=== PATIENT | female | born 1940 | race African-American/Black ===

== ENCOUNTER → 2016-12-24 | Outpatient (CLI) | payer MEDICARE, MEDICAID ==
--- NOTE | 2016-12-24 16:53 | RADIOLOGY REPORT (SQ) ---
EXAM DESCRIPTION: U/S NON-OB PELVIS W/O DOP COMPLETED DATE/TIME: 12/24/2016 4:41 pm REASON FOR STUDY: BENIGN NEOPLASM OF UTERUS D28.2 BENIGN NEOPLASM OF UTERINE TUBES AND LIGAMENTS Z5 3.8 PROCEDURE AND TREATMENT NOT CARRIED OUT FOR OTHER REAS COMPARISON: None. TECHNIQUE: Dynamic and static grayscale images acquired of the pelvis via transabdominal approach an d recorded on PACS. Additional selected color Doppler and spectral images recorded. LIMITATIONS: None. FINDINGS: UTERUS: Enlarged. Multiple calcified fibroids. ENDOMETRIAL STRIPE: Not visualized. CERVIX: No nabothian cysts. RIGHT OVARY: Not visualized. LEFT OVARY: Not visualized. FREE FLUID: None noted. OTHER: No other significant finding. MEASUREMENTS: UTERUS: 14.2 x 7.2 x 7.4 cm ENDOMETRIAL STRIPE: Not visualized. RIGHT OVARY: Not visualized. LEFT OVARY: Not visualized. IMPRESSION: Multiple calcified uterine fibroids and enlarged uterus. Ovaries not identified. TECHNICAL DOCUMENTATION: JOB ID: [id number]- All Rights Reserved
== END ==
LOC: RAD 12-15 12:52
PROVIDERS: ATTEND Internal Medicine
DX: D28.2 Benign neoplasm of uterine tubes and ligaments (principal); Z53.8 Procedure and treatment not carried out for other reasons
CPT/HCPCS: 76856

== ENCOUNTER 2017-06-12 14:04 | Observation (INO) | payer MEDICARE, MEDICAID ==
--- NOTE | 2017-06-12 14:34 | ER Document Report ---
ED Neuro Symptoms/Deficit - General Mode of Arrival: Wheelchair Information source: Patient, Relative Notes: Patient is a 77 year old female with a history of TIA and extreme anxiety attacks presents to the emergency department accompanied by her daughter complaining of tingling sensation around her mouth onset 10:00 am today. Daughter called the EMS when she noticed the patient was having a tingly sensation in her left hand as well unintelligible speech. EMS confirmed vitals were fine. Daughter states that the patient has the above symptom every 2-3 months accompanied by unintelligible speech. Daughter states that the patient was diagnosed with extreme anxiety attacks which causes the difference in the patients speech. Daughter is unsure if patient was having another stroke or another anxiety attack. Daughter states during the patients last stroke, the patient was only severely dizzy. Daughter also states that the patient has been occasionally sundowning. Patient was a poor historian due to moderate stage dementia. At bedside, patient was able to understand commands well for upper extremities. When asked name, location, and time, patient gave incomprehensible answers. When asked if had any questions, patient stated " I have so many, just glad to be here". Patient currently takes Tramadol and Aggrenox. TRAVEL OUTSIDE OF THE [place] IN LAST 30 DAYS: No - HPI Patient complains to provider of: No: Facial Droop Onset: Just prior to arrival Patient Orientation: No: Person, Place, Time <ELIOT VIRK - Last Filed: 06/12/17 23:17> <LINN COLEMAN - Last Filed: 06/12/17 23:33> - General Chief Complaint: Numbness Stated Complaint: TINGLING SENSATION ON FACE Time Seen by Provider: 06/12/17 14:10 - Related Data Allergies/Adverse Reactions: No Known Allergies Allergy (Verified 09/21/15 23:28) Past Medical History - General Information source: Patient, Relative - Social History Smoking Status: Former Smoker Cigarette use (# per day): No Chew tobacco use (# tins/day): No Frequency of alcohol use: None Family History: Reviewed & Not Pertinent - Past Medical History Cardiac Medical History: Reports: Hx Hypercholesterolemia, Hx Hypertension Neurological Medical History: Reports: Hx Cerebrovascular Accident, Hx Seizures GI Medical History: Reports: Hx Gastroesophageal Reflux Disease Musculoskeltal Medical History: Reports Hx Arthritis, Reports Hx Gout Psychiatric Medical History: Reports: Hx Anxiety, Hx Dementia Past Surgical History: Reports: Hx Abdominal Surgery - hernia repair, Hx Herniorrhaphy, Hx Tubal Ligation - Immunizations Hx Diphtheria, Pertussis, Tetanus Vaccination: Yes Hx Pneumococcal Vaccination: 08/02/13 <ELIOT VIRK - Last Filed: 06/12/17 23:17> Review of Systems - Review of Systems Constitutional: No symptoms reported EENT: No symptoms reported Cardiovascular: No symptoms reported Respiratory: No symptoms reported Gastrointestinal: No symptoms reported Genitourinary: No symptoms reported Female Genitourinary: No symptoms reported Musculoskeletal: No symptoms reported Skin: No symptoms reported Hematologic/Lymphatic: No symptoms reported Neurological/Psychological: See HPI, Dementia, Numbness, Tingling -: Yes All other systems reviewed and negative <ELIOT VIRK - Last Filed: 06/12/17 23:17> Physical Exam - Notes Notes: GENERAL: Alert, intearcts poorly. No acute distress. HEAD: Normocephalic, atraumatic. EYES: Pupils equal, round, and reactive to light. Extraocular movements intact. ENT: Oral mucosa moist, tongue midline. NECK: Full range of motion. Supple. Trachea midline. LUNGS: Clear to auscultation bilaterally, no wheezes, rales or rhonchi. No respiratory distress. HEART: Regular rate and rhythm. No murmurs, gallops, or rubs. ABDOMEN: Soft, non-tender. Non-distended. Bowel sounds present in all 4 quadrants. EXTREMITIES: Moves all 4 extremities spontaneously. Able to follow commands well for UE, difficulty following commands for lower extremities. trace pitting edema, radial and dorsalis pedis pulses 2/4 bilaterally. No cyanosis. NEUROLOGICAL: Alert. Able to answer some questions normally. When asked location , time, and place, patient was unable to answer speech was garbled and slurred. When asked if she had any questions, patient states " I have so many. Just glad to be here". cranial nerves II through XII grossly intact. Biceps and patellar DTRs 2+. Negative pronator drift. Muscle strength 4/5 RUE, 5/5 LUE. PSYCH: Patient has moderate stage dementia. Some confabulation. Normal mood. SKIN: Warm, dry, normal turgor. No rashes or lesions noted. <ELIOT VIRK - Last Filed: 06/12/17 23:17> - Vital signs Vitals: Pulse Resp BP Pulse Ox 58 L 18 157/65 H 100 06/12/17 14:20 06/12/17 14:20 06/12/17 14:20 06/12/17 14:20 <MONICALISALINN - Last Filed: 06/12/17 23:33> Course - Laboratory Result Diagrams: 06/12/17 15:15 06/12/17 15:15 <ELIOT VIRK - Last Filed: 06/12/17 23:17> - Re-evaluation Re-evalutation: 06/12/17 18:27 CBC shows mild anemia, coags normal, CMP grossly unremarkable slightly elevated LFTs but nonspecific, cardiac enzymes negative, CT scan of the head shows chronic small vessel ischemic disease and an old left parietal infarct but nothing acute, no evidence of bleed. Chest x-ray shows no acute process. Patient's presentation is unclear but concerning for possible stroke, patient is apparently had the same presentation multiple times in the past, daughter reports it happens about every 2 months and they have always thought it was just an anxiety attack, the daughter, Dr. Colón and I all agree will be prudent to try and get an MRI while the symptoms are occurring so we can see if there is any evidence of ischemia. Despite 4 mg of Ativan being given over the course of 2 hours the patient is still wide awake and somewhat agitated, unable to lie still for an MRI. At this point I do not feel comfortable giving any more Ativan given her age and the high dose that we have already reached. I discussed this with the daughter and Dr. Colón all of whom are in agreement , patient's symptoms have cleared, when she arrived she was no longer within timeframe for TPA. Patient appears to have had a TIA, discussed with Dr. Colón who will observe her overnight for a TIA. Patient and family members are agreeable to this plan. 06/12/17 23:32 Symptoms did improve significantly prior to transfer to the floor. - Vital Signs Vital signs: Temp Pulse Resp BP Pulse Ox 98.4 F 60 16 157/77 H 100 06/12/17 14:45 06/12/17 17:40 06/12/17 17:40 06/12/17 17:40 06/12/17 17:40 - Laboratory Result Diagrams: 06/12/17 15:15 06/12/17 15:15 Laboratory results interpreted by me: 06/12/17 06/12/17 15:15 15:15 RBC 3.33 L Hgb 11.6 L Hct 33.7 L MCV 101 H MCH 34.7 H Monocytes % 13.9 H Sodium 145.4 H Carbon Dioxide 31 H Est GFR ( Amer) 57 L Est GFR (Non-Af Amer) 47 L AST 46 H ALT 63 H - EKG Interpretation by Me Additional EKG results interpreted by me: 06/12/17 18:32 EKG shows sinus bradycardia at a rate of 52, left axis deviation, normal intervals, LVH, no ST segment elevations or depressions, nonspecific T-wave flattening in lead III per my interpretation. <LINN COLEMAN - Last Filed: 06/12/17 23:33> ED Alteplase Inc/Exc Criteria - Date/Time patient last known well: Date/Time: 06/12/17 10:00 a.m. - Date/Time patient arrived in ED: _: 06/12/17 14:20 - Inclusion Criteria: 1: Patient presented to ED within 3 hours of acute ischemic stroke symptom onset ? -: No 2: Did baseline CT exclude intracranial hemorrhage and/or other risk factors? -: Yes 3: Is the age of the patient 18 years of age or greater? -: No : If any of the above questions are answered "NO" then stop, patient is not a candidate for Alteplase, : If all of the above questions are answered "YES" then continue with Exclusion Criteria. - Exclusion Criteria: 1: Is there evidence of intracranial hemorrhage on baseline CT? -: No 2: Is there suspicion of subarachnoid hemorrhage (even if CT negative)? -: No 3: Is there a history of serious head trauma, recent previous stroke or NM within 3 months? 4: Does the patient have a clinical presentation consistent with NM or post-NM pericarditis? -: No 5: Is there history of intracranial hemorrhage? -: No 6: On repeated measurement is Systolic BP greater than 185mmHg or Diastolic BP greater that 110 mmHg and is aggressive treatment needed to reduce blood pressure to these limits (e.g. constant infusion of an anti-hypertensive)? -: No 7: Did the patient awake with stroke symptoms? -: No 8: Has the patient had a lumbar puncture or an arterial puncture at a non- compressile site within 7 days? -: No 9: With in the last 14 days did the patient have surgery or major trauma? -: No 10: Is the patient or less than 2 weeks? -: No 11: Was there any active bleeding or acute trauma? -: No 12: Does the patient have intracranial neoplasm, arteriovenous malformation or aneurysm? -: No 13: Does the patient have abnormal glucose (less than 50 or greater than 400mg/ dl)? Record glucose in Comment. -: No 14: Patient has rapidly improving symptoms at the time Alteplase is to be Administered. -: Yes 15: Does the patient have any risks for bleeding, including but not limited to: a.: Current use of Coumadin with PT greater than 15 seconds or INR greater than 1.7. b.: Current use of Pradaxa (Dabigatran). c.: Heparin administereed within the past 48 hours and PTT elevated. d.: Platelet count less than 100,000/mm. e.: Major surgery or serious trauma within 14 days. f.: Gastrointestinal or gynecological urinary bleeding within 14 days. g.: Myocardial Infarction (NM) within 3 months. : If the answer to any of the above questions is "YES" then stop, the patient is not a candidate for Alteplase. : If the answer to all of the above questions is "NO" then the patient may be eligible for the Administration of Alteplase. : If the patient is noted to have seizure activity at onset of Stroke symptoms; Consult Neurologist for further evaluation. - The patient is: -: Included and is eligible to receive Alteplase. *Initiate bed placement at higher level of care* --: No Reviewd risks & benefits of thrombolytic therapy: I have reviewed the risks and benefits of thrombolytic therapy with the patient and/or his/her family. -: Excluded and not eligible to receive Alteplase for the above exclusions. --: Yes -: Excluded and not eligible to receive Alteplase for other reasons (specify in comments): - Diagnosis of TIA: -: Patient presented with transient symptoms that are now resolved and no other neurologic findings are currently present. List symptoms in comments. -: Yes -: Patient is NOT a candidate for tPA. -: Yes -: ____(put name in comment) has been consulted for admission and continued evaluation of risk factor assessment. Comment: Lilly <MONICALINN GONZALEZ - Last Filed: 06/12/17 23:33> ED NIH Stroke Scale - NIH Stroke Scale *: 1. NIH scale should be completed with appropriate accompanying assessment tools. *: 2. The NIH should reflect what the patient is capable of doing and should not be coached by the clinician. 1a. Level of Consciousness: 0=Alert;keenly responsive -: 1=Drowsy -: 2=Obtunded -: 3=Coma/unresponsive or reflex to noxious stimuli. 1a. Responses: 0 1b. Orientation Questions: a. What month is it? -: b. How old are you? -: 0=Answers both questions correctly. -: 1=Answers one question correctly or patient is intubated or has orotracheal trauma. -: 2=Answers neither question correctly. 1b. Responses: 2 1c. Response to commands: a. Open and close eyes? -: b. Squeak Rattle And Leak Repairer and release hand? -: Credit is given despite weakness. Demonstration of task is permitted. Substitute command if hands cannot be used. -: 0=Performs both tasks correctly -: 1=Performs one task correctly -: 2=Performs neither task correctly 1c. Responses: 0 2. Gaze: Establish eye contact and instruct patient to "Follow my finger" -: 0=Normal -: 1=Partial gaze palsy. Gaze is abnormal in one or both eyes, but where forced deviation or total gaze paresis is not present. -: 2=Forced deviation or total gaze paresis. 3. Visual Best: Sees fingers in all four quadrants. -: 0=No visual loss. -: 1=Partial hemianopsia. -: 2=Complete hemianopsia. -: 3=Bilateral hemianopsia (including Cortical blindness) 4. Facial Movement: Instruct patient to: -: a. Show me your teeth -: b. Raise your eyebrows -: c. Close your eyes -: d. Smile -: 0=Normal symmetrical movement -: 1=Minor paralysis (flattened nasolabial fold, asymmetry on smiling). -: 2=Partial paralysis (total or near total paralysis of lower face). -: 3=Complete paralysis of upper and lower face 4. Responses: 0 5. Motor functions (left arm): Alternate sides and extend each arm with palms down (90 degrees if sitting or 45 degrees for supine). -: 0=No drift;limb holds for full 10 seconds. -: 1=Drift; limb holds but drifts down before full 10 seconds, but does not hit bed. -: 2=Some effort against gravity; limb cannot get to or maintain position. -: 3=No effort against gravity; limb falls. -: 4=No movement. -: UN=Amputation, joint fusion, explain in comments. 5. Responses (left arm): 0 5. Motor Functions (right arm): Alternate sides and extend each arm with palms down (90 degrees if sitting or 45 degrees for supine). -: 0=No drift;limb holds for full 10 seconds. -: 1=Drift; limb holds but drifts down before full 10 seconds, but does not hit bed. -: 2=Some effort against gravity; limb cannot get to or maintain position. -: 3=No effort against gravity; limb falls. -: 4=No movement. -: UN=Amputation, joint fusion, explain in comments. 5. Responses (right arm): 0 6. Motor Functions (left leg): With patient lying supine, alternate sides and extend each leg (30 degrees always while supine). -: 0=No drift, leg holds position for full 5 seconds -: 1=Drift; leg falls before full 5 seconds but does not hit bed. -: 2=Some effort against gravity, leg falls to bed but some effort against gravity. -: 3=No effort against gravity, leg falls to bed immediately. -: 4=No movement. -: UN=Amputation, joint fusion; explain in comments. 6. Responses (left leg): UN - Does not understand the command, will not follow the command 6. Motor Functions (right leg): With patient lying supine, alternate sides and extend each leg (30 degrees always while supine). -: 0=No drift, leg holds position for full 5 seconds -: 1=Drift; leg falls before full 5 seconds but does not hit bed. -: 2=Some effort against gravity, leg falls to bed but some effort against gravity. -: 3=No effort against gravity, leg falls to bed immediately. -: 4=No movement. -: UN=Amputation, joint fusion; explain in comments. 6. Responses (right leg): UN - Does not understand the command, will not follow the command 7. Limb Ataxia: With eyes open instruct patient to: -: a. "Touch your finger to your nose". -: b. "Touch your heel to your vance" -: 0=Absent -: 1=Present in one limb. -: 2=Present in two limbs. -: UN=Amputation or joint fusion; explain in comments. 7. Responses: UN - Does not understand the command 8. Sensory: Test sensation using pinprick or noxious stimuli. Test as many body parts as possible. -: 0=Normal;no sensory loss -: 1=Mile to moderate sensory loss (patient feels pin prick but is less sharp on affected side). -: 2=Severe or total sensory loss. 9. Best Language: Instruct patient to: -: a. "Describe what you see in this picture." -: b. "Name the items in this picture." -: c. "Read these sentences." -: 0=No aphasia, normal -: 1=Mild to moderate aphasia. -: 2=Severe aphasia -: 3=Mute, global aphasia, no usable speech or auditory comprehension. 9. Responses: 1 10. Articulation, Dysarthia: Instruct patient to: -: "Read these words" or "Repeat these words" -: 0=Normal -: 1=Mild to moderate; patient may slur some words but can be understood without difficulty. -: 2=Severe; patients speech so slurred as to be unintelligible in the absence of dysphasia. -: UN=Intubated or other physical barrier, explain in comments. 10. Responses: UN - Does not cooperate with testing 11. Extinction or inattention: 0=No abnormality -: 1= Visual, tactile, auditory, spatial, or personal inattention or extinction to bilateral simulation in one or the sensory modalities. -: 2=Profound romi-inattention or romi-inattention to more than one modality; does not recognize own hand. Total Score: 3 Notes: Very difficult to perform an NIH on this patient as she either does not understand my commands or refuses to cooperate with the testing on multiple areas. Patient's degree of dementia interferes with my ability to perform these tests. <LINN COLEMAN - Last Filed: 06/12/17 23:33> Discharge <ELIOT VIRK - Last Filed: 06/12/17 23:17> - Discharge Admitting Provider: [facility] Admitted: [facility]IL[facility] Scribe Attestation: 06/12/17 23:33 I personally performed the services described in the documentation, reviewed and edited the documentation which was dictated to the scribe in my presence, and it accurately records my words and actions. <LINN COLEMAN - Last Filed: 06/12/17 23:33> - Discharge Clinical Impression: TIA (transient ischemic attack) Qualifiers: Transient cerebral ischemia type: unspecified Qualified Code(s): G45.9 - Transient cerebral ischemic attack, unspecified Hypertension Qualifiers: Hypertension type: essential hypertension Qualified Code(s): I10 - Essential ( primary) hypertension Condition: Good Disposition: ADMITTED OBSERVATION Scribe Documentation - Scribe Written by Chelibe:: Abdelrahman Gunn, 06/12/2017 15:53 acting as scribe for :: Mahin <ELITO VIRK - Last Filed: 06/12/17 23:17>
--- NOTE | 2017-06-12 15:00 | RADIOLOGY REPORT (SQ) ---
EXAM DESCRIPTION: CT HEAD WITHOUT COMPLETED DATE/TIME: 06/12/2017 2:43 pm REASON FOR STUDY: tingling to face, h/o TIA COMPARISON: None. TECHNIQUE: Axial images acquired through the brain without intravenous contrast. Images reviewed wi th bone, brain and subdural windows. Images stored on PACS. All CT scanners at this facility use dose modulation, iterative reconstruction, and/or weight based d osing when appropriate to reduce radiation dose to as low as reasonably achievable (ALARA). [facility]: Dose Right [facility]: CareDose [facility]: Dose Right [facility]: Teradose 4D [facility]: [employer] RADIATION DOSE: Up-to-date CT equipment and radiation dose reduction techniques were employed. CTDIv ol: 64.6 mGy. DLP: 1034 mGy-cm.mGy. LIMITATIONS: None. FINDINGS: VENTRICLES: Age-appropriate. CEREBRUM: No hemorrhage or mass or shift. Chronic posterior periventricular low density, most pronou nced in the left parietal lobe. Consistent with small vessel disease and old left parietal infarct. Stable appearance. CEREBELLUM: No masses. No hemorrhage. No alteration of density. No evidence for acute infarction. EXTRAAXIAL SPACES: Age-related involutional change. No fluid collections. No masses. ORBITS AND GLOBE: No intra- or extraconal masses. Normal contour of globe without masses. CALVARIUM: No fracture. PARANASAL SINUSES: No fluid or mucosal thickening. SOFT TISSUES: No mass or hematoma. OTHER: No other significant finding. IMPRESSION: 1. Chronic changes including small vessel disease and old left parietal infarct. EVIDENCE OF ACUTE STROKE: NO. TECHNICAL DOCUMENTATION: JOB ID: [id number] Quality ID # [id number]: Final reports with documentation of one or more dose reduction techniques (e.g., Au tomated exposure control, adjustment of the mA and/or kV according to patient size, use of iterative reconstruction technique) 2010 [employer]- All Rights Reserved
--- NOTE | 2017-06-12 15:05 | RADIOLOGY REPORT (SQ) ---
EXAM DESCRIPTION: CHEST SINGLE VIEW COMPLETED DATE/TIME: 06/12/2017 2:52 pm REASON FOR STUDY: tingling to face, h/o TIA COMPARISON: 2015. NUMBER OF VIEWS: One view. TECHNIQUE: Single frontal radiographic view of the chest acquired. LIMITATIONS: None. FINDINGS: LUNGS AND PLEURA: Low lung volumes. No opacities, masses or pneumothorax. No pleural eff usion. MEDIASTINUM AND HILAR STRUCTURES: No masses. No contour abnormality. HEART AND VASCULAR STRUCTURES: Normal size. No evidence for failure. BONES: No acute findings. HARDWARE: None in the chest. OTHER: No other significant finding. IMPRESSION: LOW LUNG VOLUMES. NO SIGNIFICANT RADIOGRAPHIC FINDING IN THE CHEST. TECHNICAL DOCUMENTATION: JOB ID: [id number] [employer]- All Rights Reserved
[2017-06-12] MEDS ORDERED: LORAZEPAM INJ 2 MG/1 ML VIAL IV ONE ×4 (15:25→17:40)
[2017-06-12 15:26] LABS: ABSOLUTE LYMPHOCYTES (AUTO) 1.3 10^3/uL (0.5-4.7); ABSOLUTE MONOCYTES (AUTO) 0.7 10^3/uL (0.1-1.4); ABSOLUTE NEUT (AUTO) 3.3 10^3/uL (1.7-8.2); BASOPHILS % (AUTO) 0.4 % (0-2); EOSINOPHILS % (AUTO) 0.7 % (0-6); HEMATOCRIT 33.7 % (36.0-47.0); HEMOGLOBIN 11.6 g/dL (12.0-15.5); HGB HCT DIFFERENCE 1.1; MEAN CORPUSCULAR HEMOGLOBIN 34.7 pg (27.0-33.4); MEAN CORPUSCULAR HGB CONC 34.3 g/dL (32.0-36.0); MEAN CORPUSCULAR VOLUME 101 fl (80-97); MONOCYTES % (AUTO) 13.9 % (3-13); RED BLOOD COUNT 3.33 10^6/uL (3.72-5.28); RED CELL DISTRIBUTION WIDTH 13.3 % (11.5-14.0); WHITE BLOOD COUNT 5.4 10^3/uL (4.0-10.5)
[2017-06-12 15:31] LABS: PROTHROMBIN TIME 13.4 SEC (11.4-15.4)
[2017-06-12 15:32] LABS: PARTIAL THROMBOPLASTIN TIME 27.2 SEC (23.5-35.8)
[2017-06-12 15:39] LABS: ALANINE AMINOTRANSFERASE 63 U/L (9-52); ALBUMIN 3.5 g/dL (3.5-5.0); ALKALINE PHOSPHATASE 78 U/L (38-126); ANION GAP 9 (5-19); ASPARTATE AMINO TRANSFERASE 46 U/L (14-36); BILIRUBIN,DIRECT 0.4 mg/dL (0.0-0.4); BILIRUBIN,TOTAL 0.6 mg/dL (0.2-1.3); BLOOD UREA NITROGEN 14 mg/dL (7-20); CALCIUM 8.8 mg/dL (8.4-10.2); CARBON DIOXIDE 31 mmol/L (22-30); CHLORIDE 105 mmol/L (98-107); CREATINE KINASE 43 U/L (30-135); CREATININE RESULT 1.12 mg/dL (0.52-1.25); GLUCOSE 87 mg/dL (75-110); POTASSIUM 3.7 mmol/L (3.6-5.0); SODIUM 145.4 mmol/L (137-145); TOTAL PROTEIN 6.8 g/dL (6.3-8.2)
[2017-06-12 15:51] LABS: CREATINE KINASE MB 0.25 ng/mL (<4.55)
[2017-06-12 15:54] LABS: TROPONIN I < 0.012 ng/mL
[2017-06-12] MEDS ORDERED: ASPIRIN 325 MG TABLET, ENT COATED PO ONE (18:29)
--- NOTE | 2017-06-12 21:20 | EKG REPORT ---
SEVERITY:- ABNORMAL ECG - SINUS RHYTHM LEFT AXIS DEVIATION PROBABLE LEFT VENTRICULAR HYPERTROPHY : Confirmed by: Kong Hobson MD 12-Jun-2017 21:20:18
[2017-06-13] MEDS ORDERED: COLCHICINE 0.6 MG TABLET PO PRN (01:48)
[2017-06-13] MEDS ORDERED: LEVETIRACETAM 500 MG TABLET PO ONE ×4 (02:00→06:00)
[2017-06-13] MEDS ORDERED: LORAZEPAM 0.5 MG TABLET PO ONE (02:00)
[2017-06-13] MEDS ORDERED: ASPIRIN/DIPYRIDAMOLE 25-200 MG 1 CAP.SR CPMP.12HR PO ONE ×3 (02:00→06:00)
[2017-06-13] MEDS ORDERED: DONEPEZIL HCL 5 MG TABLET PO ONE ×3 (02:15→06:00)
[2017-06-13] MEDS ORDERED: LORAZEPAM 0.5 MG TABLET PO PRN (03:58)
[2017-06-13] MEDS ORDERED: AMLODIPINE BESYLATE 5 MG TABLET PO SCH (10:00)
[2017-06-13] MEDS ORDERED: FLUTICASONE NASAL SPRAY 50 MCG/SPRY 120 SPRAY/16 GM NASL SCH (10:00)
[2017-06-13] MEDS ORDERED: LORAZEPAM 0.5 MG TABLET PO SCH (10:00)
[2017-06-13] MEDS ORDERED: ASCORBIC ACID 500 MG TABLET PO SCH (10:00)
[2017-06-13] MEDS ORDERED: METOPROLOL TARTRATE 100 MG TABLET PO SCH (10:00)
[2017-06-13] MEDS ORDERED: CHOLECALCIFEROL (D3) 400 UNIT TABLET PO SCH (10:00)
[2017-06-13] MEDS ORDERED: CYANOCOBALAMIN (VITAMIN B-12) 1,000 MCG TABLET PO SCH (10:00)
[2017-06-13 11:37] VITALS: BP 123/58
--- NOTE | 2017-06-13 12:31 | PDOC H&P ---
History of Present Illness Admission Date/PCP: 06/12/17 19:24 MARI ANDERSON MD History of Present Illness: CLAUDIA DUMONT is a 77 year old female, she has a history of vascular dementia , remote history of CVA, she was in the emergency room last night for evaluation of tingling sensation around her mouth, in the emergency room CT head was done it was negative for acute CVA. MRI of the brain was attempted yesterday, but patient was restless despite 4 mg of Ativan IV. Hospital admission was advised for observation because family was concerned about the somnolence after the IV lorazepam, they thought she is sundowning because of her dementia Past Medical History Cardiac Medical History: Reports: Hyperlipidema, Hypertension Neurological Medical History: Reports: Ischemic CVA, Seizures, Other - Vascular dementia GI Medical History: Reports: Gastroesophageal Reflux Disease Musculoskeltal Medical History: Reports: Arthritis, Gout Psychiatric Medical History: Reports: Dementia Hematology: Reports: Anemia Past Surgical History Past Surgical History: Reports: Herniorrhaphy, Tubal Ligation Social History Smoking Status: Former Smoker Frequency of Alcohol Use: None Hx Recreational Drug Use: No Hx Prescription Drug Abuse: No Family History Family History: Reviewed & Not Pertinent Parental Family History Reviewed: Yes Children Family History Reviewed: Yes Sibling(s) Family History Reviewed.: Yes Medication/Allergy Home Medications: RX: Ascorbic Acid [Vitamin C 500 mg Tablet] 500 mg PO DAILY 09/15/14 RX: Aspirin/Dipyridamole [Aggrenox 25 mg-200 mg Capsule] 1 cap PO BID 09/15/14 RX: Donepezil HCl [Aricept 5 mg Tablet] 10 mg PO DAILY 09/15/14 RX: Levetiracetam [Keppra] 1,000 mg PO BID 09/15/14 RX: Memantine HCl [Namenda Xr] 28 mg PO QHS 09/15/14 RX: Cholecalciferol (Vitamin D3) [Vitamin D3 400 Unit Tablet] 400 unit PO DAILY 10/05/15 RX: Cyanocobalamin (Vitamin B-12) [Vitamin B-12] 500 mcg PO DAILY 10/05/15 RX: Latanoprost [Xalatan 0.005% Oph Soln 2.5 ml] 1 drop OP QHS 10/05/15 RX: Lorazepam [Ativan 0.5 mg Tablet] 0.5 mg PO BID 10/05/15 RX: Mometasone Furoate [Nasonex] 1 inh NS DAILY PRN 10/05/15 RX: Vortioxetine Hydrobromide [Trintellix] 5 mg PO BID 10/05/15 RX: Zinc Sulfate [Zinc-220 Capsule] 220 mg PO DAILY PRN 10/05/15 RX: Amlodipine Besylate/Valsartan [Exforge 5-320 mg Tablet] 1 tab PO DAILY 06/13 RX: Fexofenadine HCl [Tressa] 180 mg PO DAILY 06/13/17 RX: Potassium Chloride [Klor-Con M10] 10 meq PO DAILY 06/13/17 Allergies/Adverse Reactions: No Known Allergies Allergy (Verified 09/21/15 23:28) Review of Systems Constitutional: ABSENT: chills, fever(s), headache(s), weight gain, weight loss Eyes: ABSENT: visual disturbances Ears: ABSENT: hearing changes Cardiovascular: ABSENT: chest pain, dyspnea on exertion, edema, orthropnea, palpitations Respiratory: ABSENT: cough, hemoptysis Gastrointestinal: ABSENT: abdominal pain, constipation, diarrhea, hematemesis, hematochezia, nausea, vomiting Genitourinary: ABSENT: dysuria, hematuria Musculoskeletal: ABSENT: joint swelling Integumentary: ABSENT: rash, wounds Neurological: ABSENT: abnormal gait, abnormal speech, confusion, dizziness, focal weakness, syncope Psychiatric: ABSENT: anxiety, depression, homidical ideation, suicidal ideation Endocrine: ABSENT: cold intolerance, heat intolerance, menstrual abnormalities, polydipsia, polyuria Hematologic/Lymphatic: ABSENT: easy bleeding, easy bruising, lymphadenopathy Physical Exam Vital Signs: Temp Pulse Resp BP Pulse Ox 97.4 F 56 L 17 123/58 L 100 06/13/17 11:04 06/13/17 11:04 06/13/17 11:04 06/13/17 11:04 06/13/17 11:04 Intake & Output 06/12/17 06/13/17 06/14/17 06:59 06:59 06:59 Intake Total 160 381 Balance 160 381 Weight 95.9 kg General appearance: PRESENT: no acute distress, well-developed, well-nourished Head exam: PRESENT: atraumatic, normocephalic Eye exam: PRESENT: conjunctiva pink, EOMI, PERRLA Ear exam: PRESENT: normal external ear exam Mouth exam: PRESENT: moist, tongue midline Neck exam: PRESENT: full ROM Respiratory exam: PRESENT: clear to auscultation vanessa Cardiovascular exam: PRESENT: RRR, +S1, +S2 Pulses: PRESENT: normal dorsalis pedis pul, +2 pedal pulses bilateral Vascular exam: PRESENT: normal capillary refill GI/Abdominal exam: PRESENT: normal bowel sounds, soft Rectal exam: PRESENT: deferred Neurological exam: PRESENT: alert, CN II-XII grossly intact Skin exam: PRESENT: dry, intact, warm Results Impressions: Chest X-Ray 06/12/17 14:11 IMPRESSION: LOW LUNG VOLUMES. NO SIGNIFICANT RADIOGRAPHIC FINDING IN THE CHEST. Head CT 06/12/17 14:11 IMPRESSION: 1. Chronic changes including small vessel disease and old left parietal infarct. EVIDENCE OF ACUTE STROKE: NO. Assessment & Plan - Diagnosis (1) Vascular dementia Qualifiers: Dementia behavioral disturbance: without behavioral disturbance Qualified Code(s): F01.50 - Vascular dementia without behavioral disturbance Is this a current diagnosis for this admission?: Yes (2) Hypertension Qualifiers: Hypertension type: essential hypertension Qualified Code(s): I10 - Essential (primary) hypertension Is this a current diagnosis for this admission?: Yes
[2017-06-13] MEDS ORDERED: LEVETIRACETAM 500 MG TABLET PO SCH (18:00)
[2017-06-13] MEDS ORDERED: ASPIRIN/DIPYRIDAMOLE 25-200 MG 1 CAP.SR CPMP.12HR PO SCH (18:00)
[2017-06-13] MEDS ORDERED: LATANOPROST 0.005% OPH SOLN 2.5 ML OU SCH (22:00)
[2017-06-13] MEDS ORDERED: DONEPEZIL HCL 5 MG TABLET PO SCH (22:00)
== END 2017-06-13 13:45 | disposition home health service (06) ==
LOC: ER 14:04 → EH 19:24 → 3W 21:46
PROVIDERS: ADMIT Internal Medicine; ATTEND Internal Medicine
DX: F01.50 Vascular dementia, unspecified severity, without behavioral disturbance, psychotic disturbance, mood disturbance, and anxiety (principal); I10 Essential (primary) hypertension; R20.2 Paresthesia of skin; R45.1 Restlessness and agitation; R40.0 Somnolence; R47.81 Slurred speech; D64.9 Anemia, unspecified; R00.1 Bradycardia, unspecified; Z79.899 Other long term (current) drug therapy; Z79.82 Long term (current) use of aspirin; Z86.73 Personal history of transient ischemic attack (TIA), and cerebral infarction without residual deficits; Z87.891 Personal history of nicotine dependence
CPT/HCPCS: 93005; 96376; 99285; 96374; 36415; 82553; 82550; 85025; 85610; 85730; 80053; 84484; 71010; 70450; 93010; A9270 ×7; J2060; J3490

== ENCOUNTER 2017-09-09 18:58 | Emergency (ER) | payer MEDICARE, OTHER ==
[2017-09-09] MEDS ORDERED: RISPERIDONE 1 MG TABLET PO ONE (20:52)
[2017-09-09] MEDS ORDERED: RISPERIDONE 0.25 MG TABLET PO ONE (21:45)
[2017-09-09] MEDS ORDERED: HALOPERIDOL LACTATE INJ 5 MG/1 ML VIAL IM ONE (22:27)
--- NOTE | 2017-09-09 22:32 | ER Document Report ---
ED General - General Chief Complaint: Anxiety Stated Complaint: PANIC ATTACK Time Seen by Provider: 09/09/17 20:51 Information source: Relative Cannot obtain history due to: Dementia Notes: Patient is a 77-year-old female with a history of vascular dementia who presents with what family describes as a panic attack. Family states that every 1-2 months patient has episodes in which she becomes extremely anxious, begins twitching and moving, and will refuse to walk. Patient has been evaluated on multiple occasions for this complaint by her primary doctor and was hospitalized on one prior occasion and discharge the same day of hospitalization. The patient is unable to provide meaningful history secondary to her degree of dementia. Daughter notes that there has been multiple medication changes recently and she attributes these changes to today's events. TRAVEL OUTSIDE OF THE [place] IN LAST 30 DAYS: No - Related Data Allergies/Adverse Reactions: No Known Allergies Allergy (Verified 09/21/15 23:28) Past Medical History - General Information source: Relative - Social History Smoking Status: Never Smoker Frequency of alcohol use: None Drug Abuse: None Lives with: Family Family History: Reviewed & Not Pertinent Patient has suicidal ideation: No Patient has homicidal ideation: No - Past Medical History Cardiac Medical History: Reports: Hx Hypercholesterolemia, Hx Hypertension Pulmonary Medical History: Denies: Hx Tuberculosis Neurological Medical History: Reports: Hx Cerebrovascular Accident, Hx Seizures Renal/ Medical History: Denies: Hx Peritoneal Dialysis GI Medical History: Reports: Hx Gastroesophageal Reflux Disease Musculoskeltal Medical History: Reports Hx Arthritis, Reports Hx Gout Psychiatric Medical History: Reports: Hx Anxiety, Hx Dementia Denies: Hx Depression Past Surgical History: Reports: Hx Abdominal Surgery - hernia repair, Hx Herniorrhaphy, Hx Tubal Ligation - Immunizations Hx Diphtheria, Pertussis, Tetanus Vaccination: Yes Hx Pneumococcal Vaccination: 08/02/13 Review of Systems - Review of Systems -: Yes ROS unobtainable due to patient's medical condition Physical Exam - Vital signs Vitals: Temp Pulse Resp BP Pulse Ox 98.3 F 58 L 20 182/68 H 98 09/09/17 19:13 09/09/17 19:13 09/09/17 19:13 09/09/17 19:13 09/09/17 19:13 Interpretation: Hypertensive, Bradycardic Notes: PHYSICAL EXAMINATION: GENERAL: Well-appearing, well-nourished and in no acute distress. HEAD: Atraumatic, normocephalic. EYES: Pupils equal round and reactive to light, extraocular movements intact, sclera anicteric, conjunctiva are normal. ENT: nares patent, oropharynx clear without exudates. Moist mucous membranes. NECK: Normal range of motion, supple without lymphadenopathy LUNGS: Breath sounds clear to auscultation bilaterally and equal. No wheezes rales or rhonchi. HEART: Regular bradycardia without murmurs ABDOMEN: Soft, nontender, normoactive bowel sounds. No guarding, no rebound. No masses appreciated. EXTREMITIES: no pitting or edema. No cyanosis. NEUROLOGICAL: No focal neurological deficits. Moves all extremities spontaneously PSYCH: Unintelligible speech SKIN: Warm, Dry, normal turgor, no rashes or lesions noted. Course - Re-evaluation Re-evalutation: 09/09/17 22:32 Patient presents with what family describes as her typical acute panic reaction. She is nonverbal, twitching in the bed, crying out in a uninterpretable noise. Family states that in the past she used to receive lorazepam for this but stopped working and actually worsened her symptoms a proximal 1 week ago. They state that this is the first time she has had a similar episode since that time. 0.5 mg of oral risperidone was administered with no effect. 3 mg of intramuscular haloperidol will be tried. 09/10/17 00:43 Patient has had improvement of her symptoms after receiving intramuscular haloperidol. The daughter did request that I speak to the patient's primary care doctor Dr. Anderson regarding possible hospitalization for observation. I did discuss with Dr. Anderson, emphasized the daughter's concerns about not having any medications available at home. As we have no beds available in the hospital, Dr. Anderson has stated that we cannot hospitalize the patient for this indication tonight and is requested that she follow-up in the office in the morning. 09/10/17 01:02 I have explained the care plan to the family remains displeased with this stating "were just going to come right back". I have again emphasized that we cannot routinely hospitalize her mother for panic attacks. Concerned about her ability to ambulate. Will recheck a set of vitals and and that the patient prior to discharge. Will also dispense with a 3 mg Haldol. - Vital Signs Vital signs: Temp Pulse Resp BP Pulse Ox 98.3 F 71 16 157/87 H 95 09/09/17 19:13 09/10/17 02:26 09/10/17 02:26 09/10/17 02:26 09/10/17 02:26 Discharge - Discharge Clinical Impression: Vascular dementia Qualifiers: Dementia behavioral disturbance: with behavioral disturbance Qualified Code(s) : F01.51 - Vascular dementia with behavioral disturbance Condition: Stable Disposition: HOME, SELF-CARE Instructions: Anxiety ([facility]) Additional Instructions: Unfortunately, we are unable to hospitalize your mother tonight as there are no beds available in the hospital. I discussed with Dr. Anderson and he has emphasized that despite not having medicines at home we are unfortunately unable to do what you requested tonight. Please return for any additional concerns you may have. Referrals: MARI ANDERSON MD [Primary Care Provider] - Follow up tomorrow
[2017-09-10] MEDS ORDERED: HALOPERIDOL 2 MG TABLET PO ONE ×2 (01:02→03:22)
[2017-09-10 08:43] VITALS: BP 155/88
== END 2017-09-10 09:28 | disposition home or self-care (01) ==
LOC: ER 18:58
DX: F01.51 Vascular dementia, unspecified severity, with behavioral disturbance (principal); F41.9 Anxiety disorder, unspecified; F41.0 Panic disorder [episodic paroxysmal anxiety]
CPT/HCPCS: 99284; 96372; A9270 ×2; J1630; J3490

== ENCOUNTER 2017-09-10 11:42 | Inpatient (IN) | payer MEDICARE, MEDICAID ==
[2017-09-10 12:56] LABS: ABSOLUTE LYMPHOCYTES (AUTO) 0.8 10^3/uL (0.5-4.7); ABSOLUTE MONOCYTES (AUTO) 0.7 10^3/uL (0.1-1.4); ABSOLUTE NEUT (AUTO) 9.2 10^3/uL (1.7-8.2); BASOPHILS % (AUTO) 0.4 % (0-2); EOSINOPHILS % (AUTO) 0.1 % (0-6); HEMATOCRIT 37.1 % (36.0-47.0); HEMOGLOBIN 12.6 g/dL (12.0-15.5); LYMPHOCYTES % (AUTO) 7.7 % (13-45); MEAN CORPUSCULAR HEMOGLOBIN 34.2 pg (27.0-33.4); MEAN CORPUSCULAR HGB CONC 34.1 g/dL (32.0-36.0); MEAN CORPUSCULAR VOLUME 100 fl (80-97); MONOCYTES % (AUTO) 6.8 % (3-13); PLATELET COUNT 200 10^3/uL (150-450); RED CELL DISTRIBUTION WIDTH 12.2 % (11.5-14.0); TOTAL CELLS COUNTED % (AUTO) 100 %; WHITE BLOOD COUNT 10.9 10^3/uL (4.0-10.5)
--- NOTE | 2017-09-10 13:06 | RADIOLOGY REPORT (SQ) ---
EXAM DESCRIPTION: CHEST SINGLE VIEW COMPLETED DATE/TIME: 09/10/2017 12:59 pm REASON FOR STUDY: 15 hw Stroke like symptoms COMPARISON: AP chest 06/12/2017, 02/19/2016 EXAM PARAMETERS: NUMBER OF VIEWS: One view. TECHNIQUE: Single frontal radiographic view of the chest acquired. RADIATION DOSE: NA LIMITATIONS: None. FINDINGS: LUNGS AND PLEURA: No opacities, masses or pneumothorax. No pleural effusion. MEDIASTINUM AND HILAR STRUCTURES: No masses. Contour normal. HEART AND VASCULAR STRUCTURES: Heart normal in size. Normal vasculature. BONES: No acute findings. HARDWARE: None in the chest. OTHER: No other significant finding. IMPRESSION: NO ACUTE RADIOGRAPHIC FINDING IN THE CHEST. TECHNICAL DOCUMENTATION: JOB ID: [id number] [employer]- All Rights Reserved
--- NOTE | 2017-09-10 13:10 | RADIOLOGY REPORT (SQ) ---
EXAM DESCRIPTION: CT HEAD WITHOUT COMPLETED DATE/TIME: 09/10/2017 12:55 pm REASON FOR STUDY: stroke like symptoms COMPARISON: MRI brain 04/18/[address] brain exams 04/25/2013, most recently 06/12/2017 TECHNIQUE: Axial images acquired through the brain without intravenous contrast. Images reviewed wi th bone, brain and subdural windows. Images stored on PACS. All CT scanners at this facility use dose modulation, iterative reconstruction, and/or weight based d osing when appropriate to reduce radiation dose to as low as reasonably achievable (ALARA). [facility]: Dose Right [facility]: CareDose [facility]: Dose Right [facility]: Teradose 4D [facility]: Smart [employer] RADIATION DOSE: CT Rad equipment meets quality standard of care and radiation dose reduction techniq ues were employed. CTDIvol: 64.6 mGy. DLP: 3489 mGy-cm. mGy. LIMITATIONS: Motion artifact, patient scanned twice FINDINGS: Motion artifact throughout the study. On images without motion, there is no gross acute intracranial hemorrhage mass effect or midline shif t. Old infarcts are seen in mid edgar, and left frontoparietal cortex and subcortical white matter. No hydrocephalus. IMPRESSION: Limited study. No gross acute findings. Old infarcts in the mid edgar, and left frontop arietal cortex and subcortical white matter EVIDENCE OF ACUTE STROKE: NO. COMMENT: Quality ID # [id number]: Final reports with documentation of one or more dose reduction techniques (e.g., Automated exposure control, adjustment of the mA and/or kV according to patient size, use of iterative reconstruction technique) TECHNICAL DOCUMENTATION: JOB ID: [id number] [employer]- All Rights Reserved
[2017-09-10 13:14] LABS: ALANINE AMINOTRANSFERASE 32 U/L (9-52); ALBUMIN 4.2 g/dL (3.5-5.0); ALKALINE PHOSPHATASE 87 U/L (38-126); ANION GAP 13 (5-19); ASPARTATE AMINO TRANSFERASE 55 U/L (14-36); BILIRUBIN,DIRECT 0.1 mg/dL (0.0-0.4); BILIRUBIN,TOTAL 0.5 mg/dL (0.2-1.3); BLOOD UREA NITROGEN 13 mg/dL (7-20); CALCIUM 9.8 mg/dL (8.4-10.2); CARBON DIOXIDE 27 mmol/L (22-30); CHLORIDE 102 mmol/L (98-107); GLUCOSE 115 mg/dL (75-110); SODIUM 142.3 mmol/L (137-145); TOTAL PROTEIN 7.2 g/dL (6.3-8.2)
[2017-09-10 13:38] LABS: APPEARANCE,URINE CLEAR; BILIRUBIN,URINE NEGATIVE (NEGATIVE); COLOR,URINE YELLOW; GLUCOSE, URINE NEGATIVE (NEGATIVE); KETONES,URINE NEGATIVE (NEGATIVE); LEUKOCYTE ESTERASE,URINE NEGATIVE (NEGATIVE); NITRITE,URINE NEGATIVE (NEGATIVE); PROTEIN,URINE NEGATIVE (NEGATIVE); URINE SPECIFIC GRAVITY 1.011; UROBILINOGEN,URINE NEGATIVE mg/dL (<2.0)
[2017-09-10] MEDS ORDERED: LORAZEPAM INJ 2 MG/1 ML VIAL IV PRN (14:23)
[2017-09-10] MEDS ORDERED: LORAZEPAM INJ 2 MG/1 ML VIAL ONE (14:36)
[2017-09-10] MEDS ORDERED: LORAZEPAM INJ 2 MG/1 ML VIAL IV ONE (15:08)
--- NOTE | 2017-09-10 16:20 | RADIOLOGY REPORT (SQ) ---
EXAM DESCRIPTION: MRI HEAD WITHOUT COMPLETED DATE/TIME: 09/10/2017 4:08 pm REASON FOR STUDY: 15 hw confusion, altered mental status COMPARISON: CT brain 09/10/2017, 06/12/2017 MRI brain 04/18/2013 TECHNIQUE: Multiplanar imaging includes non-contrasted T1, T2, FLAIR, and diffusion with ADC map seq uences. Images stored on PACS. LIMITATIONS: Patient moved throughout the studies. Very limited exam. FINDINGS: Rapid sequences were used. Study is significantly degraded by patient motion artifact. FLAIR and T1 weighted images show old infarcts in the left parieto-occipital and left posterior front al regions, and moderate chronic white matter disease in the by parietal region. No hydrocephalus. No mass effect or midline shift. No gross acute infarct IMPRESSION: Extremely limited study. No acute infarct identified EVIDENCE OF ACUTE STROKE: NO. TECHNICAL DOCUMENTATION: JOB ID: [id number] [employer]- All Rights Reserved
[2017-09-10] MEDS: POTASSIUM CHLORIDE 10 MEQ TABLET.SA PO SCH ×2 (19:00→23:17)
[2017-09-10] MEDS ORDERED: [UNRECOGNIZED DRUG - OTHER] PO SCH (21:30)
[2017-09-10] MEDS ORDERED: (PENDING PHARMACY ID) (Fexofenadine Hcl [Allegra Allergy] 180 MG) PO SCH (21:30)
[2017-09-10] MEDS ORDERED: VALSARTAN PO SCH (21:30)
[2017-09-10] MEDS ORDERED: AMLODIPINE BESYLATE PO SCH (21:30)
--- NOTE | 2017-09-10 22:13 | EKG REPORT ---
SEVERITY:- ABNORMAL ECG - SINUS RHYTHM MULTIPLE ATRIAL PREMATURE COMPLEXES LEFT AXIS DEVIATION LEFT VENTRICULAR HYPERTROPHY : Confirmed by: Ryan Pinedo 10-Sep-2017 22:13:07
[2017-09-10] MEDS: LEVETIRACETAM 500 MG TABLET PO SCH (23:17)
[2017-09-10] MEDS: ASPIRIN/DIPYRIDAMOLE 25-200 MG 1 CAP.SR CPMP.12HR PO SCH (23:17)
[2017-09-10] MEDS: ATORVASTATIN CALCIUM 40 MG TABLET PO SCH (23:17)
[2017-09-10] MEDS: LORAZEPAM 0.5 MG TABLET PO SCH (23:17)
[2017-09-10] MEDS: DONEPEZIL HCL 5 MG TABLET PO SCH (23:17)
[2017-09-10] MEDS: LATANOPROST 0.005% OPH SOLN 2.5 ML OU SCH (23:17)
[2017-09-10] MEDS: BUSPIRONE HCL 10 MG TABLET PO SCH (23:17)
[2017-09-11] MEDS: POTASSI CL 20 MEQ/50 ML RIDER 20 MEQ/50 ML RTUPB IV SCH ×2 (01:32→04:00)
[2017-09-11] MEDS ORDERED: LORAZEPAM INJ 2 MG/1 ML VIAL IV PRN (03:46)
[2017-09-11] MEDS ORDERED: Memantine Hcl [Namenda Xr] 28 MG PO SCH (09:45)
[2017-09-11 09:52] LABS: HEMATOCRIT 35.9 % (36.0-47.0); HEMOGLOBIN 12.1 g/dL (12.0-15.5); MEAN CORPUSCULAR HEMOGLOBIN 34.1 pg (27.0-33.4); MEAN CORPUSCULAR HGB CONC 33.8 g/dL (32.0-36.0); MEAN CORPUSCULAR VOLUME 101 fl (80-97); PLATELET COUNT 189 10^3/uL (150-450); RED BLOOD COUNT 3.56 10^6/uL (3.72-5.28); RED CELL DISTRIBUTION WIDTH 12.3 % (11.5-14.0); WHITE BLOOD COUNT 12.3 10^3/uL (4.0-10.5)
[2017-09-11] MEDS ORDERED: FLUTICASONE NASAL SPRAY 50 MCG/SPRY 120 SPRAY/16 GM NASL SCH (10:00)
[2017-09-11] MEDS ORDERED: LORATADINE 10 MG TABLET PO SCH (10:00)
[2017-09-11 10:16] LABS: ANION GAP 10 (5-19); BLOOD UREA NITROGEN 15 mg/dL (7-20); CALCIUM 9.4 mg/dL (8.4-10.2); CARBON DIOXIDE 29 mmol/L (22-30); CHLORIDE 104 mmol/L (98-107); GLUCOSE 97 mg/dL (75-110); POTASSIUM 3.3 mmol/L (3.6-5.0)
[2017-09-11] MEDS: LORAZEPAM 0.5 MG TABLET PO SCH (11:59)
[2017-09-11] MEDS: POTASSIUM CHLORIDE 10 MEQ TABLET.SA PO SCH (12:00)
[2017-09-11] MEDS: CHOLECALCIFEROL (D3) 400 UNIT TABLET PO SCH (12:00)
[2017-09-11] MEDS: CYANOCOBALAMIN (VITAMIN B-12) 1,000 MCG TABLET PO SCH (12:00)
[2017-09-11] MEDS: ASCORBIC ACID 500 MG TABLET PO SCH (12:01)
[2017-09-11] MEDS: ASPIRIN/DIPYRIDAMOLE 25-200 MG 1 CAP.SR CPMP.12HR PO SCH ×2 (12:01→21:40)
[2017-09-11] MEDS: LEVETIRACETAM 500 MG TABLET PO SCH ×2 (12:01→21:41)
[2017-09-11] MEDS: BUSPIRONE HCL 10 MG TABLET PO SCH ×2 (12:02→21:40)
[2017-09-11] MEDS: METOPROLOL SUCCINATE 50 MG TAB.SR.24H PO SCH (12:02)
[2017-09-11] MEDS: AMLODIPINE BESYLATE 5 MG TABLET PO SCH (12:03)
[2017-09-11] MEDS: VALSARTAN 160 MG TABLET PO SCH (12:03)
[2017-09-11] MEDS: Vortioxetine Hydrobromide [Trintellix] 5 MG PO SCH ×2 (12:04→17:40)
--- NOTE | 2017-09-11 13:10 | PDOC H&P ---
History of Present Illness Admission Date/PCP: 09/10/17 11:54 MARI ANDERSON MD History of Present Illness: CLAUDIA DUMONT is a 77 year old female, she has a history of CVA, vascular dementia she was in the emergency room on 09/09/1903/21/2018 for evaluation of, panic attack according to the ER family stated that record patient has episode of panic attack roughly about every 2 months when she gets extremely anxious with twitching refused to talk the emergency room she was appropriately evaluated, CT head was done without contrast showed old infarct in the mid edgar , left frontoparietal cortex there was no hydrocephalus. I discussed this case with the ED physician last night and the consensus was that she should be discharged home to follow with me in the office the following morning. She came to the office with the ambulance. She was evaluated in the office she was aphasic, she would not answer questions, she was having involuntary contractions of the facial musculature and also upper extremity muscles almost like clonus. MRI of the brain was done, it was a poor study because of extreme motion artifact there is no acute infarct identified the blood work showed hypokalemia Past Medical History Cardiac Medical History: Reports: Hyperlipidema, Hypertension Neurological Medical History: Reports: Ischemic CVA, Seizures GI Medical History: Reports: Gastroesophageal Reflux Disease Musculoskeltal Medical History: Reports: Arthritis, Gout Psychiatric Medical History: Reports: Dementia Hematology: Reports: Anemia Past Surgical History Past Surgical History: Reports: Herniorrhaphy, Tubal Ligation Social History Smoking Status: Former Smoker Last Time Smoked: quit Frequency of Alcohol Use: None Hx Recreational Drug Use: No Drugs: None Hx Prescription Drug Abuse: No Family History Family History: Reviewed & Not Pertinent Parental Family History Reviewed: Yes Children Family History Reviewed: Yes Sibling(s) Family History Reviewed.: Yes Medication/Allergy Home Medications: Amlodipine Besylate/Valsartan [Amlodipine-Valsartan 5-320 mg] 1 each PO DAILY Ascorbic Acid [Vitamin C 500 mg Tablet] 500 mg PO DAILY 09/10/17 Aspirin/Dipyridamole [Aggrenox 25 mg-200 mg Capsule] 1 each PO BID 09/10/17 Buspirone HCl 15 mg PO BID 09/10/17 Cholecalciferol (Vitamin D3) [Vitamin D3] 400 unit PO DAILY 09/10/17 Cyanocobalamin (Vitamin B-12) [Vitamin B-12] 500 mcg PO DAILY 09/10/17 Donepezil HCl 10 mg PO QHS 09/10/17 Fexofenadine HCl [Tressa Allergy] 180 mg PO DAILY 09/10/17 Latanoprost [Xalatan 0.005% Oph Soln 2.5 ml] 1 drop OU QHS 09/10/17 Levetiracetam 1,000 mg PO Q12 09/10/17 Lorazepam [Ativan 0.5 mg Tablet] 0.5 mg PO Q12 09/10/17 Memantine HCl [Namenda Xr] 28 mg PO DAILY 09/10/17 Metoprolol Succinate 100 mg PO DAILY 09/10/17 Mometasone Furoate [Nasonex] 1 spray NASL DAILY 09/10/17 Potassium Chloride 10 meq PO DAILY 09/10/17 Rosuvastatin Calcium [Crestor 20 mg Tablet] 20 mg PO QHS 09/10/17 Vortioxetine Hydrobromide [Brintellix] 5 mg PO BID 09/10/17 Zinc Sulfate [Zinc-220 Capsule] 220 mg PO SUTUTHSA 09/10/17 Allergies/Adverse Reactions: No Known Allergies Allergy (Verified 09/10/17 12:25) Review of Systems ROS unobtainable: Due to mental status Physical Exam Vital Signs: Temp Pulse Resp BP Pulse Ox 99.3 F 73 16 135/59 H 96 09/11/17 11:35 09/11/17 11:35 09/11/17 11:35 09/11/17 11:35 09/11/17 11:35 Intake & Output 09/10/17 09/11/17 09/12/17 06:59 06:59 06:59 Intake Total 657 Output Total 1 Balance 656 Weight 93.7 kg General appearance: PRESENT: no acute distress, well-developed, well-nourished Head exam: PRESENT: atraumatic, normocephalic Eye exam: PRESENT: conjunctiva pink, EOMI, PERRLA. ABSENT: scleral icterus Ear exam: PRESENT: normal external ear exam Mouth exam: PRESENT: moist, tongue midline Neck exam: PRESENT: full ROM. ABSENT: carotid bruit, JVD, lymphadenopathy, thyromegaly Cardiovascular exam: PRESENT: RRR. ABSENT: diastolic murmur, rubs, systolic murmur Pulses: PRESENT: normal dorsalis pedis pul, +2 pedal pulses bilateral Vascular exam: PRESENT: normal capillary refill GI/Abdominal exam: PRESENT: normal bowel sounds, soft. ABSENT: distended, guarding, mass, organolmegaly, rebound, tenderness Rectal exam: PRESENT: deferred Neurological exam: PRESENT: alert, ataxia, aphasic Skin exam: PRESENT: dry, intact, warm Results Laboratory Results: 09/11/17 09:13 09/11/17 09:13 09/10/17 09/10/17 09/10/17 12:43 12:43 13:15 WBC 10.9 H RBC 3.70 L Hgb 12.6 Hct 37.1 MCV 100 H MCH 34.2 H MCHC 34.1 RDW 12.2 Plt Count 200 Seg Neutrophils % 85.0 H Lymphocytes % 7.7 L Monocytes % 6.8 Eosinophils % 0.1 Basophils % 0.4 Absolute Neutrophils 9.2 H Absolute Lymphocytes 0.8 Absolute Monocytes 0.7 Absolute Eosinophils 0.0 Absolute Basophils 0.0 Sodium 142.3 Potassium 3.0 L* Chloride 102 Carbon Dioxide 27 Anion Gap 13 BUN 13 Creatinine 0.96 Est GFR ( Amer) > 60 Est GFR (Non-Af Amer) 56 L Glucose 115 H Calcium 9.8 Magnesium Total Bilirubin 0.5 AST 55 H ALT 32 Alkaline Phosphatase 87 Total Protein 7.2 Albumin 4.2 Urine Color YELLOW Urine Appearance CLEAR Urine pH 5.0 Ur Specific [place] 1.011 Urine Protein NEGATIVE Urine Glucose (UA) NEGATIVE Urine Ketones NEGATIVE Urine Blood SMALL H Urine Nitrite NEGATIVE Ur Leukocyte Esterase NEGATIVE Urine WBC (Auto) 2 Urine RBC (Auto) 0 09/11/17 09/11/17 09:13 09:13 WBC 12.3 H RBC 3.56 L Hgb 12.1 Hct 35.9 L MCV 101 H MCH 34.1 H MCHC 33.8 RDW 12.3 Plt Count 189 Seg Neutrophils % Lymphocytes % Monocytes % Eosinophils % Basophils % Absolute Neutrophils Absolute Lymphocytes Absolute Monocytes Absolute Eosinophils Absolute Basophils Sodium 143.0 Potassium 3.3 L Chloride 104 Carbon Dioxide 29 Anion Gap 10 BUN 15 Creatinine 1.00 Est GFR ( Amer) > 60 Est GFR (Non-Af Amer) 54 L Glucose 97 Calcium 9.4 Magnesium 1.8 Total Bilirubin AST ALT Alkaline Phosphatase Total Protein Albumin Urine Color Urine Appearance Urine pH Ur Specific [place] Urine Protein Urine Glucose (UA) Urine Ketones Urine Blood Urine Nitrite Ur Leukocyte Esterase Urine WBC (Auto) Urine RBC (Auto) Impressions: Chest X-Ray 09/10/17 00:00 IMPRESSION: NO ACUTE RADIOGRAPHIC FINDING IN THE CHEST. Head CT 09/10/17 00:00 IMPRESSION: Limited study. No gross acute findings. 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 Head MRI 09/10/17 12:14 IMPRESSION: Extremely limited study. No acute infarct identified EVIDENCE OF ACUTE STROKE: NO. Assessment & Plan - Diagnosis (1) Expressive aphasia Is this a current diagnosis for this admission?: Yes Plan: The differential diagnosis includes TIA, CVA, active seizure. The MRI of the brain did not show any acute CVA, this could be TIA, history of CVA in the past with vascular dementia, she be admitted and manage according to stroke protocol (2) Epilepsy Qualifiers: Epilepsy type: unspecified Intractability: not intractable Status epilepticus: without status epilepticus Qualified Code(s): G40.909 - Epilepsy , unspecified, not intractable, without status epilepticus Is this a current diagnosis for this admission?: Yes (3) Vascular dementia Qualifiers: Dementia behavioral disturbance: without behavioral disturbance Qualified Code(s): F01.51 - Vascular dementia with behavioral disturbance Is this a current diagnosis for this admission?: Yes
--- NOTE | 2017-09-11 17:35 | PDOC PROGRESS REPORT ---
Subjective Progress Note for:: 09/11/17 Subjective:: She was seen by the bedside still have expressive dysphasia, she was admitted yesterday because of concern for transient ischemic attack versus seizure versus CVA MRI brain was negative for any acute ischemia, symptoms probably represent TIA versus seizure disorder, EEG is pending, will managed per stroke protocol. Reason For Visit: CVA Physical Exam Vital Signs: Temp Pulse Resp BP Pulse Ox 99.3 F 73 16 135/59 H 96 09/11/17 11:35 09/11/17 11:35 09/11/17 11:35 09/11/17 11:35 09/11/17 11:35 Intake & Output 09/10/17 09/11/17 09/12/17 06:59 06:59 06:59 Intake Total 657 Output Total 1 Balance 656 Weight 93.7 kg General appearance: PRESENT: no acute distress Eye exam: PRESENT: PERRLA Respiratory exam: PRESENT: clear to auscultation vanessa Cardiovascular exam: PRESENT: +S1, +S2 Neurological exam: PRESENT: alert, abnormal gait, aphasic Results Laboratory Results: 09/11/17 09:13 09/11/17 09:13 09/11/17 09/11/17 09:13 09:13 WBC 12.3 H RBC 3.56 L Hgb 12.1 Hct 35.9 L MCV 101 H MCH 34.1 H MCHC 33.8 RDW 12.3 Plt Count 189 Sodium 143.0 Potassium 3.3 L Chloride 104 Carbon Dioxide 29 Anion Gap 10 BUN 15 Creatinine 1.00 Est GFR ( Amer) > 60 Est GFR (Non-Af Amer) 54 L Glucose 97 Calcium 9.4 Magnesium 1.8 Impressions: Chest X-Ray 09/10/17 00:00 IMPRESSION: NO ACUTE RADIOGRAPHIC FINDING IN THE CHEST. Head CT 09/10/17 00:00 IMPRESSION: Limited study. No gross acute findings. 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 Head MRI 09/10/17 12:14 IMPRESSION: Extremely limited study. No acute infarct identified EVIDENCE OF ACUTE STROKE: NO. Assessment & Plan - Diagnosis (1) Expressive aphasia Is this a current diagnosis for this admission?: Yes (2) Epilepsy Qualifiers: Epilepsy type: unspecified Intractability: not intractable Status epilepticus: without status epilepticus Qualified Code(s): G40.909 - Epilepsy , unspecified, not intractable, without status epilepticus Is this a current diagnosis for this admission?: Yes (3) Vascular dementia Qualifiers: Dementia behavioral disturbance: without behavioral disturbance Qualified Code(s): F01.51 - Vascular dementia with behavioral disturbance Is this a current diagnosis for this admission?: Yes - Plan Summary Plan Summary: She will continue present line of management
[2017-09-11] MEDS ORDERED: ZINC SULFATE 220 MG CAPSULE PO SCH (21:26)
[2017-09-11] MEDS: DONEPEZIL HCL 5 MG TABLET PO SCH (21:40)
[2017-09-11] MEDS: ATORVASTATIN CALCIUM 40 MG TABLET PO SCH (21:41)
[2017-09-11] MEDS: Memantine Hcl [Namenda Xr] 28 MG PO SCH (21:43)
[2017-09-11] MEDS: LATANOPROST 0.005% OPH SOLN 2.5 ML OU SCH (21:46)
[2017-09-12] MEDS: CHOLECALCIFEROL (D3) 400 UNIT TABLET PO SCH (10:51)
[2017-09-12] MEDS: Vortioxetine Hydrobromide [Trintellix] 5 MG PO SCH ×2 (10:53→17:54)
[2017-09-12] MEDS: METOPROLOL SUCCINATE 50 MG TAB.SR.24H PO SCH (10:53)
[2017-09-12] MEDS: LEVETIRACETAM 500 MG TABLET PO SCH ×2 (10:53→21:59)
[2017-09-12] MEDS: CYANOCOBALAMIN (VITAMIN B-12) 1,000 MCG TABLET PO SCH (10:53)
[2017-09-12] MEDS: ASPIRIN/DIPYRIDAMOLE 25-200 MG 1 CAP.SR CPMP.12HR PO SCH ×2 (10:54→21:59)
[2017-09-12] MEDS: BUSPIRONE HCL 10 MG TABLET PO SCH ×2 (10:54→22:00)
[2017-09-12] MEDS: POTASSIUM CHLORIDE 10 MEQ TABLET.SA PO SCH (10:55)
[2017-09-12] MEDS: ASCORBIC ACID 500 MG TABLET PO SCH (10:55)
[2017-09-12] MEDS: AMLODIPINE BESYLATE 5 MG TABLET PO SCH (10:55)
[2017-09-12] MEDS: VALSARTAN 160 MG TABLET PO SCH (10:55)
[2017-09-12 11:05] LABS: HEMOGLOBIN 12.2 g/dL (12.0-15.5)
[2017-09-12 11:10] LABS: HEMATOCRIT 35.9 % (36.0-47.0); MEAN CORPUSCULAR HEMOGLOBIN 34.2 pg (27.0-33.4); MEAN CORPUSCULAR VOLUME 101 fl (80-97); PLATELET COUNT 164 10^3/uL (150-450); RED BLOOD COUNT 3.56 10^6/uL (3.72-5.28); RED CELL DISTRIBUTION WIDTH 12.2 % (11.5-14.0); WHITE BLOOD COUNT 14.1 10^3/uL (4.0-10.5)
[2017-09-12 11:19] LABS: ALANINE AMINOTRANSFERASE 28 U/L (9-52); ALBUMIN 3.2 g/dL (3.5-5.0); ALKALINE PHOSPHATASE 69 U/L (38-126); ANION GAP 8 (5-19); ASPARTATE AMINO TRANSFERASE 42 U/L (14-36); BILIRUBIN,DIRECT 0.2 mg/dL (0.0-0.4); BILIRUBIN,TOTAL 0.7 mg/dL (0.2-1.3); BLOOD UREA NITROGEN 15 mg/dL (7-20); CALCIUM 8.9 mg/dL (8.4-10.2); CARBON DIOXIDE 30 mmol/L (22-30); CHLORIDE 101 mmol/L (98-107); GLUCOSE 111 mg/dL (75-110); POTASSIUM 3.1 mmol/L (3.6-5.0); TOTAL PROTEIN 6.2 g/dL (6.3-8.2)
[2017-09-12 11:25] LABS: ABSOLUTE LYMPHOCYTES# (MANUAL) 1.7 10^3/uL (0.5-4.7); ABSOLUTE MONOCYTES # (MANUAL) 1.7 10^3/uL (0.1-1.4); ABSOLUTE NEUTROPHILS# (MANUAL) 10.6 10^3/uL (1.7-8.2); BASOPHILS % (MANUAL) 0 % (0-2); EOSINOPHILS % (MANUAL) 1 % (0-6); LYMPHOCYTES % (MANUAL) 12 % (13-45); MONOCYTES % (MANUAL) 12 % (3-13); SEGMENTED NEUTROPHILS % (MAN) 75 % (42-78); TOTAL CELLS COUNTED 100
[2017-09-12 11:26] LABS: PLATELET COMMENT ADEQUATE
--- NOTE | 2017-09-12 16:38 | PDOC PROGRESS REPORT ---
Subjective Progress Note for:: 09/12/17 Subjective:: She was seen by the bedside, she has gait abnormality with risk of fall, she was seen by physical therapy, rehabilitation was recommended. The potassium was low today. Reason For Visit: TIA VERSUS SEIZURE Physical Exam Vital Signs: Temp Pulse Resp BP Pulse Ox 99.2 F 67 16 155/64 H 98 09/12/17 11:40 09/12/17 14:00 09/12/17 11:40 09/12/17 11:40 09/12/17 11:40 Intake & Output 09/11/17 09/12/17 09/13/17 06:59 06:59 06:59 Intake Total 657 345 350 Output Total 1 Balance 656 345 350 Weight 93.7 kg 93.9 kg Head exam: PRESENT: atraumatic, normocephalic Eye exam: PRESENT: PERRLA. ABSENT: scleral icterus Mouth exam: PRESENT: moist, tongue midline Neck exam: PRESENT: full ROM Respiratory exam: PRESENT: clear to auscultation vanessa Cardiovascular exam: PRESENT: RRR, +S1, +S2 Pulses: PRESENT: normal dorsalis pedis pul, +2 pedal pulses bilateral Vascular exam: PRESENT: normal capillary refill GI/Abdominal exam: PRESENT: normal bowel sounds, soft Rectal exam: PRESENT: deferred Neurological exam: PRESENT: alert Psychiatric exam: PRESENT: appropriate affect, normal mood Skin exam: PRESENT: dry, intact, warm Results Laboratory Results: 09/12/17 06:14 09/12/17 06:14 09/12/17 09/12/17 06:14 06:14 WBC 14.1 H RBC 3.56 L Hgb 12.2 Hct 35.9 L MCV 101 H MCH 34.2 H MCHC 34.0 RDW 12.2 Plt Count 164 Seg Neutrophils % Not Reportable Lymphocytes % Not Reportable Monocytes % Not Reportable Eosinophils % Not Reportable Basophils % Not Reportable Absolute Neutrophils Not Reportable Absolute Lymphocytes Not Reportable Absolute Monocytes Not Reportable Absolute Eosinophils Not Reportable Absolute Basophils Not Reportable Sodium 139.0 Potassium 3.1 L Chloride 101 Carbon Dioxide 30 Anion Gap 8 BUN 15 Creatinine 0.92 Est GFR ( Amer) > 60 Est GFR (Non-Af Amer) 59 L Glucose 111 H Calcium 8.9 Total Bilirubin 0.7 AST 42 H ALT 28 Alkaline Phosphatase 69 Total Protein 6.2 L Albumin 3.2 L 02/10/18 02/11/18 02/11/18 17:45 00:19 06:14 Troponin I < 0.012 < 0.012 < 0.012 Impressions: Chest X-Ray 09/10/17 00:00 IMPRESSION: NO ACUTE RADIOGRAPHIC FINDING IN THE CHEST. Head CT 09/10/17 00:00 IMPRESSION: Limited study. No gross acute findings. 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 Head MRI 09/10/17 12:14 IMPRESSION: Extremely limited study. No acute infarct identified EVIDENCE OF ACUTE STROKE: NO. Assessment & Plan - Diagnosis (1) Expressive aphasia Is this a current diagnosis for this admission?: Yes (2) Epilepsy Qualifiers: Epilepsy type: unspecified Intractability: not intractable Status epilepticus: without status epilepticus Qualified Code(s): G40.909 - Epilepsy , unspecified, not intractable, without status epilepticus Is this a current diagnosis for this admission?: Yes (3) Vascular dementia Qualifiers: Dementia behavioral disturbance: without behavioral disturbance Qualified Code(s): F01.51 - Vascular dementia with behavioral disturbance Is this a current diagnosis for this admission?: Yes (4) Hypokalemia Is this a current diagnosis for this admission?: Yes Plan: Replace potassium
[2017-09-12] MEDS: NASONEX NASAL SPRAY NASL SCH (16:55)
[2017-09-12] MEDS: FEXOFENADINE 180 MG PO SCH (16:55)
[2017-09-12] MEDS: POTASSI CL 20 MEQ/50 ML RIDER 20 MEQ/50 ML RTUPB IV SCH ×2 (17:54→20:03)
[2017-09-12] MEDS: ATORVASTATIN CALCIUM 40 MG TABLET PO SCH (22:00)
[2017-09-12] MEDS: DONEPEZIL HCL 5 MG TABLET PO SCH (22:00)
[2017-09-12] MEDS: Memantine Hcl [Namenda Xr] 28 MG PO SCH (22:00)
[2017-09-12] MEDS: LATANOPROST 0.005% OPH SOLN 2.5 ML OU SCH (22:27)
[2017-09-13] MEDS: POTASSIUM CHLORIDE 10 MEQ TABLET.SA PO SCH (10:06)
[2017-09-13] MEDS: ASPIRIN/DIPYRIDAMOLE 25-200 MG 1 CAP.SR CPMP.12HR PO SCH ×2 (10:06→22:35)
[2017-09-13] MEDS: CYANOCOBALAMIN (VITAMIN B-12) 1,000 MCG TABLET PO SCH (10:06)
[2017-09-13] MEDS: ASCORBIC ACID 500 MG TABLET PO SCH (10:07)
[2017-09-13] MEDS: AMLODIPINE BESYLATE 5 MG TABLET PO SCH (10:07)
[2017-09-13] MEDS: BUSPIRONE HCL 10 MG TABLET PO SCH ×2 (10:07→22:35)
[2017-09-13] MEDS: LEVETIRACETAM 500 MG TABLET PO SCH ×2 (10:07→22:36)
[2017-09-13] MEDS: VALSARTAN 160 MG TABLET PO SCH (10:11)
[2017-09-13] MEDS: METOPROLOL SUCCINATE 50 MG TAB.SR.24H PO SCH (10:12)
[2017-09-13] MEDS: CHOLECALCIFEROL (D3) 400 UNIT TABLET PO SCH (10:14)
[2017-09-13] MEDS: FEXOFENADINE 180 MG PO SCH (10:15)
[2017-09-13] MEDS: Vortioxetine Hydrobromide [Trintellix] 5 MG PO SCH ×2 (10:15→17:15)
[2017-09-13] MEDS: NASONEX NASAL SPRAY NASL SCH (10:16)
[2017-09-13 18:54] LABS: ABSOLUTE BASOPHILS # (AUTO) 0.1 10^3/uL (0.0-0.2); ABSOLUTE MONOCYTES (AUTO) 1.8 10^3/uL (0.1-1.4); ABSOLUTE NEUT (AUTO) 10.4 10^3/uL (1.7-8.2); BASOPHILS % (AUTO) 0.4 % (0-2); EOSINOPHILS % (AUTO) 0.2 % (0-6); HEMATOCRIT 35.7 % (36.0-47.0); HEMOGLOBIN 12.3 g/dL (12.0-15.5); LYMPHOCYTES % (AUTO) 7.5 % (13-45); MEAN CORPUSCULAR HEMOGLOBIN 34.4 pg (27.0-33.4); MEAN CORPUSCULAR HGB CONC 34.4 g/dL (32.0-36.0); MEAN CORPUSCULAR VOLUME 100 fl (80-97); MONOCYTES % (AUTO) 13.6 % (3-13); PLATELET COUNT 180 10^3/uL (150-450); RED BLOOD COUNT 3.57 10^6/uL (3.72-5.28); RED CELL DISTRIBUTION WIDTH 12.1 % (11.5-14.0); SEGMENTED NEUTROPHILS % (AUTO) 78.3 % (42-78); TOTAL CELLS COUNTED % (AUTO) 100 %; WHITE BLOOD COUNT 13.3 10^3/uL (4.0-10.5)
[2017-09-13 19:06] LABS: ALANINE AMINOTRANSFERASE 29 U/L (9-52); ALBUMIN 3.2 g/dL (3.5-5.0); ALKALINE PHOSPHATASE 69 U/L (38-126); ANION GAP 8 (5-19); ASPARTATE AMINO TRANSFERASE 29 U/L (14-36); BILIRUBIN,DIRECT 0.4 mg/dL (0.0-0.4); BILIRUBIN,TOTAL 0.9 mg/dL (0.2-1.3); BLOOD UREA NITROGEN 16 mg/dL (7-20); CALCIUM 9.2 mg/dL (8.4-10.2); CARBON DIOXIDE 29 mmol/L (22-30); CHLORIDE 100 mmol/L (98-107); GLUCOSE 112 mg/dL (75-110); POTASSIUM 3.3 mmol/L (3.6-5.0); SODIUM 137.2 mmol/L (137-145); TOTAL PROTEIN 6.4 g/dL (6.3-8.2)
--- NOTE | 2017-09-13 21:05 | PDOC PROGRESS REPORT ---
Subjective Progress Note for:: 09/13/17 Subjective:: Patient was admitted for evaluation of symptoms that suggest TIA or seizure. The EEG that was done was normal. The EEG by itself does not rule out a seizure but is a good tool when there is active seizure that could be captured with the device. Patient unable to walk, she was seen by physical therapy, recommend rehabilitation in the skilled nursing. discharge planning to be consulted for placement in skilled nursing for rehab. Reason For Visit: TIA VERSUS SEIZURE Physical Exam Vital Signs: Temp Pulse Resp BP Pulse Ox 99.2 F 65 16 154/58 H 100 09/13/17 16:30 09/13/17 16:30 09/13/17 16:30 09/13/17 16:30 09/13/17 16:30 Intake & Output 09/12/17 09/13/17 09/14/17 06:59 06:59 06:59 Intake Total 345 1494 200 Balance 345 1494 200 Weight 93.9 kg 96.4 kg General appearance: PRESENT: no acute distress Head exam: PRESENT: atraumatic, normocephalic Eye exam: PRESENT: PERRLA Ear exam: PRESENT: normal external ear exam Mouth exam: PRESENT: moist, tongue midline Neck exam: PRESENT: full ROM Respiratory exam: PRESENT: clear to auscultation vanessa Cardiovascular exam: PRESENT: +S1, +S2 Vascular exam: PRESENT: normal capillary refill GI/Abdominal exam: PRESENT: soft Rectal exam: PRESENT: deferred Neurological exam: PRESENT: alert Results Laboratory Results: 09/13/17 18:34 09/13/17 18:34 09/13/17 09/13/17 18:34 18:34 WBC 13.3 H RBC 3.57 L Hgb 12.3 Hct 35.7 L MCV 100 H MCH 34.4 H MCHC 34.4 RDW 12.1 Plt Count 180 Seg Neutrophils % 78.3 H Lymphocytes % 7.5 L Monocytes % 13.6 H Eosinophils % 0.2 Basophils % 0.4 Absolute Neutrophils 10.4 H Absolute Lymphocytes 1.0 Absolute Monocytes 1.8 H Absolute Eosinophils 0.0 Absolute Basophils 0.1 Sodium 137.2 Potassium 3.3 L Chloride 100 Carbon Dioxide 29 Anion Gap 8 BUN 16 Creatinine 0.91 Est GFR ( Amer) > 60 Est GFR (Non-Af Amer) > 60 Glucose 112 H Calcium 9.2 Total Bilirubin 0.9 AST 29 ALT 29 Alkaline Phosphatase 69 Total Protein 6.4 Albumin 3.2 L 09/11/17 09/12/17 09/12/17 17:45 00:19 06:14 Troponin I < 0.012 < 0.012 < 0.012 Impressions: Chest X-Ray 09/10/17 00:00 IMPRESSION: NO ACUTE RADIOGRAPHIC FINDING IN THE CHEST. Head CT 09/10/17 00:00 IMPRESSION: Limited study. No gross acute findings. 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 Head MRI 09/10/17 12:14 IMPRESSION: Extremely limited study. No acute infarct identified EVIDENCE OF ACUTE STROKE: NO. Assessment & Plan - Diagnosis (1) Expressive aphasia Is this a current diagnosis for this admission?: Yes (2) Epilepsy Qualifiers: Epilepsy type: unspecified Intractability: not intractable Status epilepticus: without status epilepticus Qualified Code(s): G40.909 - Epilepsy , unspecified, not intractable, without status epilepticus Is this a current diagnosis for this admission?: Yes (3) Vascular dementia Qualifiers: Dementia behavioral disturbance: without behavioral disturbance Qualified Code(s): F01.50 - Vascular dementia without behavioral disturbance Is this a current diagnosis for this admission?: Yes (4) Hypokalemia Is this a current diagnosis for this admission?: Yes
[2017-09-13] MEDS: DONEPEZIL HCL 5 MG TABLET PO SCH (22:35)
[2017-09-13] MEDS: ATORVASTATIN CALCIUM 40 MG TABLET PO SCH (22:35)
[2017-09-13] MEDS: Memantine Hcl [Namenda Xr] 28 MG PO SCH (22:35)
[2017-09-13] MEDS: LATANOPROST 0.005% OPH SOLN 2.5 ML OU SCH (22:37)
[2017-09-14 06:59] LABS: ABSOLUTE EOSINOPHILS # (AUTO) 0.1 10^3/uL (0.0-0.6); ABSOLUTE LYMPHOCYTES (AUTO) 1.3 10^3/uL (0.5-4.7); ABSOLUTE MONOCYTES (AUTO) 1.9 10^3/uL (0.1-1.4); ABSOLUTE NEUT (AUTO) 9.1 10^3/uL (1.7-8.2); BASOPHILS % (AUTO) 0.2 % (0-2); EOSINOPHILS % (AUTO) 0.6 % (0-6); HEMATOCRIT 34.4 % (36.0-47.0); HEMOGLOBIN 11.8 g/dL (12.0-15.5); LYMPHOCYTES % (AUTO) 10.4 % (13-45); MEAN CORPUSCULAR HEMOGLOBIN 34.1 pg (27.0-33.4); MEAN CORPUSCULAR HGB CONC 34.3 g/dL (32.0-36.0); MEAN CORPUSCULAR VOLUME 100 fl (80-97); PLATELET COUNT 184 10^3/uL (150-450); RED BLOOD COUNT 3.46 10^6/uL (3.72-5.28); RED CELL DISTRIBUTION WIDTH 11.9 % (11.5-14.0); SEGMENTED NEUTROPHILS % (AUTO) 73.8 % (42-78); TOTAL CELLS COUNTED % (AUTO) 100 %; WHITE BLOOD COUNT 12.4 10^3/uL (4.0-10.5)
[2017-09-14 07:24] LABS: ALANINE AMINOTRANSFERASE 29 U/L (9-52); ALBUMIN 2.9 g/dL (3.5-5.0); ALKALINE PHOSPHATASE 64 U/L (38-126); ANION GAP 8 (5-19); ASPARTATE AMINO TRANSFERASE 31 U/L (14-36); BILIRUBIN,DIRECT 0.4 mg/dL (0.0-0.4); BILIRUBIN,TOTAL 0.9 mg/dL (0.2-1.3); BLOOD UREA NITROGEN 18 mg/dL (7-20); CALCIUM 8.9 mg/dL (8.4-10.2); CARBON DIOXIDE 30 mmol/L (22-30); CHLORIDE 100 mmol/L (98-107); GLUCOSE 98 mg/dL (75-110); POTASSIUM 3.2 mmol/L (3.6-5.0); SODIUM 138.4 mmol/L (137-145); TOTAL PROTEIN 6.1 g/dL (6.3-8.2)
--- NOTE | 2017-09-14 07:54 | EEG PRO FEE REPORT ---
EEG INTERPRETATION PATIENT NAME: CLAUDIA DUMONT ROOM#: [id number] ORDER#: [id number] DATE OF STUDY: 09/13/2017 : 1940 REFERRING MD: MARI ANDERSON M.D. DIAGNOSIS: Seizures REPORT This is a 77 year old female presenting for routine EEG. During the tracing video is observed and no seizure or other abnormal activity is noted. The background is 8-9 Hz alpha throughout with superimposed motion artifact. No clear focal slowing amplitude asymmetry or epileptiform discharges are identified during the entire tracing. FINAL IMPRESSION: Normal EEG for age. INTERPRETING PHYSICIAN: RADHA JHAVERI M.D. /: MTEFFT TT: [id number] ID: [id number] /: [id number] TD: [id number] JOB: [id number] cc:Cheryl MARTINEZ M.D. >
[2017-09-14] MEDS ORDERED: POTASSI CL 20 MEQ/50 ML RIDER 20 MEQ/50 ML RTUPB IV SCH (09:30)
[2017-09-14] MEDS: NASONEX NASAL SPRAY NASL SCH (11:57)
[2017-09-14] MEDS: FEXOFENADINE 180 MG PO SCH (11:57)
[2017-09-14] MEDS: Vortioxetine Hydrobromide [Trintellix] 5 MG PO SCH ×2 (11:57→17:37)
[2017-09-14] MEDS: LEVETIRACETAM 500 MG TABLET PO SCH ×2 (11:58→22:52)
[2017-09-14] MEDS: METOPROLOL SUCCINATE 50 MG TAB.SR.24H PO SCH (11:58)
[2017-09-14] MEDS: CHOLECALCIFEROL (D3) 400 UNIT TABLET PO SCH (11:58)
[2017-09-14] MEDS: VALSARTAN 160 MG TABLET PO SCH (11:58)
[2017-09-14] MEDS: CYANOCOBALAMIN (VITAMIN B-12) 1,000 MCG TABLET PO SCH (11:58)
[2017-09-14] MEDS: BUSPIRONE HCL 10 MG TABLET PO SCH ×2 (11:59→22:53)
[2017-09-14] MEDS: AMLODIPINE BESYLATE 5 MG TABLET PO SCH (11:59)
[2017-09-14] MEDS: ASCORBIC ACID 500 MG TABLET PO SCH (11:59)
[2017-09-14] MEDS: ASPIRIN/DIPYRIDAMOLE 25-200 MG 1 CAP.SR CPMP.12HR PO SCH ×2 (12:00→22:53)
[2017-09-14] MEDS: POTASSIUM CHLORIDE 10 MEQ TABLET.SA PO SCH (12:00)
--- NOTE | 2017-09-14 14:28 | XCELERA REPORT ---
[address] [address] Transthoracic Echocardiogram Report Name: CLAUDIA DUMONT Age: 77 yrs Gender: Female : 1940 Patient Status: Inpatient Patient Location: [address] [place] [address] Study Date: 09/14/2017 10:44 AM Height: 61 in Weight: 206 lb BSA: 1.9 m2 Procedure: A complete two-dimensional transthoracic echocardiogram was performed (2D, M-mode, spectral and color flow Doppler). The study was technically adequate with some images being suboptimal in quality. Reason For Study: tia Ordering Physician: MARI ANDERSON Performed By: Lisa Yao Interpretation Summary The left ventricular ejection fraction is normal. Doppler measurements suggest impaired left ventricular relaxation, which is associated with grade I/IV or mild diastolic dysfunction There is mild concentric left ventricular hypertrophy. The left ventricle is grossly normal size. Wall motion cannot be accurately commented on, but no definite regional wall motion abnormalities noted. The right ventricular systolic function is normal. The right atrium is normal in size The left atrial size is normal. There is a trace amount of mitral regurgitation There is no mitral valve stenosis. No aortic regurgitation is present. There is no aortic valve stenosis There is a trace or physiologic amount of tricuspid regurgitation Tricuspid regurgitation jet envelope not well defined to measure RV systolic pressure accurately. The aortic root is not well visualized but is probably normal size. The inferior vena cava was not well visualized There is no pericardial effusion. MMode/2D Measurements & Calculations RVDd: 3.0 cm LVIDd: 4.5 cm FS: 38.0 % Ao root diam: 2.3 cm IVSd: 1.0 cm LVIDs: 2.8 cm EDV(Teich): 94.4 ml LVPWd: 0.95 cm ESV(Teich): 30.0 ml Ao root area: 4.0 cm2 EF(Teich): 68.2 % LA dimension: 3.0 cm Doppler Measurements & Calculations MV E max rhiannon: MV P1/2t max rhiannon: Ao V2 max: LV V1 max P.8 cm/sec 92.3 cm/sec 183.3 cm/sec 10.2 mmHg MV A max rhiannon: MV P1/2t: 102.9 msec Ao max PG: LV V1 max: 111.6 cm/sec 13.4 mmHg 159.9 cm/sec MV E/A: 0.81 MVA(P1/2t): 2.1 cm2 MV dec slope: 262.8 cm/sec2 MV dec time: 0.32 sec PA V2 max: TR max rhiannon: 103.7 cm/sec 235.6 cm/sec PA max P.3 mmHgTR max P.2 mmHg Left Ventricle The left ventricle is grossly normal size. There is mild concentric left ventricular hypertrophy. The left ventricular ejection fraction is normal. Doppler measurements suggest impaired left ventricular relaxation, which is associated with grade I/IV or mild diastolic dysfunction. Wall motion cannot be accurately commented on, but no definite regional wall motion abnormalities noted. Right Ventricle The right ventricle is grossly normal size. There is normal right ventricular wall thickness. The right ventricular systolic function is normal. Atria The right atrium is normal in size. The left atrial size is normal. Interarterial septum not well visualized and not well dopplered. Cannot comment on ASD/PFO presence. Mitral Valve The mitral valve is grossly normal. There is no mitral valve stenosis. There is a trace amount of mitral regurgitation. Aortic Valve The aortic valve is grossly normal. There is no aortic valve stenosis. No aortic regurgitation is present. Tricuspid Valve The tricuspid valve is not well visualized, but is grossly normal. There is no tricuspid stenosis. There is a trace or physiologic amount of tricuspid regurgitation. Tricuspid regurgitation jet envelope not well defined to measure RV systolic pressure accurately. Pulmonic Valve The pulmonic valve is not well visualized. Great Vessels The aortic root is not well visualized but is probably normal size. The inferior vena cava was not well visualized. Effusions There is no pericardial effusion. Incidental Findings No definite cardiac source of CVA/TIA noted on this particular trans- thoracic study. Consider ELO if clinically indicated. May consider mobile cardiac telemetry monitoring (MCT) for ruling out transient AFIB. : MARI ANDERSON > Ryan Pinedo
--- NOTE | 2017-09-14 15:40 | RADIOLOGY REPORT (SQ) ---
EXAM DESCRIPTION: CAROTID DOPPLER COMPLETED DATE/TIME: 09/14/2017 3:32 pm REASON FOR STUDY: TIA D46.0 REFRACTORY ANEMIA WITHOUT RING SIDEROBLASTS, SO STATED D46.1 REFRACTOR Y ANEMIA WITH RING SIDEROBLASTS COMPARISON: 02/20/2016. TECHNIQUE: Grayscale ultrasound, Doppler velocity and spectra, and color Doppler images acquired of the extra-cranial carotid and vertebral arteries. Images stored on PACS. LIMITATIONS: None. FINDINGS: RIGHT CAROTID CCA Velocities: Within normal limits. ICA Velocities Peak systolic 1.12 m/s. End diastolic 0.33 m/s. Proximal ICA/CCA peak systolic ratio 1.9. Heterogenous shadowing plaque in the carotid bulb and proximal internal carotid artery. LEFT CAROTID CCA Velocities: Within normal limits. ICA Velocities Peak systolic 1.03 m/s. End diastolic 0.23 m/s. Proximal ICA/CCA peak systolic ratio 1.1. Spectra normal. No significant plaque. VERTEBRAL ARTERIES: Antegrade flow. Normal waveforms. SUBCLAVIAN ARTERIES: No finding. OTHER: No other significant finding. IMPRESSION: HETEROGENOUS PLAQUE ON THE RIGHT SIDE. NO HEMODYNAMICALLY SIGNIFICANT STENOSIS. COMMENT: Quality ID #[id number]: Velocity criteria are extrapolated from the diameter data as defined by t he Society of Radiologists in Ultrasound Consensus Conference. Radiology 2003: 229; 340-346. TECHNICAL DOCUMENTATION: JOB ID: [id number] [employer]- All Rights Reserved
[2017-09-14] MEDS: POTASSIUM CHLORIDE 20 MEQ/15 ML UDCUP PO SCH ×2 (17:37→22:53)
[2017-09-14] MEDS ORDERED: POTASSIUM CHLORIDE 10 MEQ TABLET.SA PO SCH (18:00)
--- NOTE | 2017-09-14 21:12 | PDOC PROGRESS REPORT ---
Subjective Progress Note for:: 09/14/17 Subjective:: Patient was admitted initially for observation, status post was transitioned to inpatient care today she continues to be unsteady in her gait, weak, fatigue, expressive dysphasia. She was seen by physical therapy the recommendation was for her undergo rehabilitation Reason For Visit: TIA VERSUS SEIZURE Physical Exam Vital Signs: Temp Pulse Resp BP Pulse Ox 99.4 F 64 16 114/56 L 100 09/14/17 16:47 09/14/17 16:47 09/14/17 16:47 09/14/17 16:47 09/14/17 16:47 Intake & Output 09/13/17 09/14/17 09/15/17 06:59 06:59 06:59 Intake Total 1494 200 950 Balance 1494 200 950 Weight 96.4 kg 97.7 kg General appearance: PRESENT: mild distress Head exam: PRESENT: atraumatic, normocephalic Eye exam: PRESENT: conjunctiva pink, EOMI, PERRLA Ear exam: PRESENT: normal external ear exam Mouth exam: PRESENT: moist, tongue midline Neck exam: PRESENT: full ROM Respiratory exam: PRESENT: clear to auscultation vanessa Cardiovascular exam: PRESENT: RRR, +S1, +S2 Pulses: PRESENT: normal dorsalis pedis pul, +2 pedal pulses bilateral Vascular exam: PRESENT: normal capillary refill GI/Abdominal exam: PRESENT: normal bowel sounds, soft Rectal exam: PRESENT: deferred Neurological exam: PRESENT: alert. ABSENT: motor sensory deficit Psychiatric exam: PRESENT: appropriate affect, normal mood. ABSENT: homicidal ideation, suicidal ideation Skin exam: PRESENT: dry, intact, warm. ABSENT: cyanosis, rash Results Laboratory Results: 09/14/17 06:35 09/14/17 06:35 09/14/17 09/14/17 06:35 06:35 WBC 12.4 H RBC 3.46 L Hgb 11.8 L Hct 34.4 L MCV 100 H MCH 34.1 H MCHC 34.3 RDW 11.9 Plt Count 184 Seg Neutrophils % 73.8 Lymphocytes % 10.4 L Monocytes % 15.0 H Eosinophils % 0.6 Basophils % 0.2 Absolute Neutrophils 9.1 H Absolute Lymphocytes 1.3 Absolute Monocytes 1.9 H Absolute Eosinophils 0.1 Absolute Basophils 0.0 Sodium 138.4 Potassium 3.2 L Chloride 100 Carbon Dioxide 30 Anion Gap 8 BUN 18 Creatinine 0.88 Est GFR ( Amer) > 60 Est GFR (Non-Af Amer) > 60 Glucose 98 Calcium 8.9 Total Bilirubin 0.9 AST 31 ALT 29 Alkaline Phosphatase 64 Total Protein 6.1 L Albumin 2.9 L 09/11/17 09/12/17 09/12/17 17:45 00:19 06:14 Troponin I < 0.012 < 0.012 < 0.012 Impressions: Chest X-Ray 09/10/17 00:00 IMPRESSION: NO ACUTE RADIOGRAPHIC FINDING IN THE CHEST. Head CT 09/10/17 00:00 IMPRESSION: Limited study. No gross acute findings. 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 Head MRI 09/10/17 12:14 IMPRESSION: Extremely limited study. No acute infarct identified EVIDENCE OF ACUTE STROKE: NO. Carotid Doppler Study 09/14/17 00:00 IMPRESSION: HETEROGENOUS PLAQUE ON THE RIGHT SIDE. NO HEMODYNAMICALLY SIGNIFICANT STENOSIS. Assessment & Plan - Diagnosis (1) Expressive aphasia Is this a current diagnosis for this admission?: Yes (2) Epilepsy Qualifiers: Epilepsy type: unspecified Intractability: not intractable Status epilepticus: without status epilepticus Qualified Code(s): G40.909 - Epilepsy , unspecified, not intractable, without status epilepticus Is this a current diagnosis for this admission?: Yes (3) Vascular dementia Qualifiers: Dementia behavioral disturbance: without behavioral disturbance Qualified Code(s): F01.50 - Vascular dementia without behavioral disturbance Is this a current diagnosis for this admission?: Yes (4) Hypokalemia Is this a current diagnosis for this admission?: Yes
[2017-09-14] MEDS: DONEPEZIL HCL 5 MG TABLET PO SCH (22:52)
[2017-09-14] MEDS: Memantine Hcl [Namenda Xr] 28 MG PO SCH (22:53)
[2017-09-14] MEDS: ATORVASTATIN CALCIUM 40 MG TABLET PO SCH (22:53)
[2017-09-14] MEDS: LATANOPROST 0.005% OPH SOLN 2.5 ML OU SCH (22:55)
[2017-09-15] MEDS ORDERED: LORAZEPAM 0.5 MG TABLET ONE (00:54)
[2017-09-15] MEDS ORDERED: LORAZEPAM 0.5 MG TABLET PO PRN (00:55)
[2017-09-15] MEDS: POTASSIUM CHLORIDE 20 MEQ/15 ML UDCUP PO SCH ×2 (01:12→10:18)
[2017-09-15] MEDS ORDERED: POTASSIUM CHLORIDE 10 MEQ TABLET.SA PO SCH (10:00)
[2017-09-15] MEDS: Vortioxetine Hydrobromide [Trintellix] 5 MG PO SCH ×2 (10:15→17:50)
[2017-09-15] MEDS: BUSPIRONE HCL 10 MG TABLET PO SCH ×2 (10:15→21:43)
[2017-09-15] MEDS: VALSARTAN 160 MG TABLET PO SCH (10:15)
[2017-09-15] MEDS: FEXOFENADINE 180 MG PO SCH (10:15)
[2017-09-15] MEDS: ASCORBIC ACID 500 MG TABLET PO SCH (10:15)
[2017-09-15] MEDS: CHOLECALCIFEROL (D3) 400 UNIT TABLET PO SCH (10:15)
[2017-09-15] MEDS: AMLODIPINE BESYLATE 5 MG TABLET PO SCH (10:15)
[2017-09-15] MEDS: CYANOCOBALAMIN (VITAMIN B-12) 1,000 MCG TABLET PO SCH (10:16)
[2017-09-15] MEDS: ASPIRIN/DIPYRIDAMOLE 25-200 MG 1 CAP.SR CPMP.12HR PO SCH ×2 (10:16→21:43)
[2017-09-15] MEDS: METOPROLOL SUCCINATE 50 MG TAB.SR.24H PO SCH (10:17)
[2017-09-15] MEDS: LEVETIRACETAM 500 MG TABLET PO SCH ×2 (10:17→21:44)
[2017-09-15] MEDS: NASONEX NASAL SPRAY NASL SCH (10:18)
--- NOTE | 2017-09-15 17:47 | PDOC PROGRESS REPORT ---
Subjective Progress Note for:: 09/15/17 Subjective:: There is no new complaint today Reason For Visit: TIA VERSUS SEIZURE Physical Exam Vital Signs: Temp Pulse Resp BP Pulse Ox 99.1 F 66 16 115/50 L 99 09/15/17 12:53 09/15/17 14:00 09/15/17 12:53 09/15/17 12:53 09/15/17 12:53 General appearance: PRESENT: no acute distress Eye exam: PRESENT: PERRLA Respiratory exam: PRESENT: clear to auscultation vanessa Cardiovascular exam: PRESENT: +S1, +S2 GI/Abdominal exam: PRESENT: soft Neurological exam: PRESENT: alert Results Impressions: Chest X-Ray 09/10/17 00:00 IMPRESSION: NO ACUTE RADIOGRAPHIC FINDING IN THE CHEST. Head CT 09/10/17 00:00 IMPRESSION: Limited study. No gross acute findings. 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 Head MRI 09/10/17 12:14 IMPRESSION: Extremely limited study. No acute infarct identified EVIDENCE OF ACUTE STROKE: NO. Carotid Doppler Study 09/14/17 00:00 IMPRESSION: HETEROGENOUS PLAQUE ON THE RIGHT SIDE. NO HEMODYNAMICALLY SIGNIFICANT STENOSIS. Assessment & Plan - Diagnosis (1) Expressive aphasia Is this a current diagnosis for this admission?: Yes (2) Epilepsy Qualifiers: Epilepsy type: unspecified Intractability: not intractable Status epilepticus: without status epilepticus Qualified Code(s): G40.909 - Epilepsy , unspecified, not intractable, without status epilepticus Is this a current diagnosis for this admission?: Yes (3) Vascular dementia Qualifiers: Dementia behavioral disturbance: without behavioral disturbance Qualified Code(s): F01.50 - Vascular dementia without behavioral disturbance Is this a current diagnosis for this admission?: Yes (4) Hypokalemia Is this a current diagnosis for this admission?: Yes
[2017-09-15 18:15] LABS: ABSOLUTE EOSINOPHILS # (AUTO) 0.1 10^3/uL (0.0-0.6); ABSOLUTE MONOCYTES (AUTO) 1.5 10^3/uL (0.1-1.4); ABSOLUTE NEUT (AUTO) 4.9 10^3/uL (1.7-8.2); BASOPHILS % (AUTO) 0.4 % (0-2); EOSINOPHILS % (AUTO) 1.7 % (0-6); HEMATOCRIT 34.4 % (36.0-47.0); HEMOGLOBIN 11.6 g/dL (12.0-15.5); LYMPHOCYTES % (AUTO) 13.4 % (13-45); MEAN CORPUSCULAR HEMOGLOBIN 33.9 pg (27.0-33.4); MEAN CORPUSCULAR HGB CONC 33.8 g/dL (32.0-36.0); MEAN CORPUSCULAR VOLUME 100 fl (80-97); MONOCYTES % (AUTO) 19.9 % (3-13); PLATELET COUNT 206 10^3/uL (150-450); RED BLOOD COUNT 3.42 10^6/uL (3.72-5.28); RED CELL DISTRIBUTION WIDTH 12.1 % (11.5-14.0); SEGMENTED NEUTROPHILS % (AUTO) 64.6 % (42-78); TOTAL CELLS COUNTED % (AUTO) 100 %; WHITE BLOOD COUNT 7.6 10^3/uL (4.0-10.5)
[2017-09-15 18:33] LABS: ALANINE AMINOTRANSFERASE 62 U/L (9-52); ALBUMIN 2.9 g/dL (3.5-5.0); ALKALINE PHOSPHATASE 70 U/L (38-126); ANION GAP 5 (5-19); ASPARTATE AMINO TRANSFERASE 83 U/L (14-36); BILIRUBIN,DIRECT 0.4 mg/dL (0.0-0.4); BILIRUBIN,TOTAL 0.5 mg/dL (0.2-1.3); BLOOD UREA NITROGEN 17 mg/dL (7-20); CALCIUM 9.2 mg/dL (8.4-10.2); CARBON DIOXIDE 29 mmol/L (22-30); CHLORIDE 104 mmol/L (98-107); GLUCOSE 95 mg/dL (75-110); POTASSIUM 4.3 mmol/L (3.6-5.0); SODIUM 138.2 mmol/L (137-145); TOTAL PROTEIN 6.1 g/dL (6.3-8.2)
[2017-09-15] MEDS: DONEPEZIL HCL 5 MG TABLET PO SCH (21:41)
[2017-09-15] MEDS: Memantine Hcl [Namenda Xr] 28 MG PO SCH (21:41)
[2017-09-15] MEDS: ATORVASTATIN CALCIUM 40 MG TABLET PO SCH (21:45)
[2017-09-15] MEDS: LATANOPROST 0.005% OPH SOLN 2.5 ML OU SCH (21:45)
[2017-09-16] MEDS: ASCORBIC ACID 500 MG TABLET PO SCH (10:49)
[2017-09-16] MEDS: AMLODIPINE BESYLATE 5 MG TABLET PO SCH (10:49)
[2017-09-16] MEDS: BUSPIRONE HCL 10 MG TABLET PO SCH ×2 (10:49→22:08)
[2017-09-16] MEDS: VALSARTAN 160 MG TABLET PO SCH (10:49)
[2017-09-16] MEDS: LEVETIRACETAM 500 MG TABLET PO SCH ×2 (10:49→22:08)
[2017-09-16] MEDS: CYANOCOBALAMIN (VITAMIN B-12) 1,000 MCG TABLET PO SCH (10:49)
[2017-09-16] MEDS: ASPIRIN/DIPYRIDAMOLE 25-200 MG 1 CAP.SR CPMP.12HR PO SCH ×2 (10:49→22:08)
[2017-09-16] MEDS: METOPROLOL SUCCINATE 50 MG TAB.SR.24H PO SCH (10:49)
[2017-09-16] MEDS: POTASSIUM CHLORIDE 20 MEQ/15 ML UDCUP PO SCH (10:50)
[2017-09-16] MEDS: Vortioxetine Hydrobromide [Trintellix] 5 MG PO SCH ×2 (11:16→18:02)
[2017-09-16] MEDS: CHOLECALCIFEROL (D3) 400 UNIT TABLET PO SCH (11:16)
[2017-09-16] MEDS: NASONEX NASAL SPRAY NASL SCH (11:16)
[2017-09-16] MEDS: FEXOFENADINE 180 MG PO SCH (11:16)
--- NOTE | 2017-09-16 20:25 | PDOC TRANSFER SUMMARY ---
General - Admit/Disc Date/PCP Admission Date/Primary Care Provider: 09/14/17 10:16 MARI ANDERSON MD Discharge Date: 09/24/17 - Discharge Diagnosis (1) Expressive aphasia Is this a current diagnosis for this admission?: Yes (2) Epilepsy Is this a current diagnosis for this admission?: Yes (3) Vascular dementia Is this a current diagnosis for this admission?: Yes (4) Hypokalemia Is this a current diagnosis for this admission?: Yes (5) Chronic sinusitis Is this a current diagnosis for this admission?: Yes (6) Personal history of cerebrovascular accident with residual effects Is this a current diagnosis for this admission?: Yes (7) Essential (primary) hypertension Is this a current diagnosis for this admission?: Yes - Additional Information Discharge Diet: Regular Home Medications: Amlodipine Besylate/Valsartan [Amlodipine-Valsartan 5-320 mg] 1 each PO DAILY Ascorbic Acid [Vitamin C 500 mg Tablet] 500 mg PO DAILY 09/10/17 Aspirin/Dipyridamole [Aggrenox 25 mg-200 mg Capsule] 1 each PO BID 09/10/17 Buspirone HCl 15 mg PO BID 09/10/17 Cholecalciferol (Vitamin D3) [Vitamin D3] 400 unit PO DAILY 09/10/17 Cyanocobalamin (Vitamin B-12) [Vitamin B-12] 500 mcg PO DAILY 09/10/17 Donepezil HCl 10 mg PO QHS 09/10/17 Fexofenadine HCl [Tressa Allergy] 180 mg PO DAILY 09/10/17 Latanoprost [Xalatan 0.005% Oph Soln 2.5 ml] 1 drop OU QHS 09/10/17 Levetiracetam 1,000 mg PO Q12 09/10/17 Memantine HCl [Namenda Xr] 28 mg PO DAILY 09/10/17 Metoprolol Succinate 100 mg PO DAILY 09/10/17 Mometasone Furoate [Nasonex] 1 spray NASL DAILY 09/10/17 Potassium Chloride 10 meq PO DAILY 09/10/17 Rosuvastatin Calcium [Crestor 20 mg Tablet] 20 mg PO QHS 09/10/17 Vortioxetine Hydrobromide [Trintellix] 5 mg PO BID 09/10/17 Zinc Sulfate [Zinc-220 Capsule] 220 mg PO SUTUTHSA 09/10/17 History of Present Illness Admission Date/PCP: 09/14/17 10:16 MARI ANDERSON MD History of Present Illness: CLAUDIA DUMONT is a 77 year old female, she has a history of CVA, vascular dementia she was in the emergency room on 09/09/1903/21/2018 for evaluation of, panic attack according to the ER family stated that record patient has episode of panic attack roughly about every 2 months when she gets extremely anxious with twitching refused to talk the emergency room she was appropriately evaluated, CT head was done without contrast showed old infarct in the mid edgar , left frontoparietal cortex there was no hydrocephalus. I discussed this case with the ED physician last night and the consensus was that she should be discharged home to follow with me in the office the following morning. She came to the office with the ambulance. She was evaluated in the office she was aphasic, she would not answer questions, she was having involuntary contractions of the facial musculature and also upper extremity muscles almost like clonus. MRI of the brain was done, it was a poor study because of extreme motion artifact there is no acute infarct identified the blood work showed hypokalemia Hospital Course Hospital Course: Patient was admitted for evaluation of expressive dysphasia, gait abnormality there is a concern that she may have a stroke, she has history of stroke MRI brain was done it was negative for acute CVA. There was a concern she may have a seizure EEG was done it was negative for seizure activity. She also had hypokalemia this was corrected. She was seen by physical therapy, rehabilitation in the longterm was recommended Physical Exam Vital Signs: Temp Pulse Resp BP Pulse Ox 97.6 F 59 L 16 123/55 L 100 09/16/17 19:47 09/16/17 19:47 09/16/17 19:47 09/16/17 19:47 09/16/17 19:47 Intake & Output 09/15/17 09/16/17 09/17/17 06:59 06:59 06:59 Intake Total 1310 537 387 Balance 1310 537 387 Weight 98.6 kg 98.5 kg General appearance: PRESENT: no acute distress Eye exam: PRESENT: PERRLA Respiratory exam: PRESENT: clear to auscultation vanessa Cardiovascular exam: PRESENT: +S1, +S2 GI/Abdominal exam: PRESENT: soft Neurological exam: PRESENT: alert Results Laboratory Results: 09/15/17 18:05 09/15/17 18:05 Impressions: Chest X-Ray 09/10/17 00:00 IMPRESSION: NO ACUTE RADIOGRAPHIC FINDING IN THE CHEST. Head CT 09/10/17 00:00 IMPRESSION: Limited study. No gross acute findings. 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 Head MRI 09/10/17 12:14 IMPRESSION: Extremely limited study. No acute infarct identified EVIDENCE OF ACUTE STROKE: NO. Carotid Doppler Study 09/14/17 00:00 IMPRESSION: HETEROGENOUS PLAQUE ON THE RIGHT SIDE. NO HEMODYNAMICALLY SIGNIFICANT STENOSIS.
--- NOTE | 2017-09-16 20:27 | PDOC PROGRESS REPORT ---
Subjective Progress Note for:: 09/16/17 Subjective:: She was seen by the bedside, there is no new complaints Reason For Visit: TIA VERSUS SEIZURE Physical Exam Vital Signs: Temp Pulse Resp BP Pulse Ox 97.6 F 59 L 16 123/55 L 100 09/16/17 19:47 09/16/17 19:47 09/16/17 19:47 09/16/17 19:47 09/16/17 19:47 Intake & Output 09/15/17 09/16/17 09/17/17 06:59 06:59 06:59 Intake Total 1310 537 387 Balance 1310 537 387 Weight 98.6 kg 98.5 kg General appearance: PRESENT: no acute distress Eye exam: PRESENT: PERRLA Respiratory exam: PRESENT: clear to auscultation vanessa Cardiovascular exam: PRESENT: +S1, +S2 GI/Abdominal exam: PRESENT: soft Neurological exam: PRESENT: alert Results Laboratory Results: 09/15/17 18:05 09/15/17 18:05 Impressions: Chest X-Ray 09/10/17 00:00 IMPRESSION: NO ACUTE RADIOGRAPHIC FINDING IN THE CHEST. Head CT 09/10/17 00:00 IMPRESSION: Limited study. No gross acute findings. 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 Head MRI 09/10/17 12:14 IMPRESSION: Extremely limited study. No acute infarct identified EVIDENCE OF ACUTE STROKE: NO. Carotid Doppler Study 09/14/17 00:00 IMPRESSION: HETEROGENOUS PLAQUE ON THE RIGHT SIDE. NO HEMODYNAMICALLY SIGNIFICANT STENOSIS. Assessment & Plan - Diagnosis (1) Expressive aphasia Is this a current diagnosis for this admission?: Yes (2) Epilepsy Qualifiers: Epilepsy type: unspecified Intractability: not intractable Status epilepticus: without status epilepticus Qualified Code(s): G40.909 - Epilepsy , unspecified, not intractable, without status epilepticus Is this a current diagnosis for this admission?: Yes (3) Vascular dementia Qualifiers: Dementia behavioral disturbance: without behavioral disturbance Qualified Code(s): F01.50 - Vascular dementia without behavioral disturbance Is this a current diagnosis for this admission?: Yes (4) Hypokalemia Is this a current diagnosis for this admission?: Yes (5) Chronic sinusitis Is this a current diagnosis for this admission?: Yes (6) Personal history of cerebrovascular accident with residual effects Is this a current diagnosis for this admission?: Yes (7) Essential (primary) hypertension Is this a current diagnosis for this admission?: Yes
[2017-09-16] MEDS: ATORVASTATIN CALCIUM 40 MG TABLET PO SCH (22:07)
[2017-09-16] MEDS: Memantine Hcl [Namenda Xr] 28 MG PO SCH (22:08)
[2017-09-16] MEDS: DONEPEZIL HCL 5 MG TABLET PO SCH (22:08)
[2017-09-16] MEDS: LATANOPROST 0.005% OPH SOLN 2.5 ML OU SCH (22:09)
[2017-09-17 08:05] VITALS: BP 143/59
[2017-09-17] MEDS: Vortioxetine Hydrobromide [Trintellix] 5 MG PO SCH (12:16)
[2017-09-17] MEDS: FEXOFENADINE 180 MG PO SCH (12:17)
[2017-09-17] MEDS: NASONEX NASAL SPRAY NASL SCH (12:18)
[2017-09-17] MEDS: METOPROLOL SUCCINATE 50 MG TAB.SR.24H PO SCH (12:19)
[2017-09-17] MEDS: LEVETIRACETAM 500 MG TABLET PO SCH (12:20)
[2017-09-17] MEDS: ASCORBIC ACID 500 MG TABLET PO SCH (12:21)
[2017-09-17] MEDS: VALSARTAN 160 MG TABLET PO SCH (12:21)
[2017-09-17] MEDS: AMLODIPINE BESYLATE 5 MG TABLET PO SCH (12:21)
[2017-09-17] MEDS: CHOLECALCIFEROL (D3) 400 UNIT TABLET PO SCH (12:22)
[2017-09-17] MEDS: BUSPIRONE HCL 10 MG TABLET PO SCH (12:22)
[2017-09-17] MEDS: ASPIRIN/DIPYRIDAMOLE 25-200 MG 1 CAP.SR CPMP.12HR PO SCH (12:22)
[2017-09-17] MEDS: CYANOCOBALAMIN (VITAMIN B-12) 1,000 MCG TABLET PO SCH (12:24)
[2017-09-17] MEDS: POTASSIUM CHLORIDE 20 MEQ/15 ML UDCUP PO SCH (12:24)
== END 2017-09-17 13:00 | DRG 93 ==
LOC: ER 11:42 → UNDOADMOB 11:54 → INTOOBSV 11:54 → EH 11:54 → 3N 09-11 00:05 → EH 09-11 00:05 → OBSVTOIN 09-14 10:16 → INTOOBSV 09-15 10:16 → OBSVTOIN 09-15 10:16
PROVIDERS: ADMIT Internal Medicine; ATTEND Internal Medicine
DX: R47.01 Aphasia (principal); G40.909 Epilepsy, unspecified, not intractable, without status epilepticus; E87.6 Hypokalemia; R26.9 Unspecified abnormalities of gait and mobility; F01.50 Vascular dementia, unspecified severity, without behavioral disturbance, psychotic disturbance, mood disturbance, and anxiety; J32.9 Chronic sinusitis, unspecified; D64.9 Anemia, unspecified; I10 Essential (primary) hypertension; E78.5 Hyperlipidemia, unspecified; K21.9 Gastro-esophageal reflux disease without esophagitis; Z87.891 Personal history of nicotine dependence; Z86.73 Personal history of transient ischemic attack (TIA), and cerebral infarction without residual deficits; Z79.899 Other long term (current) drug therapy
CPT/HCPCS: 36415; 70450; 70551; 71045; 80048; 80053; 80076; 81001; 83735; 84484; 85025; 85027; 87040; 87077; 87186; 93005; 93010; 93306; 93880; 95819; G0378; G8978-GP; G8979-GP; G8987-GO; G8988-GO; J2060; J3480; J3490

== ENCOUNTER → 2018-08-30 | Outpatient (CLI) | payer MEDICARE, MEDICAID ==
--- NOTE | 2018-08-30 14:44 | RADIOLOGY REPORT (SQ) ---
EXAM DESCRIPTION: U/S RETROPERITON (RENAL/AORTA) COMPLETED DATE/TIME: 08/30/2018 2:30 pm REASON FOR STUDY: R94.4 ABNORMAL RESULTS OF KIDNEY FUNCTION STUDIES R94.4 ABNORMAL RESULTS OF KIDNE Y FUNCTION STUDIES COMPARISON: None. TECHNIQUE: Dynamic and static grayscale images acquired of the kidneys and bladder and recorded on P ACS. Additional selected color Doppler and spectral images recorded. LIMITATIONS: None. FINDINGS: RIGHT KIDNEY: The right kidney measures 9.5 cm in length, normal size. Normal echogenici ty. A 1.2 x 1.0 x 1.1 cm cyst in the lower pole of the kidney, findings correlate to the CT examinat ion dated 11/02/2013. No hydronephrosis. No calcifications. LEFT KIDNEY: The left kidney measures 9.6 cm in length, normal size. Normal echogenicity. No solid o r suspicious masses. No hydronephrosis. No calcifications. BLADDER: No masses. Prevoid volume 99.5 cc. OTHER FINDINGS: No other significant finding. IMPRESSION: 1. No evidence of hydronephrosis involving either kidney. 2. Small right renal cyst. This finding likely correlates to the CT examination dated 11/02/2013. TECHNICAL DOCUMENTATION: JOB ID: [id number] [employer]- All Rights Reserved Reading location - IP/workstation name: [email or web address]
== END ==
LOC: RAD 13:56
PROVIDERS: ATTEND Internal Medicine
DX: R94.4 Abnormal results of kidney function studies (principal)
CPT/HCPCS: 76770

== ENCOUNTER 2018-10-22 05:46 | Inpatient (IN) | payer MEDICARE, MEDICAID ==
[2018-10-22] MEDS ORDERED: ACETAMINOPHEN 325 MG TABLET PO ONE (05:54)
[2018-10-22 06:30] LABS: ABSOLUTE LYMPHOCYTES (AUTO) 0.6 10^3/uL (0.5-4.7); ABSOLUTE MONOCYTES (AUTO) 0.8 10^3/uL (0.1-1.4); ABSOLUTE NEUT (AUTO) 7.8 10^3/uL (1.7-8.2); BASOPHILS % (AUTO) 0.3 % (0-2); HEMATOCRIT 30.6 % (36.0-47.0); HEMOGLOBIN 10.6 g/dL (12.0-15.5); LYMPHOCYTES % (AUTO) 6.2 % (13-45); MEAN CORPUSCULAR HEMOGLOBIN 33.8 pg (27.0-33.4); MEAN CORPUSCULAR HGB CONC 34.7 g/dL (32.0-36.0); MEAN CORPUSCULAR VOLUME 97 fl (80-97); MONOCYTES % (AUTO) 8.8 % (3-13); PLATELET COUNT 204 10^3/uL (150-450); RED BLOOD COUNT 3.15 10^6/uL (3.72-5.28); RED CELL DISTRIBUTION WIDTH 12.3 % (11.5-14.0); SEGMENTED NEUTROPHILS % (AUTO) 84.7 % (42-78); TOTAL CELLS COUNTED % (AUTO) 100 %; WHITE BLOOD COUNT 9.2 10^3/uL (4.0-10.5)
[2018-10-22 06:36] LABS: INTERNATIONAL RATION (INR) 1.11; PROTHROMBIN TIME 14.9 SEC (11.4-15.4)
--- NOTE | 2018-10-22 06:38 | ER Document Report ---
ED General - General Stated Complaint: GENERAL SICKNESS Time Seen by Provider: 10/22/18 06:08 Primary Care Provider: MARI ANDERSON MD [Primary Care Provider] - Follow up as needed TRAVEL OUTSIDE OF THE [place] IN LAST 30 DAYS: No - HPI Notes: Patient is a 78-year-old female with vascular dementia that presents to the emergency department for chief complaint of fever. Patient lives at home with family. Family noticed that she was having more frequent panic attacks last night. They states she gets anxious very often. Patient did appear anxious last night and was tremulous. The family then noted that her skin felt very warm to touch. After checking a temperature she was 101.5, this prompted them to call EMS to transport her to the hospital. They deny any other symptoms and states she appeared normal yesterday. She does get urinary tract infections occasionally. Family denies any cough or congestion. Patient has been eating and drinking normally. Past Medical History: Vascular dementia, stroke, anxiety, hypertension Past Surgical History: Tubal ligation Social History: Former smoker. Denies alcohol Family History: Reviewed and noncontributory for presenting illness Allergies: Reviewed, see documented allergy list. REVIEW OF SYSTEMS: CONSTITUTIONAL : fever No chills No diaphoresis No recent illness EENT: No vision changes No congestion No sore throat CARDIOVASCULAR: No chest pain No palpitations RESPIRATORY: No shortness of breath No cough No difficulty breathing GASTROINTESTINAL: No abdominal pain No nausea No vomiting No diarrhea GENITOURINARY: No dysuria No hematuria No difficulty urinating MUSCULOSKELETAL: No back pain No leg pain No arm pain SKIN: No rashes No lesions LYMPHATIC: No swollen, enlarged glands. NEUROLOGICAL: No lightheadedness No headache No weakness No paresthesias PSYCHIATRIC: anxiety No depression PHYSICAL EXAMINATION: Vital signs reviewed, nursing noted reviewed. GENERAL: Well-appearing, well-nourished and in no acute distress. HEAD: Atraumatic, normocephalic. EYES: Eyes appear normal, extraocular movements intact, sclera anicteric, conjunctiva are normal. ENT: nares patent, oropharynx clear without exudates. Moist mucous membranes. NECK: Normal range of motion, supple without lymphadenopathy LUNGS: Breath sounds clear to auscultation bilaterally and equal. No wheezes rales or rhonchi. HEART: Regular rate and rhythm without murmurs ABDOMEN: Soft, nontender, normoactive bowel sounds. No rebound, guarding, or rigidity. No masses appreciated. EXTREMITIES: Nontender, good range of motion, trace pretibial edema NEUROLOGICAL: Oriented to person and place. No focal neurological deficits. Moves all extremities spontaneously Motor and sensory grossly intact on exam. PSYCH: Normal mood, normal affect. SKIN: Warm, Dry, normal turgor, no rashes or lesions noted on exposed skin - Related Data Allergies/Adverse Reactions: shellfish derived Allergy (Verified 10/22/18 07:10) Past Medical History - Social History Smoking Status: Former Smoker Family History: Reviewed & Not Pertinent Patient has suicidal ideation: No Patient has homicidal ideation: No - Past Medical History Cardiac Medical History: Reports: Hx Hypercholesterolemia, Hx Hypertension Pulmonary Medical History: Denies: Hx Tuberculosis Neurological Medical History: Reports: Hx Cerebrovascular Accident, Hx Seizures Renal/ Medical History: Denies: Hx Peritoneal Dialysis GI Medical History: Reports: Hx Gastroesophageal Reflux Disease Musculoskeletal Medical History: Reports Hx Arthritis, Reports Hx Gout Psychiatric Medical History: Reports: Hx Anxiety, Hx Dementia Denies: Hx Depression Past Surgical History: Reports: Hx Abdominal Surgery - hernia repair, Hx Herniorrhaphy, Hx Tubal Ligation - Immunizations Hx Diphtheria, Pertussis, Tetanus Vaccination: Yes Hx Pneumococcal Vaccination: 08/02/13 Physical Exam - Vital signs Vitals: Pulse Ox 98 10/22/18 05:51 Course - Re-evaluation Re-evalutation: 10/22/18 06:37 Vitals reviewed. Nursing notes reviewed. Patient received Tylenol for fever. She is resting comfortably and in no acute distress. Currently patient has no complaints. 10/22/18 08:06 Patient's lab work shows dehydration with acute kidney injury. She also has a lactic acidosis and is meeting sepsis criteria. Patient did receive Rocephin for acute urinary tract infection. She has received IV fluids. Patient's troponin is also indeterminate at 0.049. She has not had any complaint of chest pain or dyspnea and the elevated troponin is likely related to her acute renal insufficiency however she was given a dose of aspirin until further trending of her troponins can be obtained. Patient will be admitted to the hospital for further care. Her case was discussed with Dr. Anderson who accepted admission. Patient and family in agreement, she is stable at admission. Laboratory 10/22/18 10/22/18 10/22/18 06:07 06:07 06:07 WBC 9.2 RBC 3.15 L Hgb 10.6 L Hct 30.6 L MCV 97 MCH 33.8 H MCHC 34.7 RDW 12.3 Plt Count 204 Seg Neutrophils % 84.7 H Lymphocytes % 6.2 L Monocytes % 8.8 Eosinophils % 0.0 Basophils % 0.3 Absolute Neutrophils 7.8 Absolute Lymphocytes 0.6 Absolute Monocytes 0.8 Absolute Eosinophils 0.0 Absolute Basophils 0.0 PT 14.9 INR 1.11 VBG pH VBG pCO2 VBG HCO3 VBG Base Excess Sodium 133.8 L Potassium 3.7 Chloride 95 L Carbon Dioxide 28 Anion Gap 11 BUN 23 H Creatinine 1.43 H Est GFR ( Amer) 43 L Est GFR (Non-Af Amer) 35 L Glucose 132 H Lactic Acid Calcium 9.2 Total Bilirubin 0.4 Direct Bilirubin 0.2 Neonat Total Bilirubin Not Reportable Neonat Direct Bilirubin Not Reportable Neonat Indirect Bili Not Reportable AST 32 ALT 10 Alkaline Phosphatase 68 Troponin I Total Protein 7.6 Albumin 3.8 Urine Color Urine Appearance Urine pH Ur Specific [place] Urine Protein Urine Glucose (UA) Urine Ketones Urine Blood Urine Nitrite Urine Bilirubin Urine Urobilinogen Ur Leukocyte Esterase Urine WBC (Auto) Urine RBC (Auto) Urine Bacteria (Auto) Urine Mucus (Auto) Urine Ascorbic Acid 10/22/18 10/22/18 10/22/18 06:07 06:48 07:00 WBC RBC Hgb Hct MCV MCH MCHC RDW Plt Count Seg Neutrophils % Lymphocytes % Monocytes % Eosinophils % Basophils % Absolute Neutrophils Absolute Lymphocytes Absolute Monocytes Absolute Eosinophils Absolute Basophils PT INR VBG pH VBG pCO2 VBG HCO3 VBG Base Excess Sodium Potassium Chloride Carbon Dioxide Anion Gap BUN Creatinine Est GFR ( Amer) Est GFR (Non-Af Amer) Glucose Lactic Acid 2.2 H Calcium Total Bilirubin Direct Bilirubin Neonat Total Bilirubin Neonat Direct Bilirubin Neonat Indirect Bili AST ALT Alkaline Phosphatase Troponin I 0.049 Total Protein Albumin Urine Color YELLOW Urine Appearance SLIGHTLY-CLOUDY Urine pH 6.0 Ur Specific [place] 1.013 Urine Protein NEGATIVE Urine Glucose (UA) NEGATIVE Urine Ketones NEGATIVE Urine Blood LARGE H Urine Nitrite NEGATIVE Urine Bilirubin NEGATIVE Urine Urobilinogen NEGATIVE Ur Leukocyte Esterase MODERATE H Urine WBC (Auto) 21 Urine RBC (Auto) 48 Urine Bacteria (Auto) 3+ Urine Mucus (Auto) RARE Urine Ascorbic Acid 40 H 10/22/18 07:40 WBC RBC Hgb Hct MCV MCH MCHC RDW Plt Count Seg Neutrophils % Lymphocytes % Monocytes % Eosinophils % Basophils % Absolute Neutrophils Absolute Lymphocytes Absolute Monocytes Absolute Eosinophils Absolute Basophils PT INR VBG pH 7.38 VBG pCO2 49.6 VBG HCO3 28.9 VBG Base Excess 2.9 Sodium Potassium Chloride Carbon Dioxide Anion Gap BUN Creatinine Est GFR ( Amer) Est GFR (Non-Af Amer) Glucose Lactic Acid Calcium Total Bilirubin Direct Bilirubin Neonat Total Bilirubin Neonat Direct Bilirubin Neonat Indirect Bili AST ALT Alkaline Phosphatase Troponin I Total Protein Albumin Urine Color Urine Appearance Urine pH Ur Specific [place] Urine Protein Urine Glucose (UA) Urine Ketones Urine Blood Urine Nitrite Urine Bilirubin Urine Urobilinogen Ur Leukocyte Esterase Urine WBC (Auto) Urine RBC (Auto) Urine Bacteria (Auto) Urine Mucus (Auto) Urine Ascorbic Acid Chest X-Ray 10/22/18 05:55 IMPRESSION: No acute cardiopulmonary process copyright 2011 [employer]- All Rights Reserved - Vital Signs Vital signs: Temp Pulse Resp BP Pulse Ox 99.4 F 15 123/61 98 10/22/18 06:21 10/22/18 07:01 10/22/18 07:01 10/22/18 07:01 - Laboratory Result Diagrams: 10/22/18 06:07 10/22/18 06:07 Laboratory results interpreted by me: 10/22/18 10/22/18 10/22/18 06:07 06:07 06:48 RBC 3.15 L Hgb 10.6 L Hct 30.6 L MCH 33.8 H Seg Neutrophils % 84.7 H Lymphocytes % 6.2 L Sodium 133.8 L Chloride 95 L BUN 23 H Creatinine 1.43 H Est GFR ( Amer) 43 L Est GFR (Non-Af Amer) 35 L Glucose 132 H Lactic Acid 2.2 H Urine Blood Ur Leukocyte Esterase Urine Ascorbic Acid 10/22/18 07:00 RBC Hgb Hct MCH Seg Neutrophils % Lymphocytes % Sodium Chloride BUN Creatinine Est GFR ( Amer) Est GFR (Non-Af Amer) Glucose Lactic Acid Urine Blood LARGE H Ur Leukocyte Esterase MODERATE H Urine Ascorbic Acid 40 H - EKG Interpretation by Me Additional EKG results interpreted by me: 10/22/18 06:37 Interpreted by myself [id number]: Normal sinus rhythm, rate 64, normal axis, no ectopy, no ST elevation, diffuse T wave flattening Discharge - Discharge Clinical Impression: Severe sepsis, Acute kidney injury, Acute urinary tract infection, Elevated troponin Condition: Stable Disposition: ADMITTED INPATIENT Admitting Provider: Katarzyna Unit Admitted: Telemetry Referrals: MARI ANDERSON MD [Primary Care Provider] - Follow up as needed
--- NOTE | 2018-10-22 06:43 | RADIOLOGY REPORT (SQ) ---
EXAM DESCRIPTION: XR CHEST 1 VIEW COMPLETED DATE/TME: 10/22/2018 05:55 CLINICAL HISTORY: 78 years, Female, fever COMPARISON: 02/18/2015 chest NUMBER OF VIEWS: 1 TECHNIQUE: Portable chest LIMITATIONS: None. FINDINGS: Heart size is normal. Atheromatous change thoracic aorta. Lungs clear. No pneumothorax IMPRESSION: No acute cardiopulmonary process copyright 2010 [employer] ([employer]) [employer]- All Rights Reserved
[2018-10-22 06:45] LABS: ALANINE AMINOTRANSFERASE 10 U/L (9-52); ALBUMIN 3.8 g/dL (3.5-5.0); ALKALINE PHOSPHATASE 68 U/L (38-126); ANION GAP 11 (5-19); ASPARTATE AMINO TRANSFERASE 32 U/L (14-36); BILIRUBIN,DIRECT 0.2 mg/dL (0.0-0.4); BILIRUBIN,TOTAL 0.4 mg/dL (0.2-1.3); BLOOD UREA NITROGEN 23 mg/dL (7-20); CALCIUM 9.2 mg/dL (8.4-10.2); CARBON DIOXIDE 28 mmol/L (22-30); CHLORIDE 95 mmol/L (98-107); GLUCOSE 132 mg/dL (75-110); POTASSIUM 3.7 mmol/L (3.6-5.0); SODIUM 133.8 mmol/L (137-145); TOTAL PROTEIN 7.6 g/dL (6.3-8.2)
[2018-10-22] MEDS ORDERED: NORMAL SALINE 1000 ML 1,000 ML IV ONE ×2 (07:14→08:06)
[2018-10-22] MEDS ORDERED: ASPIRIN 81 MG TABLET, CHEWABLE PO ONE (07:14)
[2018-10-22 07:52] LABS: APPEARANCE,URINE SLIGHTLY-CLOUDY; BILIRUBIN,URINE NEGATIVE (NEGATIVE); COLOR,URINE YELLOW; GLUCOSE, URINE NEGATIVE (NEGATIVE); KETONES,URINE NEGATIVE (NEGATIVE); LEUKOCYTE ESTERASE,URINE MODERATE (NEGATIVE); NITRITE,URINE NEGATIVE (NEGATIVE); PROTEIN,URINE NEGATIVE (NEGATIVE); URINE SPECIFIC GRAVITY 1.013; UROBILINOGEN,URINE NEGATIVE mg/dL (<2.0)
[2018-10-22 07:58] LABS: VENOUS BLOOD BASE EXCESS 2.9 mmol/L; VENOUS BLOOD HCO3 28.9 mmol/L (20-32); VENOUS BLOOD PCO2 49.6 mmHg (35-63); VENOUS BLOOD PH 7.38 (7.30-7.42)
[2018-10-22] MEDS ORDERED: CEFTRIAXONE INJ 1000 MG VIAL IV ONE (08:03)
--- NOTE | 2018-10-22 12:35 | EKG REPORT ---
SEVERITY:- BORDERLINE ECG - SINUS RHYTHM BORDERLINE LEFT AXIS DEVIATION BORDERLINE T WAVE ABNORMALITIES : Confirmed by: Ryan Pinedo 22-Oct-2018 12:34:22
[2018-10-22] MEDS ORDERED: (PENDING PHARMACY ID) (Acetaminophen [Tylenol Extra Strength 500 Mg Tablet] 500 MG) PO PRN (13:22)
[2018-10-22] MEDS ORDERED: CLONAZEPAM 1 MG TABLET PO PRN (13:22)
[2018-10-22] MEDS ORDERED: MAGNESIUM HYDROXIDE SUSP 30 ML UDCUP PO PRN (13:22)
[2018-10-22] MEDS ORDERED: SIMETHICONE 180 MG PO PRN (13:22)
[2018-10-22] MEDS ORDERED: SIMETHICONE PO PRN (13:22)
[2018-10-22] MEDS ORDERED: LOPERAMIDE HCL PO PRN (13:22)
[2018-10-22] MEDS ORDERED: (PENDING PHARMACY ID) (Cyanocobalamin (Vitamin B-12) [Vitamin B-12 500 Mcg Tablet] 500 MCG PO SCH (13:30)
[2018-10-22] MEDS ORDERED: (PENDING PHARMACY ID) (Vortioxetine Hydrobromide [Trintellix] 10 MG) PO SCH (13:30)
[2018-10-22] MEDS ORDERED: HYDROCHLOROTHIAZIDE PO SCH (13:30)
[2018-10-22] MEDS ORDERED: (PENDING PHARMACY ID) (Levetiracetam [Keppra] 1,000 MG) PO SCH (13:30)
[2018-10-22] MEDS ORDERED: METOPROLOL PO SCH (13:30)
[2018-10-22] MEDS ORDERED: (PENDING PHARMACY ID) (Potassium Chloride [Klor-Con M10] 10 MEQ) PO SCH (13:30)
[2018-10-22] MEDS ORDERED: [UNRECOGNIZED DRUG - OTHER] PO SCH (13:30)
[2018-10-22 14:06] LABS: LIPASE 62.9 U/L (23-300); PHOSPHORUS 2.9 mg/dL (2.5-4.5)
[2018-10-22 14:24] LABS: FREE T4 (FREE THYROXINE) 0.97 ng/dL (0.78-2.19)
[2018-10-22] MEDS ORDERED: SIMETHICONE 80 MG TAB.CHEW PO PRN (14:32)
[2018-10-22] MEDS ORDERED: ACETAMINOPHEN 325 MG TABLET PO PRN (14:34)
[2018-10-22 14:38] LABS: THYROID STIMULATING HORMONE 1.09 uIU/mL (0.47-4.68)
[2018-10-22 14:44] LABS: INTERNATIONAL RATION (INR) 1.07; PROTHROMBIN TIME 14.5 SEC (11.4-15.4)
[2018-10-22 14:45] LABS: PARTIAL THROMBOPLASTIN TIME 29.4 SEC (23.5-35.8)
[2018-10-22] MEDS: NORMAL SALINE 1000 ML 1,000 ML IV PRN (15:37)
[2018-10-22] MEDS: ENOXAPARIN SODIUM INJ 40 MG/0.4 ML DISP.SYRIN SUBCUT SCH (15:37)
[2018-10-22] MEDS: METOPROLOL TARTRATE 100 MG TABLET PO SCH (15:38)
[2018-10-22] MEDS: LEVETIRACETAM 500 MG TABLET PO SCH ×2 (15:38→21:39)
[2018-10-22] MEDS: CYANOCOBALAMIN (VITAMIN B-12) 1,000 MCG TABLET PO SCH (15:38)
[2018-10-22] MEDS: CLOPIDOGREL BISULFATE 75 MG TABLET PO SCH (15:39)
[2018-10-22] MEDS: CHOLECALCIFEROL (D3) 400 UNIT TABLET PO SCH (15:39)
[2018-10-22] MEDS: POTASSIUM CHLORIDE 10 MEQ CAPSULE.ER PO SCH (15:39)
[2018-10-22] MEDS: ASCORBIC ACID 500 MG TABLET PO SCH (15:39)
[2018-10-22] MEDS: LORATADINE 10 MG TABLET PO SCH (15:39)
[2018-10-22] MEDS: FLUTICASONE NASAL SPRAY 50 MCG/SPRY 120 SPRAY/16 GM NASL SCH (16:06)
[2018-10-22] MEDS ORDERED: LORAZEPAM 1 MG TABLET ONE (16:51)
--- NOTE | 2018-10-22 17:41 | PDOC H&P ---
History of Present Illness Admission Date/PCP: 10/22/18 08:41 MARI ANDERSON MD History of Present Illness: CLAUDIA DUMONT is a 78 year old female She has a history of vascular dementia, CVA, she was brought to the emergency room for evaluation of fever with a temperature 102 there was associated chills there was no cough there was no apparent cause of the fever by the family so she was brought to the ER for evaluation. In the emergency room she was evaluated the dipstick urinalysis was grossly abnormal with positive leukocyte esterase, nitrite the urine microscopy demonstrated significant bacteriuria, pyuria suggesting that she has a UTI. The serum creatinine was 1.43 she has a history of background chronic kidney disease stage III with a baseline creatinine of 1.3 she also has lactic acidosis suggesting end organ injury, history taking was a challenge partly from danis keith and from the infection. Past Medical History Cardiac Medical History: Reports: Hyperlipidema, Hypertension Neurological Medical History: Reports: Seizures Renal/ Medical History: Reports: Chronic Kidney Disease, Other - Chronic kidney disease stage III GI Medical History: Reports: Gastroesophageal Reflux Disease Musculoskeltal Medical History: Reports: Arthritis, Gout Psychiatric Medical History: Reports: Dementia Hematology: Reports: Anemia Past Surgical History Past Surgical History: Reports: Herniorrhaphy, Tubal Ligation Social History Smoking Status: Former Smoker Last Time Smoked: 1990 Frequency of Alcohol Use: None Hx Recreational Drug Use: No Drugs: None Hx Prescription Drug Abuse: No Family History Family History: Reviewed & Not Pertinent Parental Family History Reviewed: Yes Children Family History Reviewed: Yes Sibling(s) Family History Reviewed.: Yes Medication/Allergy Home Medications: Acetaminophen [Tylenol Extra Strength 500 mg Tablet] 500 mg PO Q12HP PRN 10/22/18 Ascorbic Acid [Vitamin C 500 mg Tablet] 500 mg PO DAILY 10/22/18 Buspirone HCl [Buspar 15 mg Tablet] 15 mg PO Q12 10/22/18 Cholecalciferol (Vitamin D3) [Vitamin D3 400 Unit Tablet] 400 mg PO DAILY 10/22/18 Clonazepam [Klonopin 1 mg Tablet] 1 mg PO DAILYP PRN 10/22/18 Clopidogrel Bisulfate [Plavix 75 mg Tablet] 75 mg PO DAILY 10/22/18 Cyanocobalamin (Vitamin B-12) [Vitamin B-12 500 mcg Tablet] 500 mcg PO DAILY 10/22/18 Donepezil HCl [Aricept] 10 mg PO QPM 10/22/18 Fexofenadine HCl [Tressa] 180 mg PO DAILY 10/22/18 Fluticasone Propionate [Flonase Nasal [place] 50 Mcg/[place] 16 gm] 1 spray NASL DAILY 10/22/18 Latanoprost [Xalatan 0.005% Oph Soln 2.5 ml] 1 drop OU QHS 10/22/18 Levetiracetam [Keppra] 1,000 mg PO Q12 10/22/18 Loperamide HCl/Simethicone [Anti-Diarrheal+Anti-Gas Cplt] 1 tab PO BIDP PRN 10/22/18 Magnesium Hydroxide [Milk of Magnesia 30 ml Udcup] 30 ml PO DAILYP PRN 10/22/18 Memantine HCl [Namenda Xr] 28 mg PO QPM 10/22/18 Metoprolol/Hydrochlorothiazide [Lopressor HCT 100-25 Tablet] 1 tab PO DAILY 10/22/18 Potassium Chloride [Klor-Con M10] 10 meq PO DAILY 10/22/18 Simethicone [Gas Relief] 180 mg PO DAILYP PRN 10/22/18 Vortioxetine Hydrobromide [Trintellix] 10 mg PO DAILY 10/22/18 Zinc Sulfate [Zinc-220 Capsule] 220 mg PO MOTUWETH@1000 10/22/18 Allergies/Adverse Reactions: shellfish derived Allergy (Verified 10/22/18 07:10) Review of Systems Constitutional: PRESENT: chills, fever(s) Eyes: ABSENT: visual disturbances Ears: ABSENT: hearing changes Cardiovascular: ABSENT: chest pain, dyspnea on exertion, edema, orthropnea, palpitations Respiratory: ABSENT: cough, hemoptysis Gastrointestinal: ABSENT: abdominal pain, constipation, diarrhea, hematemesis, hematochezia, nausea, vomiting Genitourinary: ABSENT: dysuria, hematuria Musculoskeletal: ABSENT: joint swelling Integumentary: ABSENT: rash, wounds Neurological: ABSENT: abnormal gait, abnormal speech, confusion, dizziness, focal weakness, syncope Psychiatric: ABSENT: anxiety, depression, homidical ideation, suicidal ideation Endocrine: ABSENT: cold intolerance, heat intolerance, menstrual abnormalities, polydipsia, polyuria Hematologic/Lymphatic: ABSENT: easy bleeding, easy bruising, lymphadenopathy Physical Exam Vital Signs: Temp Pulse Resp BP Pulse Ox 100.5 F H 73 22 H 108/90 H 96 10/22/18 13:50 10/22/18 13:50 10/22/18 13:50 10/22/18 13:50 10/22/18 13:50 Intake & Output 10/21/18 10/22/18 10/23/18 06:59 06:59 06:59 Intake Total 1999 Balance 2000 Weight 93.2 kg Head exam: PRESENT: atraumatic, normocephalic Eye exam: PRESENT: PERRLA Mouth exam: PRESENT: moist, tongue midline Neck exam: PRESENT: full ROM Respiratory exam: PRESENT: clear to auscultation vanessa Cardiovascular exam: PRESENT: RRR, +S1, +S2 Vascular exam: PRESENT: normal capillary refill GI/Abdominal exam: PRESENT: normal bowel sounds, soft Rectal exam: PRESENT: deferred Neurological exam: PRESENT: alert, CN II-XII grossly intact Results Laboratory Results: 10/22/18 06:07 10/22/18 06:07 10/22/18 10/22/18 10/22/18 06:07 06:07 06:07 WBC 9.2 RBC 3.15 L Hgb 10.6 L Hct 30.6 L MCV 97 MCH 33.8 H MCHC 34.7 RDW 12.3 Plt Count 204 Seg Neutrophils % 84.7 H Lymphocytes % 6.2 L Monocytes % 8.8 Eosinophils % 0.0 Basophils % 0.3 Absolute Neutrophils 7.8 Absolute Lymphocytes 0.6 Absolute Monocytes 0.8 Absolute Eosinophils 0.0 Absolute Basophils 0.0 VBG pH VBG pCO2 VBG HCO3 VBG Base Excess Sodium 133.8 L Potassium 3.7 Chloride 95 L Carbon Dioxide 28 Anion Gap 11 BUN 23 H Creatinine 1.43 H Est GFR ( Amer) 43 L Est GFR (Non-Af Amer) 35 L Glucose 132 H Lactic Acid Calcium 9.2 Phosphorus 2.9 Magnesium 1.5 L Total Bilirubin 0.4 AST 32 ALT 10 Alkaline Phosphatase 68 Ammonia Total Protein 7.6 Albumin 3.8 Amylase 63 Lipase 62.9 TSH Free T4 Urine Color Urine Appearance Urine pH Ur Specific [place] Urine Protein Urine Glucose (UA) Urine Ketones Urine Blood Urine Nitrite Ur Leukocyte Esterase Urine WBC (Auto) Urine RBC (Auto) 10/22/18 10/22/18 10/22/18 06:07 06:48 07:00 WBC RBC Hgb Hct MCV MCH MCHC RDW Plt Count Seg Neutrophils % Lymphocytes % Monocytes % Eosinophils % Basophils % Absolute Neutrophils Absolute Lymphocytes Absolute Monocytes Absolute Eosinophils Absolute Basophils VBG pH VBG pCO2 VBG HCO3 VBG Base Excess Sodium Potassium Chloride Carbon Dioxide Anion Gap BUN Creatinine Est GFR ( Amer) Est GFR (Non-Af Amer) Glucose Lactic Acid 2.2 H Calcium Phosphorus Magnesium Total Bilirubin AST ALT Alkaline Phosphatase Ammonia Total Protein Albumin Amylase Lipase TSH 1.09 Free T4 0.97 Urine Color YELLOW Urine Appearance SLIGHTLY-CLOUDY Urine pH 6.0 Ur Specific [place] 1.013 Urine Protein NEGATIVE Urine Glucose (UA) NEGATIVE Urine Ketones NEGATIVE Urine Blood LARGE H Urine Nitrite NEGATIVE Ur Leukocyte Esterase MODERATE H Urine WBC (Auto) 21 Urine RBC (Auto) 48 10/22/18 10/22/18 10/22/18 07:40 10:08 14:26 WBC RBC Hgb Hct MCV MCH MCHC RDW Plt Count Seg Neutrophils % Lymphocytes % Monocytes % Eosinophils % Basophils % Absolute Neutrophils Absolute Lymphocytes Absolute Monocytes Absolute Eosinophils Absolute Basophils VBG pH 7.38 VBG pCO2 49.6 VBG HCO3 28.9 VBG Base Excess 2.9 Sodium Potassium Chloride Carbon Dioxide Anion Gap BUN Creatinine Est GFR ( Amer) Est GFR (Non-Af Amer) Glucose Lactic Acid 1.1 Calcium Phosphorus Magnesium Total Bilirubin AST ALT Alkaline Phosphatase Ammonia < 8.7 L Total Protein Albumin Amylase Lipase TSH Free T4 Urine Color Urine Appearance Urine pH Ur Specific [place] Urine Protein Urine Glucose (UA) Urine Ketones Urine Blood Urine Nitrite Ur Leukocyte Esterase Urine WBC (Auto) Urine RBC (Auto) 10/22/18 10/22/18 10/22/18 06:07 10:08 10:08 Creatine Kinase CK-MB (CK-2) Troponin I 0.049 0.036 NT-Pro-B Natriuret Pep 1290 H 10/22/18 10/22/18 10/22/18 10:08 10:08 16:15 Creatine Kinase 46 51 CK-MB (CK-2) < 0.22 Troponin I NT-Pro-B Natriuret Pep 10/22/18 16:15 Creatine Kinase CK-MB (CK-2) 0.37 Troponin I NT-Pro-B Natriuret Pep Impressions: Chest X-Ray 10/22/18 05:55 IMPRESSION: No acute cardiopulmonary process copyright 2011 [employer]- All Rights Reserved Assessment & Plan - Diagnosis (1) Urinary tract infection Qualifiers: Urinary tract infection type: acute cystitis Hematuria presence: with hematuria Qualified Code(s): N30.01 - Acute cystitis with hematuria Is this a current diagnosis for this admission?: Yes Plan: Patient is admitted for the management of UTI, start IV Rocephin (2) Acute kidney injury Is this a current diagnosis for this admission?: Yes Plan: She has acute kidney injury with background of chronic kidney disease stage III, This is most likely prerenal (3) Vascular dementia Qualifiers: Dementia behavioral disturbance: with behavioral disturbance Qualified Code(s): F01.51 - Vascular dementia with behavioral disturbance Is this a current diagnosis for this admission?: Yes
[2018-10-22] MEDS ORDERED: (PENDING PHARMACY ID) (Memantine Hcl [Namenda Xr] 28 MG) PO SCH (18:00)
[2018-10-22] MEDS ORDERED: (PENDING PHARMACY ID) (Donepezil Hcl [Aricept] 10 MG) PO SCH (18:00)
[2018-10-22] MEDS: LORAZEPAM 0.5 MG TABLET PO PRN (18:04)
[2018-10-22] MEDS: DONEPEZIL HCL 5 MG TABLET PO SCH ×2 (19:17→19:30)
[2018-10-22] MEDS ORDERED: HALOPERIDOL LACTATE INJ 5 MG/1 ML VIAL IM ONE (21:30)
[2018-10-22] MEDS: BUSPIRONE HCL 10 MG TABLET PO SCH (21:39)
[2018-10-22] MEDS: LATANOPROST 0.005% OPH SOLN 2.5 ML OU SCH (22:20)
[2018-10-23 06:29] LABS: ABSOLUTE MONOCYTES (AUTO) 1.3 10^3/uL (0.1-1.4); RED CELL DISTRIBUTION WIDTH 12.6 % (11.5-14.0); TOTAL CELLS COUNTED % (AUTO) 100 %
[2018-10-23 06:35] LABS: ALANINE AMINOTRANSFERASE 12 U/L (9-52); ALKALINE PHOSPHATASE 62 U/L (38-126); ANION GAP 12 (5-19); ASPARTATE AMINO TRANSFERASE 18 U/L (14-36); BILIRUBIN,DIRECT 0.3 mg/dL (0.0-0.4); BILIRUBIN,TOTAL 0.6 mg/dL (0.2-1.3); BLOOD UREA NITROGEN 15 mg/dL (7-20); CALCIUM 8.7 mg/dL (8.4-10.2); CARBON DIOXIDE 24 mmol/L (22-30); CHLORIDE 101 mmol/L (98-107); CHOLESTEROL 203.57 mg/dL (0-200); GLUCOSE 85 mg/dL (75-110); POTASSIUM 3.7 mmol/L (3.6-5.0); SODIUM 137.4 mmol/L (137-145); TOTAL PROTEIN 6.2 g/dL (6.3-8.2); TRIGLYCERIDES 77 mg/dL (<150)
[2018-10-23 06:42] LABS: ABSOLUTE NEUT (AUTO) 10.2 10^3/uL (1.7-8.2); BASOPHILS % (AUTO) 0.1 % (0-2); EOSINOPHILS % (AUTO) 0.1 % (0-6); HEMOGLOBIN 9.7 g/dL (12.0-15.5); MEAN CORPUSCULAR HEMOGLOBIN 33.8 pg (27.0-33.4); MEAN CORPUSCULAR HGB CONC 34.7 g/dL (32.0-36.0); MEAN CORPUSCULAR VOLUME 97 fl (80-97); MONOCYTES % (AUTO) 10.6 % (3-13); PLATELET COUNT 157 10^3/uL (150-450); RED BLOOD COUNT 2.87 10^6/uL (3.72-5.28); SEGMENTED NEUTROPHILS % (AUTO) 81.2 % (42-78); WHITE BLOOD COUNT 12.6 10^3/uL (4.0-10.5)
[2018-10-23 06:46] LABS: DIRECT LDL 130 mg/dL (<100)
[2018-10-23] MEDS: NORMAL SALINE 1000 ML 1,000 ML IV PRN (07:24)
[2018-10-23] MEDS: FLUTICASONE NASAL SPRAY 50 MCG/SPRY 120 SPRAY/16 GM NASL SCH (09:45)
[2018-10-23] MEDS: ENOXAPARIN SODIUM INJ 40 MG/0.4 ML DISP.SYRIN SUBCUT SCH (09:48)
[2018-10-23] MEDS: CEFTRIAXONE 1 GM/D5W RTU 1 GM/50 ML RTUPB IV SCH (09:50)
[2018-10-23] MEDS: BUSPIRONE HCL 10 MG TABLET PO SCH ×2 (09:51→21:33)
[2018-10-23] MEDS: LORATADINE 10 MG TABLET PO SCH (09:52)
[2018-10-23] MEDS: METOPROLOL TARTRATE 100 MG TABLET PO SCH (09:52)
[2018-10-23] MEDS: CYANOCOBALAMIN (VITAMIN B-12) 1,000 MCG TABLET PO SCH (09:52)
[2018-10-23] MEDS: CLOPIDOGREL BISULFATE 75 MG TABLET PO SCH (09:52)
[2018-10-23] MEDS: POTASSIUM CHLORIDE 10 MEQ CAPSULE.ER PO SCH (09:52)
[2018-10-23] MEDS: LEVETIRACETAM 500 MG TABLET PO SCH ×2 (09:52→21:24)
[2018-10-23] MEDS: CHOLECALCIFEROL (D3) 400 UNIT TABLET PO SCH (09:53)
[2018-10-23] MEDS: ASCORBIC ACID 500 MG TABLET PO SCH (09:53)
[2018-10-23] MEDS: ACETAMINOPHEN 325 MG TABLET PO PRN (10:33)
--- NOTE | 2018-10-23 15:11 | PDOC PROGRESS REPORT ---
Subjective Progress Note for:: 10/23/18 Subjective:: Patient was seen by the bedside last night she was agitated she required a dose of Haldol, that seems to help control agitation Reason For Visit: URINARY TRACT INFECTION,LACTIC ACIDOSIS Physical Exam Vital Signs: Temp Pulse Resp BP Pulse Ox 98.6 F 56 L 18 130/39 H 99 10/23/18 11:37 10/23/18 14:00 10/23/18 11:37 10/23/18 11:37 10/23/18 11:37 Intake & Output 10/22/18 10/23/18 10/24/18 06:59 06:59 06:59 Intake Total 3000 250 Balance 3000 250 Weight 92.3 kg General appearance: PRESENT: no acute distress Eye exam: PRESENT: PERRLA Respiratory exam: PRESENT: clear to auscultation vanessa Cardiovascular exam: PRESENT: +S1, +S2 GI/Abdominal exam: PRESENT: soft Neurological exam: PRESENT: alert Results Laboratory Results: 10/23/18 05:09 10/23/18 05:09 10/23/18 10/23/18 05:09 05:09 WBC 12.6 H RBC 2.87 L Hgb 9.7 L Hct 28.0 L MCV 97 MCH 33.8 H MCHC 34.7 RDW 12.6 Plt Count 157 Seg Neutrophils % 81.2 H Lymphocytes % 8.0 L Monocytes % 10.6 Eosinophils % 0.1 Basophils % 0.1 Absolute Neutrophils 10.2 H Absolute Lymphocytes 1.0 Absolute Monocytes 1.3 Absolute Eosinophils 0.0 Absolute Basophils 0.0 Sodium 137.4 Potassium 3.7 Chloride 101 Carbon Dioxide 24 Anion Gap 12 BUN 15 Creatinine 1.22 Est GFR ( Amer) 51 L Est GFR (Non-Af Amer) 43 L Glucose 85 Calcium 8.7 Total Bilirubin 0.6 AST 18 ALT 12 Alkaline Phosphatase 62 Total Protein 6.2 L Albumin 3.0 L Triglycerides 77 Cholesterol 203.57 H LDL Cholesterol Direct 130 H VLDL Cholesterol 15.0 HDL Cholesterol 37 L 10/22/18 10/22/18 10/22/18 06:07 10:08 10:08 Creatine Kinase CK-MB (CK-2) Troponin I 0.049 0.036 NT-Pro-B Natriuret Pep 1290 H 10/22/18 10/22/18 10/22/18 10:08 10:08 16:15 Creatine Kinase 46 51 CK-MB (CK-2) < 0.22 Troponin I NT-Pro-B Natriuret Pep 10/22/18 10/23/18 10/23/18 16:15 01:29 01:29 Creatine Kinase 163 H CK-MB (CK-2) 0.37 0.84 Troponin I NT-Pro-B Natriuret Pep Impressions: Chest X-Ray 10/22/18 05:55 IMPRESSION: No acute cardiopulmonary process copyright [address]- All Rights Reserved Assessment & Plan - Diagnosis (1) Urinary tract infection Qualifiers: Urinary tract infection type: acute cystitis Hematuria presence: with hematuria Qualified Code(s): N30.01 - Acute cystitis with hematuria Is this a current diagnosis for this admission?: Yes Plan: Urine culture is growing gram-negative rods, patient presently empirically on IV Rocephin (2) Acute kidney injury Is this a current diagnosis for this admission?: Yes Plan: There is normalization of serum creatinine suggesting that the azotemia is probably prerenal (3) Vascular dementia Qualifiers: Dementia behavioral disturbance: with behavioral disturbance Qualified Code(s): F01.51 - Vascular dementia with behavioral disturbance Is this a current diagnosis for this admission?: Yes
[2018-10-23] MEDS: HYDROCHLOROTHIAZIDE 25 MG TABLET PO SCH (17:56)
[2018-10-23] MEDS: LORAZEPAM 0.5 MG TABLET PO PRN (20:20)
[2018-10-23] MEDS: LATANOPROST 0.005% OPH SOLN 2.5 ML OU SCH (21:35)
[2018-10-24 05:36] LABS: HEMATOCRIT 26.8 % (36.0-47.0); HEMOGLOBIN 9.4 g/dL (12.0-15.5); MEAN CORPUSCULAR HEMOGLOBIN 34.3 pg (27.0-33.4); MEAN CORPUSCULAR HGB CONC 35.1 g/dL (32.0-36.0); MEAN CORPUSCULAR VOLUME 98 fl (80-97); PLATELET COUNT 129 10^3/uL (150-450); RED BLOOD COUNT 2.74 10^6/uL (3.72-5.28); RED CELL DISTRIBUTION WIDTH 12.4 % (11.5-14.0); WHITE BLOOD COUNT 9.5 10^3/uL (4.0-10.5)
[2018-10-24 05:52] LABS: ALANINE AMINOTRANSFERASE 11 U/L (9-52); ALBUMIN 2.9 g/dL (3.5-5.0); ALKALINE PHOSPHATASE 61 U/L (38-126); ANION GAP 9 (5-19); ASPARTATE AMINO TRANSFERASE 17 U/L (14-36); BILIRUBIN,DIRECT 0.3 mg/dL (0.0-0.4); BILIRUBIN,TOTAL 0.4 mg/dL (0.2-1.3); BLOOD UREA NITROGEN 16 mg/dL (7-20); CALCIUM 8.6 mg/dL (8.4-10.2); CARBON DIOXIDE 26 mmol/L (22-30); CHLORIDE 103 mmol/L (98-107); GLUCOSE 88 mg/dL (75-110); POTASSIUM 3.8 mmol/L (3.6-5.0); SODIUM 137.8 mmol/L (137-145)
[2018-10-24] MEDS: ACETAMINOPHEN 325 MG TABLET PO PRN (06:38)
[2018-10-24 06:53] LABS: ABSOLUTE LYMPHOCYTES# (MANUAL) 1.2 10^3/uL (0.5-4.7); BASOPHILS % (MANUAL) 0 % (0-2); EOSINOPHILS % (MANUAL) 2 % (0-6); LYMPHOCYTES % (MANUAL) 13 % (13-45); MONOCYTES % (MANUAL) 11 % (3-13); SEGMENTED NEUTROPHILS % (MAN) 74 % (42-78); TOTAL CELLS COUNTED 100
[2018-10-24 07:07] LABS: PLATELET COMMENT DECREASED
[2018-10-24 07:08] LABS: RBC MORPHOLOGY COMMENT NORMO-CYTIC/CHROMIC
[2018-10-24] MEDS: CEFTRIAXONE 1 GM/D5W RTU 1 GM/50 ML RTUPB IV SCH (08:45)
[2018-10-24] MEDS ORDERED: ZINC SULFATE 220 MG CAPSULE PO SCH (10:00)
[2018-10-24] MEDS: ENOXAPARIN SODIUM INJ 40 MG/0.4 ML DISP.SYRIN SUBCUT SCH (10:56)
[2018-10-24] MEDS: BUSPIRONE HCL 10 MG TABLET PO SCH (11:01)
[2018-10-24] MEDS: HYDROCHLOROTHIAZIDE 25 MG TABLET PO SCH (11:02)
[2018-10-24] MEDS: LEVETIRACETAM 500 MG TABLET PO SCH (11:02)
[2018-10-24] MEDS: LORATADINE 10 MG TABLET PO SCH (11:02)
[2018-10-24] MEDS: METOPROLOL TARTRATE 100 MG TABLET PO SCH (11:03)
[2018-10-24] MEDS: POTASSIUM CHLORIDE 10 MEQ CAPSULE.ER PO SCH (11:03)
[2018-10-24] MEDS: CLOPIDOGREL BISULFATE 75 MG TABLET PO SCH (11:04)
[2018-10-24] MEDS: ASCORBIC ACID 500 MG TABLET PO SCH (11:04)
[2018-10-24] MEDS: CHOLECALCIFEROL (D3) 400 UNIT TABLET PO SCH (11:04)
[2018-10-24] MEDS: CYANOCOBALAMIN (VITAMIN B-12) 1,000 MCG TABLET PO SCH (11:05)
[2018-10-24] MEDS: FLUTICASONE NASAL SPRAY 50 MCG/SPRY 120 SPRAY/16 GM NASL SCH (11:06)
[2018-10-24] MEDS ORDERED: HALOPERIDOL LACTATE INJ 5 MG/1 ML VIAL ONE (15:46)
[2018-10-24] MEDS ORDERED: HALOPERIDOL LACTATE INJ 5 MG/1 ML VIAL IM ONE (16:15)
[2018-10-24] MEDS: DONEPEZIL HCL 5 MG TABLET PO SCH (17:04)
[2018-10-24 17:54] VITALS: BP 108/90
--- NOTE | 2018-10-24 18:21 | PDOC DISCHARGE SUMMARY ---
General - Admit/Disc Date/PCP Admission Date/Primary Care Provider: 10/22/18 08:41 MARI ANDERSON MD Discharge Date: 10/24/18 - Discharge Diagnosis (1) Urinary tract infection due to Klebsiella species Is this a current diagnosis for this admission?: Yes (2) Acute kidney injury Is this a current diagnosis for this admission?: Yes (3) Vascular dementia Is this a current diagnosis for this admission?: Yes - Additional Information Prescriptions: Ciprofloxacin HCl [Cipro 500 mg Tablet] 500 mg PO BID #10 tablet Home Medications: Acetaminophen [Tylenol Extra Strength 500 mg Tablet] 500 mg PO Q12HP PRN 10/22/18 Ascorbic Acid [Vitamin C 500 mg Tablet] 500 mg PO DAILY 10/22/18 Buspirone HCl [Buspar 15 mg Tablet] 15 mg PO Q12 10/22/18 Cholecalciferol (Vitamin D3) [Vitamin D3 400 Unit Tablet] 400 mg PO DAILY 10/22/18 Clonazepam [Klonopin 1 mg Tablet] 1 mg PO DAILYP PRN 10/22/18 Clopidogrel Bisulfate [Plavix 75 mg Tablet] 75 mg PO DAILY 10/22/18 Cyanocobalamin (Vitamin B-12) [Vitamin B-12 500 mcg Tablet] 500 mcg PO DAILY 10/22/18 Donepezil HCl [Aricept] 10 mg PO QPM 10/22/18 Fexofenadine HCl [Tressa] 180 mg PO DAILY 10/22/18 Fluticasone Propionate [Flonase Nasal [place] 50 Mcg/[place] 16 gm] 1 spray NASL DAILY 10/22/18 Latanoprost [Xalatan 0.005% Oph Soln 2.5 ml] 1 drop OU QHS 10/22/18 Levetiracetam [Keppra] 1,000 mg PO Q12 10/22/18 Loperamide HCl/Simethicone [Anti-Diarrheal+Anti-Gas Cplt] 1 tab PO BIDP PRN 10/22/18 Magnesium Hydroxide [Milk of Magnesia 30 ml Udcup] 30 ml PO DAILYP PRN 10/22/18 Memantine HCl [Namenda Xr] 28 mg PO QPM 10/22/18 Metoprolol/Hydrochlorothiazide [Lopressor HCT 100-25 Tablet] 1 tab PO DAILY 10/22/18 Potassium Chloride [Klor-Con M10] 10 meq PO DAILY 10/22/18 Simethicone [Gas Relief] 180 mg PO DAILYP PRN 10/22/18 Vortioxetine Hydrobromide [Trintellix] 10 mg PO DAILY 10/22/18 Zinc Sulfate [Zinc-220 Capsule] 220 mg PO MOTUWETH@1000 10/22/18 Ciprofloxacin HCl [Cipro 500 mg Tablet] 500 mg PO BID #10 tablet 10/24/18 History of Present Illness History of Present Illness: CLAUDIA DUMONT is a 78 year old female She has a history of vascular dementia, CVA, she was brought to the emergency room for evaluation of fever with a temperature 102 there was associated chills there was no cough there was no apparent cause of the fever by the family so she was brought to the ER for evaluation. In the emergency room she was evaluated the dipstick urinalysis was grossly abnormal with positive leukocyte esterase, nitrite the urine microscopy demonstrated significant bacteriuria, pyuria suggesting that she has a UTI. The serum creatinine was 1.43 she has a history of background chronic kidney disease stage III with a baseline creatinine of 1.3 she also has lactic acidosis suggesting end organ injury, history taking was a challenge partly from dem entia and from the infection. Hospital Course Hospital Course: She has background vascular dementia she was admitted for the management of Klebsiella UTI with acute kidney injury. She was initially treated with intravenous ceftriaxone, the kidney function normalizes with IV fluid therapy suggesting a prerenal component on a pre-existing chronic kidney disease. The Klebsiella is sensitive to all antibiotic including ciprofloxacin. She has dementia there was episode of agitation and confusion she required intermittent Haldol that was given intramuscularly with good results Physical Exam Vital Signs: Temp Pulse Resp BP Pulse Ox 97.4 F 67 18 108/90 H 99 10/24/18 17:53 10/24/18 17:53 10/24/18 17:53 10/24/18 17:53 10/24/18 17:53 Intake & Output 10/23/18 10/24/18 10/25/18 06:59 06:59 06:59 Intake Total 3000 1038 200 Balance 3000 1038 200 Weight 92.3 kg 91.2 kg General appearance: PRESENT: no acute distress Head exam: PRESENT: atraumatic, normocephalic Eye exam: PRESENT: PERRLA Neck exam: PRESENT: full ROM Respiratory exam: PRESENT: clear to auscultation vanessa Cardiovascular exam: PRESENT: RRR, +S1, +S2 Pulses: PRESENT: normal dorsalis pedis pul, +2 pedal pulses bilateral Vascular exam: PRESENT: normal capillary refill GI/Abdominal exam: PRESENT: normal bowel sounds, soft Rectal exam: PRESENT: deferred Neurological exam: PRESENT: alert Skin exam: PRESENT: dry, intact, warm Results Laboratory Results: 10/24/18 04:25 10/24/18 04:25 10/24/18 10/24/18 04:25 04:25 WBC 9.5 RBC 2.74 L Hgb 9.4 L Hct 26.8 L MCV 98 H MCH 34.3 H MCHC 35.1 RDW 12.4 Plt Count 129 L Seg Neutrophils % Not Reportable Lymphocytes % Not Reportable Monocytes % Not Reportable Eosinophils % Not Reportable Basophils % Not Reportable Absolute Neutrophils Not Reportable Absolute Lymphocytes Not Reportable Absolute Monocytes Not Reportable Absolute Eosinophils Not Reportable Absolute Basophils Not Reportable Sodium 137.8 Potassium 3.8 Chloride 103 Carbon Dioxide 26 Anion Gap 9 BUN 16 Creatinine 1.04 Est GFR ( Amer) > 60 Est GFR (Non-Af Amer) 51 L Glucose 88 Calcium 8.6 Total Bilirubin 0.4 AST 17 ALT 11 Alkaline Phosphatase 61 Total Protein 6.0 L Albumin 2.9 L 10/22/18 07:00 Catheterized Urine Urine Culture - Final Klebsiella Pneumoniae 10/22/18 10/22/18 10/22/18 06:07 10:08 10:08 Creatine Kinase CK-MB (CK-2) Troponin I 0.049 0.036 NT-Pro-B Natriuret Pep 1290 H 10/22/18 10/22/18 10/22/18 10:08 10:08 16:15 Creatine Kinase 46 51 CK-MB (CK-2) < 0.22 Troponin I NT-Pro-B Natriuret Pep 10/22/18 10/23/18 10/23/18 16:15 01:29 01:29 Creatine Kinase 163 H CK-MB (CK-2) 0.37 0.84 Troponin I NT-Pro-B Natriuret Pep Impressions: Chest X-Ray 10/22/18 05:55 IMPRESSION: No acute cardiopulmonary process copyright 2011 [employer]- All Rights Reserved Qualifiers - * PATIENT BEING DISCHARGED WITH ANY OF THE FOLLOWING DIAGNOSIS: No
== END 2018-10-24 19:24 | disposition home or self-care (01) | DRG 690 ==
LOC: ER 05:46 → UNDOADMIN 08:41 → EH 08:41 → 3W 13:19
PROVIDERS: ADMIT Internal Medicine; ATTEND Internal Medicine
DX: N39.0 Urinary tract infection, site not specified (principal); N17.9 Acute kidney failure, unspecified; E78.00 Pure hypercholesterolemia, unspecified; K21.9 Gastro-esophageal reflux disease without esophagitis; E86.0 Dehydration; B96.1 Klebsiella pneumoniae [K. pneumoniae] as the cause of diseases classified elsewhere; I12.9 Hypertensive chronic kidney disease with stage 1 through stage 4 chronic kidney disease, or unspecified chronic kidney disease; N18.3 Chronic kidney disease, stage 3 (moderate); F01.50 Vascular dementia, unspecified severity, without behavioral disturbance, psychotic disturbance, mood disturbance, and anxiety; F41.9 Anxiety disorder, unspecified; Z87.891 Personal history of nicotine dependence; Z79.01 Long term (current) use of anticoagulants; Z79.899 Other long term (current) drug therapy
CPT/HCPCS: 36415; 71045; 80048; 80053; 80061; 80076; 81001; 82140; 82150; 82550; 82553; 82803; 83036; 83605; 83690; 83735; 83880; 84100; 84439; 84443; 84484; 85025; 85610; 85730; 87040; 87086; 87088; 87186; 93005; 93010; 96365; 99285; J0696; J1630; J1650; J3490; J7030

== ENCOUNTER 2018-12-04 02:01 | Emergency (ER) | payer MEDICARE, MEDICAID ==
[2018-12-04 02:44] LABS: ABSOLUTE EOSINOPHILS # (AUTO) 0.1 10^3/uL (0.0-0.6); ABSOLUTE LYMPHOCYTES (AUTO) 1.7 10^3/uL (0.5-4.7); ABSOLUTE MONOCYTES (AUTO) 0.5 10^3/uL (0.1-1.4); ABSOLUTE NEUT (AUTO) 2.5 10^3/uL (1.7-8.2); BASOPHILS % (AUTO) 0.6 % (0-2); EOSINOPHILS % (AUTO) 1.5 % (0-6); HEMATOCRIT 33.7 % (36.0-47.0); HEMOGLOBIN 11.4 g/dL (12.0-15.5); MEAN CORPUSCULAR HEMOGLOBIN 33.5 pg (27.0-33.4); MEAN CORPUSCULAR HGB CONC 33.9 g/dL (32.0-36.0); MEAN CORPUSCULAR VOLUME 99 fl (80-97); PLATELET COUNT 221 10^3/uL (150-450); RED CELL DISTRIBUTION WIDTH 13.7 % (11.5-14.0); SEGMENTED NEUTROPHILS % (AUTO) 52.9 % (42-78); TOTAL CELLS COUNTED % (AUTO) 100 %; WHITE BLOOD COUNT 4.7 10^3/uL (4.0-10.5)
[2018-12-04 03:05] LABS: ALANINE AMINOTRANSFERASE 16 U/L (9-52); ALBUMIN 3.8 g/dL (3.5-5.0); ALKALINE PHOSPHATASE 76 U/L (38-126); ANION GAP 11 (5-19); ASPARTATE AMINO TRANSFERASE 20 U/L (14-36); BILIRUBIN,DIRECT 0.3 mg/dL (0.0-0.4); BILIRUBIN,TOTAL 0.6 mg/dL (0.2-1.3); BLOOD UREA NITROGEN 11 mg/dL (7-20); CALCIUM 9.3 mg/dL (8.4-10.2); CARBON DIOXIDE 28 mmol/L (22-30); CHLORIDE 102 mmol/L (98-107); GLUCOSE 96 mg/dL (75-110); POTASSIUM 3.8 mmol/L (3.6-5.0); SODIUM 141.1 mmol/L (137-145); TOTAL PROTEIN 7.4 g/dL (6.3-8.2)
[2018-12-04 03:30] LABS: APPEARANCE,URINE SLIGHTLY-CLOUDY; BILIRUBIN,URINE NEGATIVE (NEGATIVE); COLOR,URINE YELLOW; GLUCOSE, URINE NEGATIVE (NEGATIVE); KETONES,URINE NEGATIVE (NEGATIVE); LEUKOCYTE ESTERASE,URINE TRACE (NEGATIVE); NITRITE,URINE NEGATIVE (NEGATIVE); PROTEIN,URINE NEGATIVE (NEGATIVE); URINE SPECIFIC GRAVITY 1.005; UROBILINOGEN,URINE NEGATIVE mg/dL (<2.0)
--- NOTE | 2018-12-04 04:05 | RADIOLOGY REPORT (SQ) ---
EXAM DESCRIPTION: CT HEAD WITHOUT IV CONTRAST COMPLETED DATE/TME: 12/04/2018 02:16 CLINICAL HISTORY: 78 years, Female, dizzy.HTN COMPARISON: 09/10/2017 CT TECHNIQUE: 193 Images stored on PACS. All CT scanners at this facility use dose modulation, iterative reconstruction, and/or weight based dosing when appropriate to reduce radiation dose to as low as reasonably achievable (ALARA). [facility]: Dose Right [facility]: CareDose [facility]: Dose Right [facility]: Teradose 4D [facility]: [employer] LIMITATIONS: None. FINDINGS: Globes intact. Paranasal sinuses and mastoid air cells are unremarkable. No displaced or depressed skull fracture. No intra or extra-axial hemorrhage. CT is limited for evaluation of acute infarct. No CT evidence for large or territorial acute infarct. Old infarct in the left parieto-occipital region. Atrophy with small vessel ischemic change. No mass or midline shift IMPRESSION: 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 Atrophy. Small vessel ischemic change TECHNICAL DOCUMENTATION: Quality ID # [id number]: Final reports with documentation of one or more dose reduction techniques (e.g., Automated exposure control, adjustment of the mA and/or kV according to patient size, use of iterative reconstruction technique) copyright 2010 [facility]- All Rights Reserved
--- NOTE | 2018-12-04 04:06 | RADIOLOGY REPORT (SQ) ---
EXAM DESCRIPTION: XR CHEST 1 VIEW COMPLETED DATE/TME: 12/04/2018 02:16 CLINICAL HISTORY: 78 years, Female, HTN COMPARISON: 10/22/2018 chest NUMBER OF VIEWS: 1 TECHNIQUE: Portable chest LIMITATIONS: None. FINDINGS: Heart size is stable. Atheromatous change thoracic aorta. Lungs clear. No pneumothorax IMPRESSION: No acute cardiopulmonary process copyright 2010 [employer]- All Rights Reserved
--- NOTE | 2018-12-04 05:28 | ER Document Report ---
ED Blood Pressure Problem - General Chief Complaint: High Blood Pressure Stated Complaint: HIGH BLOOD PRESSURE Time Seen by Provider: 12/04/18 02:07 Primary Care Provider: MARI ANDERSON MD [Primary Care Provider] - Follow up as needed Notes: Labs and CT imaging entered in patient's HPI inadvertently. Patient is a 78-year-old female presents to the emergency department via EMS for increased anxiousness and elevated blood pressure. Patient's daughter is at bedside with patient. States recently the patient was placed on clindamycin for a sinus infection. States ever since then she feels as though her mother is "more anxious." States patient was also complaining of generalized dizziness and they noted her blood pressure was 170 systolic. Patient's daughter states Dr. Anderson recently change the patient's blood pressure medication but she is unsure of the name of the medication that was added to her regimen. Patient's daughter states patient does have a history of dementia and gets very anxious easily. States has had to be sedated multiple times in the emergency department and at Her assisted care living facility. Daughter states the patient was not complaining of anything else. She denies any complaints of chest pain, shortness of breath, headache. Daughter states the last time the patient was diagnosed with a urinary tract infection she was "very anxious." Daughter was concerned that the patient may have a repeat urinary tract infection. Laboratory 12/04/18 12/04/18 12/04/18 02:30 02:30 02:30 WBC 4.7 RBC 3.40 L Hgb 11.4 L Hct 33.7 L MCV 99 H MCH 33.5 H MCHC 33.9 RDW 13.7 Plt Count 221 Seg Neutrophils % 52.9 Lymphocytes % 35.0 Monocytes % 10.0 Eosinophils % 1.5 Basophils % 0.6 Absolute Neutrophils 2.5 Absolute Lymphocytes 1.7 Absolute Monocytes 0.5 Absolute Eosinophils 0.1 Absolute Basophils 0.0 Sodium 141.1 Potassium 3.8 Chloride 102 Carbon Dioxide 28 Anion Gap 11 BUN 11 Creatinine 1.15 Est GFR ( Amer) 55 L Est GFR (Non-Af Amer) 46 L Glucose 96 Calcium 9.3 Total Bilirubin 0.6 Direct Bilirubin 0.3 Neonat Total Bilirubin Not Reportable Neonat Direct Bilirubin Not Reportable Neonat Indirect Bili Not Reportable AST 20 ALT 16 Alkaline Phosphatase 76 Troponin I < 0.012 Total Protein 7.4 Albumin 3.8 Urine Color Urine Appearance Urine pH Ur Specific [place] Urine Protein Urine Glucose (UA) Urine Ketones Urine Blood Urine Nitrite Urine Bilirubin Urine Urobilinogen Ur Leukocyte Esterase Urine WBC (Auto) Urine RBC (Auto) Urine Bacteria (Auto) Squamous Epi Cells Auto Urine Ascorbic Acid 12/04/18 03:04 WBC RBC Hgb Hct MCV MCH MCHC RDW Plt Count Seg Neutrophils % Lymphocytes % Monocytes % Eosinophils % Basophils % Absolute Neutrophils Absolute Lymphocytes Absolute Monocytes Absolute Eosinophils Absolute Basophils Sodium Potassium Chloride Carbon Dioxide Anion Gap BUN Creatinine Est GFR ( Amer) Est GFR (Non-Af Amer) Glucose Calcium Total Bilirubin Direct Bilirubin Neonat Total Bilirubin Neonat Direct Bilirubin Neonat Indirect Bili AST ALT Alkaline Phosphatase Troponin I Total Protein Albumin Urine Color YELLOW Urine Appearance SLIGHTLY-CLOUDY Urine pH 5.0 Ur Specific [place] 1.005 Urine Protein NEGATIVE Urine Glucose (UA) NEGATIVE Urine Ketones NEGATIVE Urine Blood NEGATIVE Urine Nitrite NEGATIVE Urine Bilirubin NEGATIVE Urine Urobilinogen NEGATIVE Ur Leukocyte Esterase TRACE H Urine WBC (Auto) 2 Urine RBC (Auto) 1 Urine Bacteria (Auto) 1+ Squamous Epi Cells Auto 8 Urine Ascorbic Acid 20 H Chest X-Ray 12/04/18 02:16 IMPRESSION: No acute cardiopulmonary process copyright 2010 [employer]- All Rights Reserved Head CT 12/04/18 02:16 IMPRESSION: 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 Atrophy. Small vessel ischemic change TECHNICAL DOCUMENTATION: Quality ID # 436: Final reports with documentation of one or more dose reduction techniques (e.g., Automated exposure control, adjustment of the mA and/or kV according to patient size, use of iterative reconstruction technique) copyright 2011 [employer]- All Rights Reserved TRAVEL OUTSIDE OF THE [place] IN LAST 30 DAYS: No - Related Data Allergies/Adverse Reactions: shellfish derived Allergy (Verified 10/22/18 07:10) Past Medical History - General Information source: Relative, Emergency Med Personnel - Social History Smoking Status: Former Smoker Family History: Reviewed & Not Pertinent Patient has suicidal ideation: No Patient has homicidal ideation: No - Past Medical History Cardiac Medical History: Reports: Hx Hypercholesterolemia, Hx Hypertension Pulmonary Medical History: Denies: Hx Tuberculosis Neurological Medical History: Reports: Hx Cerebrovascular Accident, Hx Seizures Renal/ Medical History: Denies: Hx Peritoneal Dialysis GI Medical History: Reports: Hx Gastroesophageal Reflux Disease Musculoskeletal Medical History: Reports Hx Arthritis, Reports Hx Gout Psychiatric Medical History: Reports: Hx Anxiety, Hx Dementia Denies: Hx Depression Past Surgical History: Reports: Hx Abdominal Surgery - hernia repair, Hx Herniorrhaphy, Hx Tubal Ligation - Immunizations Hx Diphtheria, Pertussis, Tetanus Vaccination: Yes Hx Pneumococcal Vaccination: 08/02/13 Review of Systems - Review of Systems Constitutional: No symptoms reported EENT: No symptoms reported Cardiovascular: See HPI Respiratory: No symptoms reported Gastrointestinal: No symptoms reported Genitourinary: No symptoms reported Female Genitourinary: No symptoms reported Musculoskeletal: No symptoms reported Skin: No symptoms reported Hematologic/Lymphatic: No symptoms reported Neurological/Psychological: See HPI Physical Exam - Vital signs Vitals: Temp Resp BP Pulse Ox 98.3 F 16 194/66 H 100 12/04/18 02:24 12/04/18 02:24 12/04/18 02:24 12/04/18 02:24 - Notes Notes: GENERAL: Alert, No acute distress. Continues to tell myself and staff that we are beautiful. Smiling, interacting well. HEAD: Normocephalic, atraumatic. EYES: Pupils equal, round, and reactive to light. Extraocular movements intact. ENT: Oral mucosa moist, tongue midline. NECK: Full range of motion. Supple. Trachea midline. LUNGS: Clear to auscultation bilaterally, no wheezes, rales, or rhonchi. No respiratory distress. HEART: Regular rate and rhythm. No murmur ABDOMEN: Soft, non-tender. Non-distended. Bowel sounds present in all 4 quadrants. EXTREMITIES: Moves all 4 extremities spontaneously. No edema, normal radial and dorsalis pedis pulses bilaterally. No cyanosis. BACK: no cervical, thoracic, lumbar midline tenderness. No saddle anesthesia, normal distal neurovascular exam. NEUROLOGICAL: Alert to self, patient's baseline per daughter. Normal speech. PSYCH: Normal affect, normal mood. SKIN: Warm, dry, normal turgor. No rashes or lesions noted. Course - Re-evaluation Re-evalutation: Laboratory 12/04/18 12/04/18 12/04/18 02:30 02:30 02:30 WBC 4.7 RBC 3.40 L Hgb 11.4 L Hct 33.7 L MCV 99 H MCH 33.5 H MCHC 33.9 RDW 13.7 Plt Count 221 Seg Neutrophils % 52.9 Lymphocytes % 35.0 Monocytes % 10.0 Eosinophils % 1.5 Basophils % 0.6 Absolute Neutrophils 2.5 Absolute Lymphocytes 1.7 Absolute Monocytes 0.5 Absolute Eosinophils 0.1 Absolute Basophils 0.0 Sodium 141.1 Potassium 3.8 Chloride 102 Carbon Dioxide 28 Anion Gap 11 BUN 11 Creatinine 1.15 Est GFR ( Amer) 55 L Est GFR (Non-Af Amer) 46 L Glucose 96 Calcium 9.3 Total Bilirubin 0.6 Direct Bilirubin 0.3 Neonat Total Bilirubin Not Reportable Neonat Direct Bilirubin Not Reportable Neonat Indirect Bili Not Reportable AST 20 ALT 16 Alkaline Phosphatase 76 Troponin I < 0.012 Total Protein 7.4 Albumin 3.8 Urine Color Urine Appearance Urine pH Ur Specific [place] Urine Protein Urine Glucose (UA) Urine Ketones Urine Blood Urine Nitrite Urine Bilirubin Urine Urobilinogen Ur Leukocyte Esterase Urine WBC (Auto) Urine RBC (Auto) Urine Bacteria (Auto) Squamous Epi Cells Auto Urine Ascorbic Acid 12/04/18 03:04 WBC RBC Hgb Hct MCV MCH MCHC RDW Plt Count Seg Neutrophils % Lymphocytes % Monocytes % Eosinophils % Basophils % Absolute Neutrophils Absolute Lymphocytes Absolute Monocytes Absolute Eosinophils Absolute Basophils Sodium Potassium Chloride Carbon Dioxide Anion Gap BUN Creatinine Est GFR ( Amer) Est GFR (Non-Af Amer) Glucose Calcium Total Bilirubin Direct Bilirubin Neonat Total Bilirubin Neonat Direct Bilirubin Neonat Indirect Bili AST ALT Alkaline Phosphatase Troponin I Total Protein Albumin Urine Color YELLOW Urine Appearance SLIGHTLY-CLOUDY Urine pH 5.0 Ur Specific [place] 1.005 Urine Protein NEGATIVE Urine Glucose (UA) NEGATIVE Urine Ketones NEGATIVE Urine Blood NEGATIVE Urine Nitrite NEGATIVE Urine Bilirubin NEGATIVE Urine Urobilinogen NEGATIVE Ur Leukocyte Esterase TRACE H Urine WBC (Auto) 2 Urine RBC (Auto) 1 Urine Bacteria (Auto) 1+ Squamous Epi Cells Auto 8 Urine Ascorbic Acid 20 H Chest X-Ray 12/04/18 02:16 IMPRESSION: No acute cardiopulmonary process copyright 2010 [employer]- All Rights Reserved Head CT 12/04/18 02:16 IMPRESSION: 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 Atrophy. Small vessel ischemic change TECHNICAL DOCUMENTATION: Quality ID # 436: Final reports with documentation of one or more dose reduction techniques (e.g., Automated exposure control, adjustment of the mA and/or kV according to patient size, use of iterative reconstruction technique) copyright 2011 [employer]- All Rights Reserved Patient's current blood pressure in the emergency department is 131/55. She continues without complaint. Patient's daughter is at bedside states that she is a lot more calm now. Patient was not given any medications to calm her down, staff just sat in the room and spoke with the patient calmly. Patient's labs sh ow no signs of leukocytosis, no urinary tract infection. Discussed with patient's daughter she should continue to follow-up with patient's primary care provider. Also discussed continuing antibiotic regimen as prescribed by patient's primary care provider. Daughter feels comfortable with patient discharge with close follow-up - Vital Signs Vital signs: Temp Pulse Resp BP Pulse Ox 97.9 F 12 131/55 H 100 12/04/18 05:02 12/04/18 05:02 12/04/18 05:02 12/04/18 05:02 - Laboratory Result Diagrams: 12/04/18 02:30 12/04/18 02:30 Laboratory results interpreted by me: 12/04/18 12/04/18 12/04/18 02:30 02:30 03:04 RBC 3.40 L Hgb 11.4 L Hct 33.7 L MCV 99 H MCH 33.5 H Est GFR ( Amer) 55 L Est GFR (Non-Af Amer) 46 L Ur Leukocyte Esterase TRACE H Urine Ascorbic Acid 20 H Discharge - Discharge Clinical Impression: Anxiety High blood pressure Qualifiers: Hypertension type: unspecified Qualified Code(s): I10 - Essential (primary) hypertension Condition: Stable Disposition: HOME, SELF-CARE Instructions: Anxiety ([facility]), High Blood Pressure ([facility]) Additional Instructions: As we discussed your mother has been seen in the emergency department for her high blood pressure and anxiety. Her labs revealed no signs of overwhelming infection. Her urine ultrasounds no sign of infection. Her blood pressure has come down within normal limits. I do not feel as though we need to change her current medication regimen as prescribed by her primary care doctor. Please make sure you continue taking her antibiotics also as prescribed by her primary care provider. Please also make sure he follow-up with her primary care provider in the next 24 to 48 hours. Please immediately return to the emergency room should you have any other concerning. Referrals: MARI ANDERSON MD [Primary Care Provider] - Follow up as needed
[2018-12-04 06:10] VITALS: BP 131/55
--- NOTE | 2018-12-04 23:09 | EKG REPORT ---
SEVERITY:- BORDERLINE ECG - SINUS RHYTHM BORDERLINE LEFT AXIS DEVIATION BORDERLINE T ABNORMALITIES, ANT-LAT LEADS : Confirmed by: Ryan Pinedo 04-Dec-2018 23:08:24
== END 2018-12-04 06:15 | disposition home or self-care (01) ==
LOC: ER 02:01
DX: I10 Essential (primary) hypertension (principal); F41.9 Anxiety disorder, unspecified; R42 Dizziness and giddiness; Z87.891 Personal history of nicotine dependence
CPT/HCPCS: 36415; 70450; 71045; 80053; 81001; 84484; 85025; 87086; 93005; 93010; 99284

== ENCOUNTER 2018-12-23 18:23 | Emergency (ER) | payer MEDICARE, MEDICAID ==
[2018-12-23 18:54] LABS: APPEARANCE,URINE CLEAR; BILIRUBIN,URINE NEGATIVE (NEGATIVE); COLOR,URINE STRAW; GLUCOSE, URINE NEGATIVE (NEGATIVE); KETONES,URINE NEGATIVE (NEGATIVE); LEUKOCYTE ESTERASE,URINE NEGATIVE (NEGATIVE); NITRITE,URINE NEGATIVE (NEGATIVE); PROTEIN,URINE NEGATIVE (NEGATIVE); URINE SPECIFIC GRAVITY 1.005; UROBILINOGEN,URINE NEGATIVE mg/dL (<2.0)
[2018-12-23 18:55] VITALS: BP 174/48
== END 2018-12-23 20:06 | disposition left against medical advice (07) ==
LOC: ER 18:23
DX: Z53.21 Procedure and treatment not carried out due to patient leaving prior to being seen by health care provider (principal)
CPT/HCPCS: 81001

== ENCOUNTER 2019-03-10 21:22 | Emergency (ER) | payer MEDICARE, MEDICAID ==
--- NOTE | 2019-03-10 21:49 | ER Document Report ---
ED General - General Chief Complaint: Urinary Problem Stated Complaint: POSSIBLE UTI Time Seen by Provider: 03/10/19 21:47 Primary Care Provider: MARI ANDERSON MD [Primary Care Provider] - Follow up as needed Notes: 79-year-old female patient, history of significant Alzheimer's with dementia to the emergency department for increased confusion. Family member states that she defecated on herself earlier today. Had a hard time figuring out how to put her pants down. She was concerned that maybe she had a urinary tract infection because the last time she was like this she had a UTI. No other major issues. TRAVEL OUTSIDE OF THE [place] IN LAST 30 DAYS: No - HPI Onset: This evening Onset/Duration: Gradual Quality of pain: No pain Severity: Mild Pain Level: Denies Associated symptoms: Other - Confusion - Related Data Allergies/Adverse Reactions: shellfish derived Allergy (Verified 10/22/18 07:10) Past Medical History - General Information source: Patient - Social History Smoking Status: Never Smoker Frequency of alcohol use: None Drug Abuse: None Family History: Reviewed & Not Pertinent Patient has suicidal ideation: No Patient has homicidal ideation: No - Past Medical History Cardiac Medical History: Reports: Hx Hypercholesterolemia, Hx Hypertension Pulmonary Medical History: Denies: Hx Tuberculosis Neurological Medical History: Reports: Hx Cerebrovascular Accident, Hx Seizures Renal/ Medical History: Denies: Hx Peritoneal Dialysis GI Medical History: Reports: Hx Gastroesophageal Reflux Disease Musculoskeletal Medical History: Reports Hx Arthritis, Reports Hx Gout Psychiatric Medical History: Reports: Hx Anxiety, Hx Dementia Denies: Hx Depression Past Surgical History: Reports: Hx Abdominal Surgery - hernia repair, Hx Herniorrhaphy, Hx Tubal Ligation - Immunizations Hx Diphtheria, Pertussis, Tetanus Vaccination: Yes Hx Pneumococcal Vaccination: 08/02/13 Review of Systems - Review of Systems Notes: Constitutional: denies: Chills, Diaphoresis, Fever, Malaise, Weakness EENT: denies: Eye discharge, Blurred vision, Tearing, Double vision, Nose congestion, Nose discharge, Throat swelling, Mouth pain Cardiovascular: denies: Palpitations, Heart racing, Orthopnea, Dyspnea, Chest pain Respiratory: denies: Cough, Hurts to breathe, Wheezing, Shortness of breath Gastrointestinal: denies: Abdominal pain, Diarrhea, Nausea, Vomiting, Black stools, bright red blood in stool Genitourinary: denies: Burning, Dysuria, Discharge, Frequency, Flank pain, Hematuria Musculoskeletal: denies: Joint pain, Joint swelling, Muscle pain, Muscle stiffness, back pain Hematologic/Lymphatic: denies: Anemia, Easy bleeding, Easy bruising, Blood clots Neurological/Psychological: Per family + Confusion, +Dementia, -Depression, - Loss of consciousness Skin: No lesions, no masses, no skin breakdown, no abscesses Physical Exam - Vital signs Vitals: BP Pulse Ox 129/81 H 99 03/10/19 21:43 03/10/19 21:43 Interpretation: Normal - General General appearance: Appears well, Alert - HEENT Head: Normocephalic, Atraumatic Eyes: Normal Pupils: PERRL - Respiratory Respiratory status: No respiratory distress Chest status: Nontender Breath sounds: Normal Chest palpation: Normal - Cardiovascular Rhythm: Regular Heart sounds: Normal auscultation Murmur: No - Abdominal Inspection: Normal Distension: No distension Bowel sounds: Normal Tenderness: Nontender Organomegaly: No organomegaly - Back Back: Normal, Nontender - Extremities General upper extremity: Normal inspection, Nontender, Normal color, Normal ROM, Normal temperature General lower extremity: Normal inspection, Nontender, Edema - SHe has some trace bilateral lower extremity edema., Normal color, Normal ROM, Normal temperature, Normal weight bearing. No: Haily's sign - Neurological Neuro grossly intact: Yes Cognition: Normal Orientation: AAOx4 [place] Coma Scale Eye Opening: Spontaneous [place] Coma Scale Verbal: Oriented [place] Coma Scale Motor: Obeys Commands [place] Coma Scale Total: 15 Speech: Normal Motor strength normal: LUE, RUE, LLE, RLE Sensory: Normal - Psychological Associated symptoms: Normal affect, Normal mood - Skin Skin Temperature: Warm Skin Moisture: Dry Skin Color: Normal Course - Re-evaluation Re-evalutation: 03/10/19 22:36 Blood sugars a little low at 70 so food ordered. Patient is alert and in no acute distress. Heart rate was 44 on EKG and 50 on the monitor. Patient is on 100 mg of metoprolol extended release. May need to cut that dose and a half at least. Family members are here. Patient seems quite well at this time. Discussion had with family members about decreasing the dose of metoprolol. Will repeat sugar before discharge. Still awaiting urinalysis results. 03/10/19 23:27 Laboratory 03/10/19 03/10/19 03/10/19 21:55 21:55 22:41 WBC 4.5 RBC 3.28 L Hgb 11.0 L Hct 32.5 L MCV 99 H MCH 33.6 H MCHC 33.8 RDW 13.0 Plt Count 177 Seg Neutrophils % 52.9 Lymphocytes % 34.2 Monocytes % 10.6 Eosinophils % 1.9 Basophils % 0.4 Absolute Neutrophils 2.4 Absolute Lymphocytes 1.5 Absolute Monocytes 0.5 Absolute Eosinophils 0.1 Absolute Basophils 0.0 Sodium 141.1 Potassium 3.4 L Chloride 105 Carbon Dioxide 30 Anion Gap 6 BUN 11 Creatinine 0.93 Est GFR ( Amer) > 60 Est GFR (Non-Af Amer) 58 L Glucose 70 L Calcium 9.0 Total Bilirubin 0.3 Direct Bilirubin 0.2 Neonat Total Bilirubin Not Reportable Neonat Direct Bilirubin Not Reportable Neonat Indirect Bili Not Reportable AST 24 ALT 21 Alkaline Phosphatase 72 Total Protein 6.5 Albumin 3.6 Urine Color YELLOW Urine Appearance CLEAR Urine pH 5.0 Ur Specific [place] 1.017 Urine Protein NEGATIVE Urine Glucose (UA) NEGATIVE Urine Ketones NEGATIVE Urine Blood NEGATIVE Urine Nitrite NEGATIVE Urine Bilirubin NEGATIVE Urine Urobilinogen 2.0 H Ur Leukocyte Esterase NEGATIVE Urine WBC (Auto) 2 Urine RBC (Auto) 1 Urine Mucus (Auto) RARE Urine Ascorbic Acid 40 H Heart rate is 44-50. Reportedly has been having heart rates in the low 50s at home. No evidence of UTI. Otherwise labs are unremarkable. Her sugar was a little low at 70 but is upright eating and drinking. We will repeat that before discharge. At this time I am recommending that they hold her metoprolol for the next 24 to 48 hours to see if this will improve her mentation and heart rate. Family members are comfortable with this plan. Will DC at this time. Currently patient's heart rate is 53 - Vital Signs Vital signs: Temp Pulse Resp BP Pulse Ox 98.5 F 49 L 18 147/87 H 98 03/10/19 21:45 03/10/19 21:45 03/10/19 21:45 03/10/19 23:03 03/10/19 23:03 - Laboratory Result Diagrams: 03/10/19 21:55 03/10/19 21:55 Laboratory results interpreted by me: 03/10/19 03/10/19 03/10/19 21:55 21:55 22:41 RBC 3.28 L Hgb 11.0 L Hct 32.5 L MCV 99 H MCH 33.6 H Potassium 3.4 L Est GFR (Non-Af Amer) 58 L Glucose 70 L Urine Urobilinogen 2.0 H Urine Ascorbic Acid 40 H - EKG Interpretation by Me EKG shows normal: [place], Intervals, QRS Complexes, ST-T Waves Rate: Bradycardia Discharge - Discharge Clinical Impression: Sinus bradycardia Dementia Qualifiers: Dementia type: Alzheimer's disease Alzheimer's disease onset: unspecified onset Dementia behavioral disturbance: without behavioral disturbance Qualified Code(s): G30.9 - Alzheimer's disease, unspecified; F02.80 - Dementia in other diseases classified elsewhere without behavioral disturbance Condition: Good Disposition: HOME, SELF-CARE Instructions: Altered Mental Status ([facility]) Additional Instructions: I am recommending that you stop your metoprolol for the next 48 hours. Resume your metoprolol but at a lower dose. A new prescription has been provided. Continue with although with the rest of your medication. In the event that your symptoms are getting worse please return or follow-up with your primary care doctor. Prescriptions: Metoprolol Succinate [Toprol Xl 25 mg Tab.sr] 25 mg PO DAILY 30 Days #30 tab.[id number] Referrals: MARI ANDERSON MD [Primary Care Provider] - Follow up as needed
[2019-03-10 22:02] LABS: ABSOLUTE EOSINOPHILS # (AUTO) 0.1 10^3/uL (0.0-0.6); ABSOLUTE LYMPHOCYTES (AUTO) 1.5 10^3/uL (0.5-4.7); ABSOLUTE MONOCYTES (AUTO) 0.5 10^3/uL (0.1-1.4); ABSOLUTE NEUT (AUTO) 2.4 10^3/uL (1.7-8.2); BASOPHILS % (AUTO) 0.4 % (0-2); EOSINOPHILS % (AUTO) 1.9 % (0-6); HEMATOCRIT 32.5 % (36.0-47.0); LYMPHOCYTES % (AUTO) 34.2 % (13-45); MEAN CORPUSCULAR HEMOGLOBIN 33.6 pg (27.0-33.4); MEAN CORPUSCULAR HGB CONC 33.8 g/dL (32.0-36.0); MEAN CORPUSCULAR VOLUME 99 fl (80-97); MONOCYTES % (AUTO) 10.6 % (3-13); PLATELET COUNT 177 10^3/uL (150-450); RED BLOOD COUNT 3.28 10^6/uL (3.72-5.28); SEGMENTED NEUTROPHILS % (AUTO) 52.9 % (42-78); TOTAL CELLS COUNTED % (AUTO) 100 %; WHITE BLOOD COUNT 4.5 10^3/uL (4.0-10.5)
[2019-03-10 22:23] LABS: ALBUMIN 3.6 g/dL (3.5-5.0); ALKALINE PHOSPHATASE 72 U/L (38-126); ANION GAP 6 (5-19); ASPARTATE AMINO TRANSFERASE 24 U/L (14-36); BILIRUBIN,DIRECT 0.2 mg/dL (0.0-0.4); BILIRUBIN,TOTAL 0.3 mg/dL (0.2-1.3); BLOOD UREA NITROGEN 11 mg/dL (7-20); CARBON DIOXIDE 30 mmol/L (22-30); CHLORIDE 105 mmol/L (98-107); GLUCOSE 70 mg/dL (75-110); POTASSIUM 3.4 mmol/L (3.6-5.0); TOTAL PROTEIN 6.5 g/dL (6.3-8.2)
[2019-03-10 23:10] LABS: APPEARANCE,URINE CLEAR; BILIRUBIN,URINE NEGATIVE (NEGATIVE); COLOR,URINE YELLOW; GLUCOSE, URINE NEGATIVE (NEGATIVE); KETONES,URINE NEGATIVE (NEGATIVE); LEUKOCYTE ESTERASE,URINE NEGATIVE (NEGATIVE); NITRITE,URINE NEGATIVE (NEGATIVE); PROTEIN,URINE NEGATIVE (NEGATIVE); URINE SPECIFIC GRAVITY 1.017
[2019-03-10 23:26] VITALS: BP 147/87
--- NOTE | 2019-03-11 09:39 | EKG REPORT ---
SEVERITY:- ABNORMAL ECG - SINUS BRADYCARDIA PROBABLE ANTEROSEPTAL INFARCT, AGE INDETERM : Confirmed by: Kong Hobson MD 11-Mar-2019 09:39:23
== END 2019-03-11 00:12 | disposition home or self-care (01) ==
LOC: ER 21:22
DX: R00.1 Bradycardia, unspecified (principal); F02.80 Dementia in other diseases classified elsewhere, unspecified severity, without behavioral disturbance, psychotic disturbance, mood disturbance, and anxiety; G30.9 Alzheimer's disease, unspecified; E78.00 Pure hypercholesterolemia, unspecified; I10 Essential (primary) hypertension; Z86.73 Personal history of transient ischemic attack (TIA), and cerebral infarction without residual deficits; Z98.51 Tubal ligation status
CPT/HCPCS: 36415; 80053; 81001; 82962; 85025; 87086; 93005; 93010; 99284

== ENCOUNTER 2019-04-07 23:04 | Emergency (ER) | payer MEDICARE, MEDICAID ==
--- NOTE | 2019-04-07 23:43 | ER Document Report ---
ED Extremity Problem, Lower - General Chief Complaint: Hip Pain Stated Complaint: FALL Primary Care Provider: MARI ANDERSON MD [Primary Care Provider] - Follow up as needed Notes: Per daughter patient is an 79-year-old with a history of dementia who was getting up out of her bed and fell back fell onto her left hip. Daughter was there immediately she had no loss of consciousness did not hit her head her only complaint is left hip pain but when I palpate her right hip she also claims it hurts. TRAVEL OUTSIDE OF THE [place] IN LAST 30 DAYS: No - HPI Patient complains to provider of: Injury Location: Hip Occurred: Just prior to arrival Where: Home Onset/Duration: Sudden Quality of pain: Sharp Severity: Mild Pain Level: 2 Context: denies: Barefoot, Burn, Crush, Direct blow, Fell, Laceration, Prolonged pressure on ext, Recent immobilization, Recent surgery, Recent travel, Stubbed, Twisted, Wearing shoes, Other Recent injury: Yes Associated symptoms: denies: Chest pain, Chills, Dizzy, Fainting, Fever, [place] a crack, [place] a pop, Hurts to breath, Painful ambulation, Rapid heart rate, Seizure, Short of breath, Sweaty, Unable to bear weight, Weak, Other Exacerbated by: Movement Relieved by: Nothing - Related Data Allergies/Adverse Reactions: shellfish derived Allergy (Verified 10/22/18 07:10) Past Medical History - General Information source: Patient Cannot obtain history due to: Dementia - Social History Smoking Status: Unknown if Ever Smoked Family History: Reviewed & Not Pertinent - Past Medical History Cardiac Medical History: Reports: Hx Hypercholesterolemia, Hx Hypertension Pulmonary Medical History: Denies: Hx Tuberculosis Neurological Medical History: Reports: Hx Cerebrovascular Accident, Hx Seizures Renal/ Medical History: Denies: Hx Peritoneal Dialysis GI Medical History: Reports: Hx Gastroesophageal Reflux Disease Musculoskeletal Medical History: Reports Hx Arthritis, Reports Hx Gout Psychiatric Medical History: Reports: Hx Anxiety, Hx Dementia Denies: Hx Depression Past Surgical History: Reports: Hx Abdominal Surgery - hernia repair, Hx Herniorrhaphy, Hx Tubal Ligation - Immunizations Hx Diphtheria, Pertussis, Tetanus Vaccination: Yes Hx Pneumococcal Vaccination: 08/02/13 Review of Systems - Review of Systems -: Yes ROS unobtainable due to patient's medical condition Physical Exam - Vital signs Vitals: Temp Pulse Resp BP Pulse Ox 98.1 F 58 L 16 160/60 H 100 04/07/19 23:39 04/07/19 23:39 04/07/19 23:39 04/07/19 23:39 04/07/19 23:39 Notes: PHYSICAL EXAMINATION: GENERAL: Well-appearing, well-nourished and in no acute distress. HEAD: Atraumatic, normocephalic. EYES: Pupils equal round and reactive to light, extraocular movements intact, sclera anicteric, conjunctiva are normal. ENT: nares patent, oropharynx clear without exudates. Moist mucous membranes. NECK: Normal range of motion, supple without lymphadenopathy LUNGS: Breath sounds clear to auscultation bilaterally and equal. No wheezes rales or rhonchi. HEART: Regular rate and rhythm without murmurs ABDOMEN: Soft, nontender, normoactive bowel sounds. No guarding, no rebound. No masses appreciated. EXTREMITIES: Pain to palpation over both hips left greater than right. NEUROLOGICAL: Alert to her name only. Does follow commands. PSYCH: Normal mood, normal affect. SKIN: Warm, Dry, normal turgor, no rashes or lesions noted. Course - Vital Signs Vital signs: Temp Pulse Resp BP Pulse Ox 98.1 F 58 L 16 160/60 H 100 04/07/19 23:39 04/07/19 23:39 04/07/19 23:39 04/07/19 23:39 04/07/19 23:39 - Diagnostic Test Radiology reviewed: Image reviewed, Reports reviewed - Transfer of Care Notes: 04/08/19 00:50 Patient was able to ambulate with a walker without any difficulty Discharge - Discharge Clinical Impression: Hip sprain Condition: Good Disposition: HOME, SELF-CARE Instructions: Sprain ([facility]) Additional Instructions: Return if worse. Tylenol for pain ice for 20 minutes 3 times a day to the hip Referrals: MARI ANDERSON MD [Primary Care Provider] - Follow up as needed
--- NOTE | 2019-04-08 00:24 | RADIOLOGY REPORT (SQ) ---
CLINICAL HISTORY: fx COMPARISON: None. TECHNIQUE: XR HIP 1 VIEW BILATERAL 04/07/2019 11:24 PM CDT FINDINGS: There is no fracture. 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 There are extensive coarse calcifications throughout the central pelvis, which may relate to fibroids. IMPRESSION: No acute osseous findings.
[2019-04-08 01:14] VITALS: BP 162/60
== END 2019-04-08 02:22 | disposition home or self-care (01) ==
LOC: ER 23:04
DX: S73.102A Unspecified sprain of left hip, initial encounter (principal); F03.90 Unspecified dementia, unspecified severity, without behavioral disturbance, psychotic disturbance, mood disturbance, and anxiety; W06.XXXA Fall from bed, initial encounter; Y92.003 Bedroom of unspecified non-institutional (private) residence as the place of occurrence of the external cause; E78.00 Pure hypercholesterolemia, unspecified; I10 Essential (primary) hypertension; Z86.73 Personal history of transient ischemic attack (TIA), and cerebral infarction without residual deficits; Z91.013 Allergy to seafood; Z98.51 Tubal ligation status
CPT/HCPCS: 73522; 99283